=== PATIENT | female | born 1980 | race Caucasian/White ===

== ENCOUNTER 2016-12-11 | Emergency (ER) | payer MEDICAID | END 2016-12-11 19:46 | disposition home or self-care (01) ==

== ENCOUNTER 2016-12-12 13:26 | Emergency (ER) | payer MEDICAID ==
[2016-12-12] MEDS ORDERED: SULFAMETH/TRIMETH DS 800/160 MG TABLET PO STA (14:25)
[2016-12-12] MEDS ORDERED: HYDROcod/ACETAM 5/325 MG TABLET PO STA (14:25)
[2016-12-12] MEDS ORDERED: ONDANSETRON ODT 4 MG TABLET TL STA (14:32)
[2016-12-12] MEDS ORDERED: CEPHALEXIN 250 MG CAPSULE PO STA (14:32)
[2016-12-12] MEDS ORDERED: HYDROcod/ACETAM 5/325 MG TABLET ONE (14:35)
[2016-12-12] MEDS ORDERED: CEPHALEXIN 250 MG CAPSULE PO ONE (14:36)
[2016-12-12] MEDS ORDERED: ONDANSETRON ODT 4 MG TABLET ONE (14:36)
[2016-12-12] MEDS ORDERED: SULFAMETH/TRIMETH DS 800/160 MG TABLET PO ONE (14:36)
== END 2016-12-12 14:52 | disposition home or self-care (01) ==
DX: L03.211 Cellulitis of face (principal)
CPT/HCPCS: 99283; A9270; Q0162

== ENCOUNTER 2017-06-21 13:05 | Emergency (ER) | payer MEDICAID ==
[2017-06-21] MEDS ORDERED: HYDROcod/ACETAM 5/325 MG TABLET PO STA (13:16)
--- NOTE | 2017-06-21 13:18 | ED Physician Documentation ---
PD HPI UPPER EXT INJURY - Stated complaint Stated Complaint: R FINGERS INJ - History obtained from History obtained from: Patient - History of Present Illness Location: Right, Hand Type of injury: Crush (in car door, hurt mid phalanges of 3rd/4th fingers) Where injury occurred: Home Timing - onset: Yesterday Review of Systems Constitutional: reports: Reviewed and negative Cardiac: reports: Reviewed and negative Respiratory: reports: Reviewed and negative PD PAST MEDICAL HISTORY - Past Medical History Cardiovascular: None Respiratory: None Neuro: Headache/migraine Endocrine/Autoimmune: None GI: None 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 : None HEENT: None Psych: Depression, Anxiety Musculoskeletal: None Derm: None - Past Surgical History Past Surgical History: Yes - Present Medications Home Medications: Ambulatory Orders Medication Instructions Recorded Confirmed Buspirone HCl 30 mg PO TID 10/20/15 06/21/17 Fluoxetine HCl [Prozac] 20 mg PO DAILY 10/20/15 06/21/17 Loratadine [Claritin] 10 mg PO DAILY PRN #5 tablet 10/30/15 06/21/17 Pantoprazole Sodium [Protonix] 20 mg PO DAILY 04/23/16 06/21/17 Ondansetron Odt [Zofran] 4 mg TL Q6H PRN #10 tablet 12/12/16 06/21/17 - Allergies Allergies/Adverse Reactions: Allergies Allergy/AdvReac Type Severity Reaction Status Date / Time aspirin Allergy Unknown Verified 06/21/17 13:22 hydromorphone HCl * Allergy Nausea Verified 06/21/17 13:22 [From Dilaudid] iodine Allergy Respiratory Verified 06/21/17 13:22 latex Allergy Hives Verified 06/21/17 13:22 oxycodone HCl * Allergy Emesis Verified 06/21/17 13:22 [From Percocet] Penicillins Allergy Hives Verified 06/21/17 13:22 codeine AdvReac Emesis Verified 06/21/17 13:22 pseudoephedrine HCl * AdvReac Edema Verified 06/21/17 13:22 [From Sudafed] erythromycin eye ointment AdvReac Intermediate swelling Uncoded 06/21/17 13:22 - Social History Does the pt smoke?: No Smoking Status: Never smoker Does the pt drink ETOH?: Yes Does the pt have substance abuse?: No - Immunizations Immunizations are current?: Yes - POLST Patient has POLST: No PD ED PE NORMAL - Vitals Vital signs reviewed: Yes - General General: Alert and oriented X 3, No acute distress - Extremities Extremities: Other (Tender to palpation mid phalanges of the third and fourth fingers of the right hand without deformity. Limited range of motion but NVI at the tips.) - Neuro Neuro: Alert and oriented X 3, Normal speech - Psych Psych: Normal mood, Normal affect Results - Vitals Vitals: Vital Signs - 24 hr 06/21/17 13:17 Temperature 36.7 C Heart Rate 82 Respiratory 16 Rate Blood Pressure 111/77 O2 Saturation 98 Oxygen O2 Source Room air - Rads (name of study) 3v R hand Radiology: EMP read contemporaneously (normal) Departure - Departure Disposition: 01 Home, Self Care Clinical Impression: Injury, crush, finger Qualifiers: Encounter type: initial encounter Qualified Code(s): S67.10XA - Crushing injury of unspecified finger(s), initial encounter Condition: Good Record reviewed to determine appropriate education?: Yes Instructions: ED Crush Injury Finger No Fx Comments: Ibuprofen as needed for pain, follow-up with your physician in 1 week if not improved. Discharge Date/Time: 06/21/17 13:39
[2017-06-21 13:19] VITALS: BP 111/77
[2017-06-21] MEDS ORDERED: HYDROcod/ACETAM 5/325 MG TABLET ONE (13:32)
--- NOTE | 2017-06-21 13:50 | XRAY Preliminary Report ---
Exam: XR Hand 3 View RT IMPRESSION: No fracture or subluxation. [facility] SITE ID: [id number]
--- NOTE | 2017-06-21 13:52 | XRAY Report ---
EXAM: RIGHT HAND RADIOGRAPHY EXAM DATE: 06/21/2017 01:41 PM. CLINICAL HISTORY: Injuries of 3rd/4th fingers. COMPARISON: None. TECHNIQUE: 3 views. FINDINGS: Bones: Normal. No fractures or bone lesions. Joints: Normal. No subluxations. Soft Tissues: Normal. No soft tissue swelling. IMPRESSION: No fracture or subluxation. [facility] Referring Provider Line: [phone] SITE ID: [id number]
== END 2017-06-21 13:39 | disposition home or self-care (01) ==
LOC: ED 13:05
DX: S67.190A Crushing injury of right index finger, initial encounter (principal); S67.192A Crushing injury of right middle finger, initial encounter; W23.0XXA Caught, crushed, jammed, or pinched between moving objects, initial encounter; Y93.89 Activity, other specified
CPT/HCPCS: 73130; 99283; A9270

== ENCOUNTER 2017-08-17 15:18 | Emergency (ER) | payer MEDICAID ==
[2017-08-17 15:27] VITALS: BP 108/75
[2017-08-17 15:54] LABS: HCG UR QUAL POSITIVE
--- NOTE | 2017-08-17 16:41 | ED Physician Documentation ---
PD HPI NVD - Stated complaint Stated Complaint: NAUSEA - Chief complaint Chief Complaint: Abd Pain - History obtained from History obtained from: Patient - History of Present Illness Timing - duration: Days Timing - details: Gradual onset, Still present, Waxing and waning Associated symptoms: Loss of appetite, Other (having nausea and some breast tenderness for several days. Is late on menses by a week. Had home test. Mild lower abd cramping at times. No bleeding. Is going on plane trip to visit relatives in [place] and wants to be sure flying is okay in early .). No: Abdominal pain, Dizzy, Near syncope / syncope Worsened by: Eating Recently seen: Not recently seen Review of Systems Constitutional: denies: Fever, Chills Nose: denies: Rhinorrhea / runny nose, Congestion Throat: denies: Sore throat Respiratory: denies: Cough GI: reports: Nausea. denies: Abdominal Swelling, Vomiting, Diarrhea, Bloody / black stool : reports: LMP (5 weeks ago). 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 : None HEENT: None Psych: Depression, Anxiety Musculoskeletal: None Derm: None - Past Surgical History Past Surgical History: Yes - Present Medications Home Medications: Ambulatory Orders Medication Instructions Recorded Confirmed Buspirone HCl 30 mg PO TID 10/20/15 06/21/17 Fluoxetine HCl [Prozac] 20 mg PO DAILY 10/20/15 06/21/17 Loratadine [Claritin] 10 mg PO DAILY PRN #5 tablet 10/30/15 06/21/17 Pantoprazole Sodium [Protonix] 20 mg PO DAILY 04/23/16 06/21/17 Ondansetron Odt [Zofran] 4 mg TL Q6H PRN #10 tablet 12/12/16 06/21/17 Doxylamine Succinate [[place]] 25 mg PO TID #60 tablet 08/17/17 Ondansetron HCl [Zofran] 4 mg PO Q6H PRN #20 tablet 08/17/17 Pnv95/Ferrous Fumarate/FA 1 each PO DAILY #30 tablet 08/17/17 [ Tablet] Pyridoxine HCl [Vitamin B-6] 25 mg PO BID #60 tablet 08/17/17 - Allergies Allergies/Adverse Reactions: Allergies Allergy/AdvReac Type Severity Reaction Status Date / Time aspirin Allergy Unknown Verified 06/21/17 13:22 hydromorphone HCl * Allergy Nausea Verified 06/21/17 13:22 [From Dilaudid] iodine Allergy Respiratory Verified 06/21/17 13:22 latex Allergy Hives Verified 06/21/17 13:22 oxycodone HCl * Allergy Emesis Verified 06/21/17 13:22 [From Percocet] Penicillins Allergy Hives Verified 06/21/17 13:22 codeine AdvReac Emesis Verified 06/21/17 13:22 pseudoephedrine HCl * AdvReac Edema Verified 06/21/17 13:22 [From Sudafed] erythromycin eye ointment AdvReac Intermediate swelling Uncoded 06/21/17 13:22 - Social History Does the pt smoke?: No Smoking Status: Never smoker Does the pt drink ETOH?: Yes Does the pt have substance abuse?: No - Immunizations Immunizations are current?: Yes - POLST Patient has POLST: No PD ED PE NORMAL - Vitals Vital signs reviewed: Yes - General General: Alert and oriented X 3, No acute distress, Well developed/nourished - HEENT HEENT: Pharynx benign - Neck Neck: Supple, no meningeal sign, No adenopathy - Cardiac Cardiac: RRR, No murmur - Respiratory Respiratory: Clear bilaterally - Abdomen Abdomen: Soft, Non tender - Female Female : Deferred - Back Back: No CVA TTP - Derm Derm: Normal color, Warm and dry - Neuro Neuro: Alert and oriented X 3, No motor deficit, Normal speech Results - Vitals Vitals: Oxygen O2 Source Room air - Labs Labs: Laboratory Tests 08/17/17 08/17/17 08/17/17 15:37 17:00 17:00 WBC 7.8 RBC 4.59 Hgb 13.7 Hct 40.3 MCV 87.9 MCH 29.8 MCHC 33.9 RDW 13.4 Plt Count 250 MPV 7.3 L Neut # 5.1 Lymph # 2.0 [place] # 0.6 Eos # 0.0 Baso # 0.1 Absolute Nucleated RBC 0.00 Nucleated RBC % 0.0 HCG, Quant 4350.00 Ur Specific [place] <=1.005 Urine HCG, Qual POSITIVE - Rads (name of study) IUP with GS size 4.6 weeks Radiology: Prelim report reviewed (IUP with GS 4.6 weeks. No free fluid. ) PD MEDICAL DECISION MAKING - ED course Complexity details: reviewed results, considered differential (early with IUP established by U/S. ), d/w patient Departure - Departure Disposition: 01 Home, Self Care Clinical Impression: Nausea, Early stage of Intrauterine normal Qualifiers: Trimester: first trimester Qualified Code(s): Z34.91 - Encounter for supervision of normal , unspecified, first trimester Condition: Stable Record reviewed to determine appropriate education?: Yes Instructions: ED Preg Established Normal Sxs Follow-Up: Savannah Mo ARNP [Primary Care Provider] - Andreia Betts DO [Provider Admit Priv/Credential] - Prescriptions: Doxylamine Succinate [Wal-[place]eland] 25 mg PO TID #60 tablet Ondansetron HCl [Zofran] 4 mg PO Q6H PRN #20 tablet PRN Reason: Nausea / Vomiting Pnv95/Ferrous Fumarate/FA [ Tablet] 1 each PO DAILY #30 tablet Pyridoxine HCl [Vitamin B-6] 25 mg PO BID #60 tablet Comments: Small frequent fluids. Try to stay well-hydrated. Vitamin B6 twice daily for the next month. Add doxylamine 3 times a day as needed for nausea. Add ondansetron every 6 hours additionally if needed for nausea. Take vitamin daily though hold it if you are feeling more nauseous with it. Follow- up with PATHOLOGY TECH upon return from her trip. Discharge Date/Time: 08/17/17 18:24
[2017-08-17] MEDS ORDERED: METOCLOPRAMIDE 10 MG TABLET PO STA (16:52)
[2017-08-17] MEDS ORDERED: METOCLOPRAMIDE 10 MG TABLET ONE (17:01)
[2017-08-17 17:08] LABS: BASOPHILS # (AUTO) 0.1 10^3/uL (0.0-0.1); HGB - HEMOGLOBIN 13.7 g/dL (12.0-16.0); MONOCYTES # (AUTO) 0.6 10^3/uL (0.0-1.0)
[2017-08-17 17:10] LABS: BASOPHILS % (AUTO) 0.7 %; EOSINOPHILS % (AUTO) 0.5 %; HCT - HEMATOCRIT 40.3 % (37.0-47.0); LYMPHOCYTES % (AUTO) 25.9 %; MEAN CORPUSCULAR HEMOGLOBIN 29.8 pg (27.0-31.0); MEAN CORPUSCULAR HGB CONC 33.9 g/dL (32.0-36.0); MEAN CORPUSCULAR VOLUME 87.9 fL (81.0-99.0); MEAN PLATELET VOLUME 7.3 fL (7.9-10.8); MONOCYTES % (AUTO) 7.5 %; NEUTROPHILS # (AUTO) 5.1 10^3/uL (1.5-6.6); NEUTROPHILS % (AUTO) 65.4 %; RED BLOOD COUNT 4.59 10^6/uL (4.20-5.40); RED CELL DISTRIBUTION WIDTH 13.4 % (12.0-15.0); UNCORRECTED WHITE BLOOD COUNT 7.8 x10^3/uL; WHITE BLOOD COUNT 7.8 x10^3/uL (4.8-10.8)
--- NOTE | 2017-08-17 18:31 | Ultrasound Preliminary Report ---
Exam: US OB First Trimester IMPRESSION: 1. Single viable intrauterine at EGA 5 weeks 2 days with RUFUS 04/17/2018 based on mean gesta tional sac diameter, which is concordant with clinical dates. 2. No ovarian torsion. 3. 3.5 and 2.6 cm left ovarian cysts. [facility] SITE ID: [id number]
--- NOTE | 2017-08-17 18:39 | Ultrasound Report ---
REVISED: THIS REPORT WAS ORIGINALLY SIGNED ON 08/17/2017 @ 1839. ORDERS LINKED ON 08/20/2017 EXAM: FIRST TRIMESTER OBSTETRIC ULTRASOUND (Less than 11 weeks) EXAM DATE: 08/17/2017 06:04 PM. CLINICAL HISTORY: Early , cramping and nausea. LMP: 07/14/2017. COMPARISONS: None. TECHNIQUE: Transabdominal and transvaginal ultrasound examination with static image documentation. CLINICAL DATES: EGA 4 weeks, 6 days with RUFUS 04/20/2018 based on LMP. ASSESSMENT: Gestational Sac: Single intrauterine. Mean gestational sac diameter: 6.0 mm = 5 weeks 2 days. Embryo: CRL not visualized. No cardiac activity seen. Yolk sac: Not visualized. Amniotic fluid: Not accurately assessed at this gestational age. Early placenta: Not visible at this gestational age. Other: No perigestational fluid collection demonstrated. MATERNAL STRUCTURES: Uterus: Anteverted. Unremarkable. Cervix: Closed. Right Ovary/Adnexa: Right ovary measures 3.5 x 2.5 x 2.7 cm, 12.3 cc. Normal right ovarian blood flow. Left Ovary/Adnexa: Unremarkable. The ovary measures 6.0 x 3.9 x 4.1 cm, volume 50.1 cc. Normal left ovarian blood flow. 2.0 x 3.5 x 1.6 cm and 1.8 x 2.6 x 1.6 cm cyst (versus a single septated 3.3 x 2.8 x 3.2 cm cyst). Free Fluid: None. Other: None. IMPRESSION: 1. Single viable intrauterine at EGA 5 weeks 2 days with RUFUS 2017 based on mean gestational sac diameter, which is concordant with clinical dates. 2. No ovarian torsion. 3. 3.5 and 2.6 cm left ovarian cysts. [facility] Referring Provider Line: [phone] SITE ID: [id number]
== END 2017-08-17 18:24 | disposition home or self-care (01) ==
LOC: ED 15:18
DX: Z34.91 Encounter for supervision of normal pregnancy, unspecified, first trimester (principal); R11.0 Nausea; Z3A.01 Less than 8 weeks gestation of pregnancy
CPT/HCPCS: 36415; 76801; 76817; 81025; 84702; 85025; 99283; A9270

== ENCOUNTER 2017-09-24 14:08 | Outpatient (CLI) | payer MEDICAID ==
[2017-09-24 14:28] LABS: BASOPHILS # (AUTO) 0.1 10^3/uL (0.0-0.1); BASOPHILS % (AUTO) 0.7 %; EOSINOPHILS % (AUTO) 0.4 %; HCT - HEMATOCRIT 38.8 % (37.0-47.0); HGB - HEMOGLOBIN 13.3 g/dL (12.0-16.0); LYMPHOCYTES # (AUTO) 1.6 10^3/uL (1.5-3.5); LYMPHOCYTES % (AUTO) 19.8 %; MEAN CORPUSCULAR HEMOGLOBIN 29.9 pg (27.0-31.0); MEAN CORPUSCULAR HGB CONC 34.3 g/dL (32.0-36.0); MEAN PLATELET VOLUME 6.9 fL (7.9-10.8); MONOCYTES # (AUTO) 0.4 10^3/uL (0.0-1.0); MONOCYTES % (AUTO) 5.5 %; NEUTROPHILS # (AUTO) 6.1 10^3/uL (1.5-6.6); NEUTROPHILS % (AUTO) 73.6 %; RED BLOOD COUNT 4.46 10^6/uL (4.20-5.40); RED CELL DISTRIBUTION WIDTH 13.8 % (12.0-15.0); UNCORRECTED WHITE BLOOD COUNT 8.2 x10^3/uL; WHITE BLOOD COUNT 8.2 x10^3/uL (4.8-10.8)
[2017-09-24 14:38] LABS: BILIRUBIN,URINE NEGATIVE (NEGATIVE)
[2017-09-24 14:58] LABS: WBC,URINE 0-3 /HPF (0-5)
[2017-09-29 18:31] LABS: TEST RESULT REPORT
== END 2017-09-24 14:09 | disposition home or self-care (01) ==
LOC: LAB 14:08
PROVIDERS: ATTEND Obstetrics & Gynecology
DX: Z36.9 Encounter for antenatal screening, unspecified (principal); Z11.3 Encounter for screening for infections with a predominantly sexual mode of transmission; N89.8 Other specified noninflammatory disorders of vagina
CPT/HCPCS: 36415; 81001; 81599; 85025; 86762; 86780; 86850; 86900; 86901; 87340; 87389; 87480; 87491; 87510; 87591; 87660

== ENCOUNTER 2017-09-24 14:20 | Outpatient (CLI) | payer MEDICAID | END 2017-09-24 14:21 | disposition home or self-care (01) | LOC: LAB.R 14:20 | PROVIDERS: ATTEND Obstetrics & Gynecology | DX: Z11.3 Encounter for screening for infections with a predominantly sexual mode of transmission (principal); N89.8 Other specified noninflammatory disorders of vagina | CPT/HCPCS: 87480; 87491; 87510; 87591; 87660 ==

== ENCOUNTER 2017-10-02 09:24 | Outpatient (CLI) | payer MEDICAID ==
--- NOTE | 2017-10-02 12:13 | Ultrasound Report ---
FIRST TRIMESTER OB ULTRASOUND WITH TRANSVAGINAL: 10/02/2017 CLINICAL INDICATION: dating. TECHNIQUE: Transabdominal pelvic ultrasound performed for global evaluation. Transvaginal pelvic ul trasound performed for detailed evaluation. Real-time scanning performed and static images obtained. COMPARISON: 08/17/2017 FINDINGS: There is a single viable intrauterine gestation present. heart rate is 159 BPM. By crown-rump length, the fetus measures 11 weeks 5 days (12 weeks 0 days by previous sonogram). The g estational sac is regular. The right ovary measures 5.3 x 3.6 x 2.2 cm, and demonstrates a 2.8 cm corpus luteum. The left ovary measures 5.3 x 2.1 x 1.7 cm, and contains a 2.1 cm cyst. No free fluid is present. IMPRESSION: SINGLE VIABLE INTRAUTERINE GESTATION, MEASURING 11 WEEKS 5 DAYS BY CROWN-RUMP LENGTH. E XPECTED GROWTH FROM PREVIOUS SONOGRAM OF 08/17/2017. JOB #: [id number] EXT JOB #:[id number]
== END 2017-10-02 09:25 | disposition home or self-care (01) ==
LOC: DI 09:24
PROVIDERS: ATTEND Obstetrics & Gynecology
DX: Z36.87 Encounter for antenatal screening for uncertain dates (principal)
CPT/HCPCS: 76801; 76817

== ENCOUNTER 2017-10-11 18:15 | Outpatient (CLI) | payer MEDICAID | END 2017-10-11 18:16 | disposition EMS.NT | LOC: EMS 18:15 | PROVIDERS: ATTEND Surgery | DX: R05 Cough (principal) ==

== ENCOUNTER 2017-10-11 22:46 | Emergency (ER) | payer MEDICAID ==
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
[2017-10-11] MEDS ORDERED: ALBUTEROL NEB 2.5 MG/3 ML INH STA (23:08)
[2017-10-11] MEDS ORDERED: DEXAMETHASONE 10 MG/ML VIAL PO STA (23:08)
[2017-10-11] MEDS ORDERED: LIDOCAINE OINTMENT 5% 35.44 GM TUBE TOP STA (23:08)
[2017-10-11] MEDS ORDERED: ACETAMINOPHEN 325 MG TABLET PO STA (23:09)
[2017-10-11] MEDS ORDERED: ALBUTEROL NEB 2.5 MG/3 ML INH ONE (23:21)
[2017-10-11] MEDS ORDERED: ACETAMINOPHEN 325 MG TABLET PO ONE (23:22)
[2017-10-11] MEDS ORDERED: DEXAMETHASONE 10 MG/ML VIAL ONE (23:22)
[2017-10-11] MEDS ORDERED: LIDOCAINE OINTMENT 5% 35.44 GM TUBE ONE (23:22)
[2017-10-12] MEDS ORDERED: ONDANSETRON ODT 4 MG TABLET TL STA (00:32)
[2017-10-12] MEDS ORDERED: ONDANSETRON ODT 4 MG TABLET ONE (00:43)
[2017-10-12 00:48] VITALS: BP 103/65
== END 2017-10-12 00:50 | disposition home or self-care (01) ==
LOC: ED 22:46
DX: O26.891 Other specified pregnancy related conditions, first trimester (principal); T59.811A Toxic effect of smoke, accidental (unintentional), initial encounter; J68.9 Unspecified respiratory condition due to chemicals, gases, fumes and vapors; R06.02 Shortness of breath; T23.222A Burn of second degree of single left finger (nail) except thumb, initial encounter; T31.0 Burns involving less than 10% of body surface; X19.XXXA Contact with other heat and hot substances, initial encounter; Y92.030 Kitchen in apartment as the place of occurrence of the external cause; Z3A.13 13 weeks gestation of pregnancy
CPT/HCPCS: 82375; 94640; 99283; 99284; A9270; J7613; Q0162

== ENCOUNTER 2017-10-22 14:07 | Outpatient (CLI) | payer SELFPAY | END 2017-10-22 14:08 | disposition home or self-care (01) | LOC: LAB 14:07 | DX: O09.522 Supervision of elderly multigravida, second trimester (principal) | CPT/HCPCS: 36415 ==

== ENCOUNTER 2017-11-17 13:21 | Emergency (ER) | payer MEDICAID ==
[2017-11-17 13:42] VITALS: BP 115/70
--- NOTE | 2017-11-17 14:07 | ED Physician Documentation ---
History of Present Illness - Stated complaint Stated Complaint: 18WKS PREGANT-NO BABY MOVEMENT - Chief complaint Chief Complaint: General - History obtained from History obtained from: Patient - History of Present Illness Timing: Today Pain level max: 0 Pain level now: 0 Improved by: nothing Worsened by: nothing - Additonal information Additional information: Patient is a 37-year-old female 4 para 3 who presents to the emergency department with decreased movement over the past few days. Went [facility] this morning to be seen, but states the wait was too long so came here. Has not had any vaginal bleeding or discharge. No cramping. 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 : None HEENT: None Psych: Depression, Anxiety Musculoskeletal: None Derm: None - Past Surgical History Past Surgical History: Yes - Present Medications Home Medications: Ambulatory Orders Medication Instructions Recorded Confirmed Buspirone HCl 30 mg PO TID 10/20/15 11/17/17 Fluoxetine HCl [Prozac] 20 mg PO DAILY 10/20/15 11/17/17 Loratadine [Claritin] 10 mg PO DAILY PRN #5 tablet 10/30/15 11/17/17 Pantoprazole Sodium [Protonix] 20 mg PO DAILY 04/23/16 11/17/17 Ondansetron Odt [Zofran] 4 mg TL Q6H PRN #10 tablet 12/12/16 11/17/17 Doxylamine Succinate [[place]] 25 mg PO TID #60 tablet 08/17/17 11/17/17 Ondansetron HCl [Zofran] 4 mg PO Q6H PRN #20 tablet 08/17/17 11/17/17 Pnv95/Ferrous Fumarate/FA 1 each PO DAILY #30 tablet 08/17/17 11/17/17 [ Tablet] Pyridoxine HCl [Vitamin B-6] 25 mg PO BID #60 tablet 08/17/17 11/17/17 Albuterol Sulf [Ventolin Hfa 1 - 2 puffs INH Q4HR PRN #1 inhaler 10/12/17 Inhaler] Dexamethasone [Decadron] 4 mg PO DAILY #5 tablet 10/12/17 11/17/17 - Allergies Allergies/Adverse Reactions: Allergies Allergy/AdvReac Type Severity Reaction Status Date / Time aspirin Allergy Unknown Verified 10/11/17 22:53 hydromorphone HCl * Allergy Nausea Verified 10/11/17 22:53 [From Dilaudid] iodine Allergy Respiratory Verified 10/11/17 22:53 latex Allergy Hives Verified 10/11/17 22:53 oxycodone HCl * Allergy Emesis Verified 10/11/17 22:53 [From Percocet] Penicillins Allergy Hives Verified 10/11/17 22:53 codeine AdvReac Emesis Verified 10/11/17 22:53 pseudoephedrine HCl * AdvReac Edema Verified 10/11/17 22:53 [From Sudafed] erythromycin eye ointment AdvReac Intermediate swelling Uncoded 10/11/17 22:53 - Social History Does the pt smoke?: No Smoking Status: Never smoker Does the pt drink ETOH?: Yes Does the pt have substance abuse?: No - Immunizations Immunizations are current?: Yes - POLST Patient has POLST: No PD ED PE NORMAL - Vitals Vital signs reviewed: Yes - General General: Alert and oriented X 3, No acute distress - HEENT HEENT: Moist mucous membranes - Neck Neck: Supple, no meningeal sign - Cardiac Cardiac: RRR - Respiratory Respiratory: No respiratory distress, Clear bilaterally - Abdomen Abdomen: Soft, Non tender, Non distended, Other (gravid uterus) - Derm Derm: Warm and dry - Extremities Extremities: No edema - Neuro Neuro: Alert and oriented X 3 - Psych Psych: Normal mood, Normal affect Results - Vitals Vitals: Vital Signs - 24 hr 11/17/17 13:36 Temperature 36.6 C Heart Rate 94 Respiratory 18 Rate Blood Pressure 115/70 O2 Saturation 97 Oxygen O2 Source Room air PD MEDICAL DECISION MAKING - ED course Complexity details: considered differential, d/w patient ED course: Patient is a 37-year-old female 4 para 3 who presents to the emergency department with decreased movement for the past 2 days. She received a bedside ultrasound in the emergency department with good movement and a heart rate of 146 bpm. Images were shown to the patient. She will follow -up with OB for further care. No other complaints at this time. Patient counseled regarding signs and symptoms for which I believe and urgent re- evaluation would be necessary. Patient with good understanding of and agreement to plan and is comfortable going home at this time This document was made in part using voice recognition software. While efforts are made to proofread this document, sound alike and grammatical errors may occur. Departure - Departure Disposition: 01 Home, Self Care Clinical Impression: Qualifiers: Weeks of gestation: 18 weeks Qualified Code(s): Z3A.18 - 18 weeks gestation of Condition: Good Instructions: ED Preg Established Normal Sxs Follow-Up: Elmer Quan MD [Provider Admit Priv/Credential] - 11/19/17 (as scheduled) Comments: Return if you worsen. Your bedside ultrasound is normal today.
== END 2017-11-17 14:16 | disposition home or self-care (01) ==
LOC: ED 13:21
DX: O36.8120 Decreased fetal movements, second trimester, not applicable or unspecified (principal); Z3A.18 18 weeks gestation of pregnancy
CPT/HCPCS: 99282; 99283

== ENCOUNTER 2017-12-18 12:45 | Outpatient (CLI) | payer MEDICAID ==
--- NOTE | 2017-12-22 11:03 | Ultrasound Report ---
OB ULTRASOUND: 12/18/2017 CLINICAL INDICATION: Anatomy. TECHNIQUE: Real-time scanning was performed with signs and displays sales representative static images obtained. LAST MENSTRUAL PERIOD 07/14/2017 Clinical Age 22 weeks 3 days US Age 23 weeks 1 day EFW Hadlock 542 g EFW% Hadlock --- Heart Rate 147 bpm EDC --- US EDC 04/15/2018 BPD Hadlock 23 weeks 3 days; Mean mm 57.1 HC Hadlock 23 weeks 0 days; Mean mm 208.4 AC Hadlock 23 weeks 4 days; Mean mm 188.1 FL Hadlock 21 weeks 6 days; Mean mm 37.3 Presentation cephalic Placental Location posterior Cervical Length 3.4 cm Amniotic Fluid subjectively normal . FINDINGS There is a single viable intrauterine gestation, in cephalic presentation. heart rate is 147 BPM. The placenta is posterior, without evidence of previa. Amniotic fluid volume is subjectively normal, with the deepest pocket of 5.6 cm. By size, the fetus measures 23 weeks 1 day (22 weeks 3 days per physician order). The following anatomic structures were visualized and appear normal: The intracranial contents, including the ventricles and posterior fossa; the lips and orbits; the spine; the heart, including 4 chamber view and outflow tracts, and diaphragm; the abdominal contents, including the stomach, the bilateral kidneys, and urinary bladder, as well as a normal 3 vessel cord insertion; 4 limbs. Due to positioning, coronal imaging of the face could not be obtained. No free fluid or adnexal lesion is appreciated. IMPRESSION: SINGLE VIABLE INTRAUTERINE GESTATION, MEASURING 23 WEEKS 1 DAY BY SIZE, IN KEEPING WITH DATING PER THE ORDER. LIMITED VISUALIZATION OF THE FACE. OTHERWISE, NORMAL ANATOMIC SURVEY. TD: 12/18/2017 17:34 [facility]
== END 2017-12-18 12:46 | disposition home or self-care (01) ==
LOC: DI 12:45
PROVIDERS: ATTEND Obstetrics & Gynecology
DX: Z34.82 Encounter for supervision of other normal pregnancy, second trimester (principal)
CPT/HCPCS: 76811

== ENCOUNTER 2018-01-03 20:12 | Observation (INO) | payer MEDICAID ==
[2018-01-03] MEDS ORDERED: SODIUM CHLORIDE FLUSH 0.9% 10 ML SYRINGE ONE (21:09)
[2018-01-03 21:46] LABS: BASOPHILS # (AUTO) 0.1 10^3/uL (0.0-0.1); BASOPHILS % (AUTO) 0.7 %; EOSINOPHILS # (AUTO) 0.1 10^3/uL (0.0-0.7); EOSINOPHILS % (AUTO) 0.5 %; HGB - HEMOGLOBIN 11.9 g/dL (12.0-16.0); LYMPHOCYTES # (AUTO) 1.9 10^3/uL (1.5-3.5); LYMPHOCYTES % (AUTO) 15.8 %; MEAN CORPUSCULAR HEMOGLOBIN 30.4 pg (27.0-31.0); MEAN CORPUSCULAR HGB CONC 33.9 g/dL (32.0-36.0); MEAN CORPUSCULAR VOLUME 89.9 fL (81.0-99.0); MEAN PLATELET VOLUME 7.3 fL (7.9-10.8); MONOCYTES # (AUTO) 0.6 10^3/uL (0.0-1.0); MONOCYTES % (AUTO) 5.4 %; NEUTROPHILS # (AUTO) 9.3 10^3/uL (1.5-6.6); NEUTROPHILS % (AUTO) 77.6 %; PLT - PLATELET COUNT 318 10^3/uL (130-450); RED BLOOD COUNT 3.92 10^6/uL (4.20-5.40)
--- NOTE | 2018-01-03 22:26 | Ultrasound Preliminary Report ---
Exam: US OB LIMITED Impression: 1. Posterior placenta without evidence of abruption. 2. Established EGA 24 weeks 5 days for RUFUS 04/20/2018. [facility] SITE ID: [id number]
--- NOTE | 2018-01-03 22:27 | Ultrasound Report ---
EXAM: LIMITED OBSTETRICAL ULTRASOUND EXAM DATE: 01/03/2018 09:49 PM. CLINICAL HISTORY: Abdominal trauma. Evaluate for placental abruption. COMPARISON: ultrasound. TECHNIQUE: Real-time sonographic evaluation of the fetus performed by the legal file clerk. Multiple repre sentative static images were saved for review. DATING: Established EGA 24 weeks 5 days with RUFUS 04/20/2018. GENERAL EVALUATION Hughes . Cardiac activity: 144 bpm. movement: Visualized. Presentation: Cephalic. Placenta: Posterior position. No evidence of previa or abruption. Impression: 1. Posterior placenta without evidence of abruption. 2. Established EGA 24 weeks 5 days for RUFUS 04/20/2018. [facility] Referring Provider Line: [phone] SITE ID: [id number]
--- NOTE | 2018-01-03 22:52 | PROVIDER PROGRESS NOTE ---
Subjective - Prog Note Date Prog Note Date: 01/03/18 Prog Note Time: 22:50 - Subjective Subjective: Patient in bed. States she's been vomiting since her fall. Back hurts and she feels contractions. No VB and she reports the baby is moving well. went home. Patient watching TV. Objective - Vital Signs/Intake & Output Reviewed Vital Signs: Yes Vital Signs: Vital Signs x48h Temp Pulse Resp BP Pulse Ox 01/03/18 20:20 98.2 F 88 18 130/89 H 97 - Objective General Appearance: positive: No acute distress Eyes Bilateral: positive: Normal inspection - Lab Results Fish Bones: 01/03/18 21:25 Other Labs: Lab Results x24hrs 01/03/18 Range/Units 21:25 WBC 12.0 H (4.8-10.8) x10^3/uL RBC 3.92 L (4.20-5.40) 10^6/uL Hgb 11.9 L (12.0-16.0) g/dL Hct 35.3 L (37.0-47.0) % MCV 89.9 (81.0-99.0) fL MCH 30.4 (27.0-31.0) pg MCHC 33.9 (32.0-36.0) g/dL RDW 14.0 (12.0-15.0) % Plt Count 318 (130-450) 10^3/uL MPV 7.3 L (7.9-10.8) fL Neut # 9.3 H (1.5-6.6) 10^3/uL Lymph # 1.9 (1.5-3.5) 10^3/uL [place] # 0.6 (0.0-1.0) 10^3/uL Eos # 0.1 (0.0-0.7) 10^3/uL Baso # 0.1 (0.0-0.1) 10^3/uL Absolute Nucleated RBC 0.00 x10^3/uL Nucleated RBC % 0.0 /100WBC - Diagnostic Imaging Diagnostic Imaging Results: positive: Final report reviewed (No abruption) - Other Results/Comments Other Results/Comments: FHT baseline 130-140's, good LTV. Reactive and category 1. Variables. Contractions Q 2-4 minutes Assessment/Plan - Problem List (1) Traumatic injury during in second trimester Impression: 37 yo with a 25w1d IUP S/p 01/03/2018 fall on her abdomen Limited OB U/S does not show placental abruption Stable H/H Constant contractions on toco now, Q 2-4 minute Start LR and PRN Zofran Pending FMB Flow cystometry for cell presence in maternal blood stream
[2018-01-03] MEDS ORDERED: ONDANSETRON 4 MG/2 ML VIAL IVP PRN (22:57)
[2018-01-03] MEDS ORDERED: ZOLPIDEM 5 MG TABLET PO PRN (22:58)
[2018-01-03] MEDS ORDERED: diphenhydrAMINE 25 MG CAPSULE PO PRN (22:58)
[2018-01-03] MEDS ORDERED: ALBUTEROL 6.7 GM INHALER INH PRN (22:59)
[2018-01-03] MEDS ORDERED: LORATADINE 10 MG TABLET PO PRN (22:59)
[2018-01-03] MEDS ORDERED: LACTATED RINGERS 1,000 ML IV SCH (23:00)
[2018-01-03] MEDS ORDERED: LACTATED RINGERS 500 ML IV ONE (23:03)
[2018-01-03] MEDS ORDERED: LACTATED RINGERS 1,000 ML IV ONE (23:04)
[2018-01-03] MEDS ORDERED: ONDANSETRON 4 MG/2 ML VIAL ONE (23:04)
[2018-01-04] MEDS: ACETAMINOPHEN 500 MG TABLET PO SCH ×2 (00:46→10:22)
[2018-01-04] MEDS: SERTRALINE 50 MG TABLET PO SCH ×2 (00:46→10:23)
--- NOTE | 2018-01-04 06:26 | HISTORY & PHYSICAL EXAMINATION ---
DATE OF ADMISSION: 01/03/2018 IDENTIFICATION: This is a 37-year-old, G3, P0-0-2-0, with a 25 weeks 0 day intrauterine , EDC 04/18/2018 changed by 11-week ultrasound. HISTORY OF PRESENT ILLNESS: The patient is a patient of [facility] who presented on the evening of 01/03/2018 after having a ground level fall. The patient states that she was coming back from a neighbor's house with a bowl of chili. She did not see the ice and had slipped and fell. As the patient describes it, she fell on her knees and then onto her abdomen. The patient states the baby is moving and denies any vaginal bleeding. It seems like her knees are her main concern with respect to pain. She denies any mason contractions. The patient is accompanied by the father of her baby. PAST MEDICAL HISTORY: 1. Anemia 2. Migraine headaches 3. Depression. PAST SURGICAL HISTORY: None ALLERGIES 1. ACETAMINOPHEN IN WHICH SHE HAS EMESIS. 2. ASPIRIN, WHICH IS UNKNOWN REACTION. 3. HYDROCODONE, SHE HAS EMESIS. 4. IODINE, WHICH SHE HAS RESPIRATORY ISSUES. 5. LATEX, IN WHICH SHE HAS HIVES. 6. OXYCODONE, WHICH SHE HAS EMESIS. 7. PENICILLIN, WHICH SHE HAS HIVES. 8. CODEINE, WHICH SHE HAS EMESIS. 9. ERYTHROMYCIN OINTMENT, WHICH SHE HAS EYE SWELLING. SOCIAL HISTORY: This is a male fetus with anticipated name of Luz Serrano. The father of the baby is Yoan and this is his first child. The patient is from [place] and her pharmacy of choice is [facility] in [place], [place]. PAST OBSTETRICAL HISTORY: 2 spontaneous abortions. PAST GYNECOLOGIC HISTORY: She has had a history of abnormal Pap smears with cervical biopsy, but otherwise the Pap smears reverted spontaneously. FAMILY HISTORY: Maternal aunt with breast, cervical and uterine cancer. Maternal grandmother, ovarian cancer. REVIEW OF SYSTEMS: Negative unless otherwise stated. OBJECTIVE VITAL SIGNS: Temperature is 98.2, heart rate 88, blood pressure 130/89, respiratory rate 18, O2 saturation 97%. GENERAL: The patient is a well-developed, well-nourished, female, in no apparent distress. She is alert, oriented x3. The patient does have graying hair. She does wear glasses. The patient does have a Southern accent. HEENT: Within normal limits. HEART: Regular. No murmurs or rubs. LUNGS: Lungs are clear to auscultation bilaterally. ABDOMEN: Gravid, nontender. No signs of ecchymosis. heart tones are difficult to continue to capture. The nurse felt that there was a deceleration initially on examination, but currently heart tones are in the 140s. Uterine Tocometry shows uterine irritability, but no mason uterine contractions. LABORATORY DATA: She is Chlamydia and gonorrhea negative and affirm was significant for Gardnerella. Pap smear was negative as well as screening for high-risk HPV. She is A positive, HIV negative, RPR nonreactive, rubella immune. Hepatitis B surface antigen is nonreactive. HIV negative. anatomical survey is consistent with dates and within normal limits, but a face examination is limited. Placenta is posterior with a cervical length of 3.4 cm. Placenta is posterior with 3-vessel cord. ASSESSMENT 1. A 37-year-old G3, P0-0-2-0, with a 25 and 0/7 week intrauterine . 2. Abdominal trauma secondary to ground level fall. PLAN 1. We will admit for observation. 2. Establish a saline lock. 3. Ultrasound to evaluate for placental abruption. 4. We will order a maternal cell screening via the B flow cystometry. TD: 01/04/2018 06:25 [facility]
[2018-01-04] MEDS ORDERED: ALBUTEROL NEB 2.5 MG/3 ML INH PRN (07:11)
--- NOTE | 2018-01-04 08:32 | PROVIDER PROGRESS NOTE ---
Subjective - Prog Note Date Prog Note Date: 01/04/18 Prog Note Time: 08:28 - Subjective Pt reports feeling: Improved Subjective: Patient lying in bed. Didn't get a lot of sleep. Ate some of her breakfast tray. at home. Objective - Vital Signs/Intake & Output Reviewed Vital Signs: Yes Vital Signs: Vital Signs x48h Temp Pulse Resp BP Pulse Ox 01/04/18 03:30 97.9 F 93 16 111/68 98 Intake & Output: Intake & Output 01/01/18 01/02/18 01/03/18 01/04/18 23:59 23:59 23:59 23:59 Intake Total 1800 Balance 1800 - Objective General Appearance: positive: No acute distress Abdomen: positive: Non-tender (Benign) Neurologic/Psychiatric: positive: Oriented x3 - Lab Results Fish Bones: 01/03/18 21:25 Other Labs: Lab Results x24hrs 01/03/18 Range/Units 21:25 WBC 12.0 H (4.8-10.8) x10^3/uL RBC 3.92 L (4.20-5.40) 10^6/uL Hgb 11.9 L (12.0-16.0) g/dL Hct 35.3 L (37.0-47.0) % MCV 89.9 (81.0-99.0) fL MCH 30.4 (27.0-31.0) pg MCHC 33.9 (32.0-36.0) g/dL RDW 14.0 (12.0-15.0) % Plt Count 318 (130-450) 10^3/uL MPV 7.3 L (7.9-10.8) fL Neut # 9.3 H (1.5-6.6) 10^3/uL Lymph # 1.9 (1.5-3.5) 10^3/uL [place] # 0.6 (0.0-1.0) 10^3/uL Eos # 0.1 (0.0-0.7) 10^3/uL Baso # 0.1 (0.0-0.1) 10^3/uL Absolute Nucleated RBC 0.00 x10^3/uL Nucleated RBC % 0.0 /100WBC Assessment/Plan - Problem List (1) Traumatic injury during in second trimester Impression: 37 yo with a 25w1d IUP S/p fall on abdomen 01/03/2018 No overnight events Reassuring maternal and status Contractions resolved after IVF Pending FMB flow cystometry; will anticipate results tomorrow or by 01/06 Plan to discharge to home Patient has an appointment with me this week for follow up Call for decreased movement, abdominal pain, vaginal bleeding Discharge Plan Disposition: Home, Self Care Condition: Good Diet: Regular Activity Restrictions: Activity as Tolerated Shower Restrictions: No No Smoking: If you smoke, Please STOP! Call for help. Follow-up with: Savannah Mo ARNP [Primary Care Provider] -
[2018-01-04] MEDS ORDERED: PRENATAL VITAMIN TABLET PO SCH (09:00)
[2018-01-04] MEDS ORDERED: DOCUSATE SODIUM 100 MG CAPSULE PO SCH (09:00)
[2018-01-04 10:19] VITALS: BP 107/66
== END 2018-01-04 08:45 | disposition home or self-care (01) ==
LOC: WFO 20:12 → FBP 20:15 → WFO 20:53 → FBP 20:54
PROVIDERS: ADMIT Obstetrics & Gynecology; ATTEND Obstetrics & Gynecology
DX: O9A.212 Injury, poisoning and certain other consequences of external causes complicating pregnancy, second trimester (principal); S39.91XA Unspecified injury of abdomen, initial encounter; O21.8 Other vomiting complicating pregnancy; Z3A.25 25 weeks gestation of pregnancy; W00.0XXA Fall on same level due to ice and snow, initial encounter; Y93.01 Activity, walking, marching and hiking
CPT/HCPCS: 36415; 76815; 85025; 96361; 96374; 99214; A9270; G0378; J7120

== ENCOUNTER 2018-01-21 10:56 | Outpatient (CLI) | payer MEDICAID ==
[2018-01-21 12:31] LABS: HGB - HEMOGLOBIN 12.2 g/dL (12.0-16.0); MEAN CORPUSCULAR HEMOGLOBIN 31.1 pg (27.0-31.0); MEAN CORPUSCULAR HGB CONC 35.2 g/dL (32.0-36.0); MEAN CORPUSCULAR VOLUME 88.3 fL (81.0-99.0); MEAN PLATELET VOLUME 6.6 fL (7.9-10.8); RED BLOOD COUNT 3.94 10^6/uL (4.20-5.40); RED CELL DISTRIBUTION WIDTH 13.8 % (12.0-15.0); WHITE BLOOD COUNT 9.3 x10^3/uL (4.8-10.8)
--- NOTE | 2018-01-21 18:23 | Ultrasound Report ---
OB FOLLOWUP: 01/21/2018 CLINICAL INDICATION: Incomplete anatomy. TECHNIQUE: Real-time scanning was performed with labor representative static images obtained. COMPARISON: 12/18/2017, 01/03/2018. FINDINGS: There is a single viable intrauterine gestation, in cephalic presentation. heart rate is 148 BPM. The placenta is posterior, without evidence of previa. Amniotic fluid volume is normal, with an JOSE R of 20.85. By size, the fetus measures 27 weeks 3 days (28 weeks 3 days by LMP). The facial structures appear unremarkable. No free fluid or adnexal lesion is appreciated. IMPRESSION: SINGLE VIABLE INTRAUTERINE GESTATION, WITH SIZE IN KEEPING WITH LMP DATING. UNREMARKABLE APPEARANCE OF THE FACIAL STRUCTURES. TD: 01/21/2018 18:22
== END 2018-01-21 10:57 | disposition home or self-care (01) ==
LOC: DI 10:56
PROVIDERS: ATTEND Obstetrics & Gynecology
DX: Z36.2 Encounter for other antenatal screening follow-up (principal); Z34.90 Encounter for supervision of normal pregnancy, unspecified, unspecified trimester
CPT/HCPCS: 36415; 76816; 82950; 86850

== ENCOUNTER 2018-02-18 16:09 | Outpatient (CLI) | payer MEDICAID ==
[2018-02-18 16:42] LABS: ALBUMIN 3.1 g/dL (3.2-5.5); ALBUMIN/GLOBULIN RATIO 0.8 (1.0-2.2); BILIRUBIN,TOTAL 0.2 mg/dL (0.2-1.0); CALCIUM 8.4 mg/dL (8.5-10.3); CREATININE 0.6 mg/dL (0.4-1.0); TOTAL PROTEIN 6.8 g/dL (6.7-8.2)
== END 2018-02-18 16:10 | disposition home or self-care (01) ==
LOC: LAB 16:09
PROVIDERS: ATTEND Obstetrics & Gynecology
DX: L29.9 Pruritus, unspecified (principal)
CPT/HCPCS: 36415; 80053; 82239

== ENCOUNTER 2018-04-07 12:32 | Outpatient (CLI) | payer MEDICAID | END 2018-04-07 23:59 | LOC: LAB.R 12:32 | PROVIDERS: ATTEND Obstetrics & Gynecology | DX: Z36.89 Encounter for other specified antenatal screening (principal) | CPT/HCPCS: 87081 ==

== ENCOUNTER 2018-04-17 20:01 | Inpatient (IN) | payer MEDICAID ==
[2018-04-17 21:15] LABS: BILIRUBIN,URINE NEGATIVE (NEGATIVE); GLUCOSE, URINE (UA) NEGATIVE (NEGATIVE); KETONES,URINE (UA) NEGATIVE (NEGATIVE); LEUKOCYTE ESTERASE, URINE NEGATIVE (NEGATIVE); NITRITE,URINE NEGATIVE (NEGATIVE); OCCULT BLOOD,URINE SMALL (NEGATIVE); PROTEIN,URINE NEGATIVE (NEGATIVE); UROBILINOGEN,URINE 0.2 (NORMAL) E.U./dL (NORMAL)
[2018-04-17 21:16] LABS: CLARITY,URINE CLEAR (CLEAR)
[2018-04-17] MEDS: SODIUM CHLORIDE FLUSH 0.9% 10 ML SYRINGE IVP PRN ×2 (21:16→22:16)
[2018-04-17 21:23] LABS: BACTERIA,URINE None Seen /HPF (None Seen); EPITHELIAL CELLS,UR MANY Transitional /HPF (<= Few); RBC,URINE 0-5 /HPF (0-5); SQUAMOUS EPITHELIAL CELL,UR FEW Squamous (<= Few)
[2018-04-17 21:25] LABS: CREATININE,URINE 73.5 mg/dL; PROTEIN/CREATININE RATIO,URINE 0.2 (<=0.2)
[2018-04-17 21:28] LABS: RUPTURE OF MEMBRANES PLUS POSITIVE (NEGATIVE)
[2018-04-17] MEDS: fentaNYL 100 MCG/2 ML VIAL IVP PRN (22:15)
[2018-04-17] MEDS: ONDANSETRON 4 MG/2 ML VIAL IVP PRN (22:15)
[2018-04-17] MEDS: LACTATED RINGERS 1,000 ML IV SCH (22:16)
[2018-04-17 22:17] LABS: BASOPHILS # (AUTO) 0.1 10^3/uL (0.0-0.1); BASOPHILS % (AUTO) 0.5 %; EOSINOPHILS # (AUTO) 0.1 10^3/uL (0.0-0.7); EOSINOPHILS % (AUTO) 0.5 %; LYMPHOCYTES # (AUTO) 1.7 10^3/uL (1.5-3.5); LYMPHOCYTES % (AUTO) 13.7 %; MEAN CORPUSCULAR HEMOGLOBIN 29.2 pg (27.0-31.0); MEAN CORPUSCULAR HGB CONC 33.9 g/dL (32.0-36.0); MEAN CORPUSCULAR VOLUME 86.2 fL (81.0-99.0); MEAN PLATELET VOLUME 7.4 fL (7.9-10.8); MONOCYTES # (AUTO) 0.7 10^3/uL (0.0-1.0); MONOCYTES % (AUTO) 5.2 %; NEUTROPHILS # (AUTO) 10.1 10^3/uL (1.5-6.6); NEUTROPHILS % (AUTO) 80.1 %; PLT - PLATELET COUNT 180 10^3/uL (130-450); RED BLOOD COUNT 3.76 10^6/uL (4.20-5.40); RED CELL DISTRIBUTION WIDTH 15.2 % (12.0-15.0); WHITE BLOOD COUNT 12.7 x10^3/uL (4.8-10.8)
[2018-04-17 22:29] LABS: CREATININE 0.9 mg/dL (0.4-1.0); URIC ACID 7.5 mg/dL (2.6-7.2)
[2018-04-17] MEDS ORDERED: diphenhydrAMINE 25 MG CAPSULE PO SCH (23:00)
[2018-04-17] MEDS: LABETALOL 100 MG TABLET PO SCH (23:01)
[2018-04-17] MEDS: HYDROCORTISONE 1% CREAM 28 GM TUBE TOP PRN (23:02)
[2018-04-17] MEDS: ACETAMINOPHEN 325 MG TABLET PO SCH (23:09)
[2018-04-18] MEDS: fentaNYL 100 MCG/2 ML VIAL IVP PRN ×3 (02:09→13:33)
[2018-04-18] MEDS: SODIUM CHLORIDE FLUSH 0.9% 10 ML SYRINGE IVP PRN (02:09)
[2018-04-18] MEDS: ACETAMINOPHEN 325 MG TABLET PO SCH ×4 (05:39→20:29)
[2018-04-18] MEDS: SODIUM CHLORIDE FLUSH 0.9% 10 ML SYRINGE IVP SCH ×3 (05:39→17:33)
[2018-04-18] MEDS: LABETALOL 100 MG TABLET PO SCH ×5 (05:40→20:31)
[2018-04-18] MEDS: OXYTOCIN/SODIUM CHLORIDE 500 ML IV SCH (06:36)
[2018-04-18] MEDS: ONDANSETRON 4 MG/2 ML VIAL IVP PRN ×3 (06:48→19:52)
[2018-04-18] MEDS: HYDROCORTISONE 1% CREAM 28 GM TUBE TOP PRN (08:03)
--- NOTE | 2018-04-18 08:49 | PROVIDER PROGRESS NOTE ---
Labor Progress Note - Uterine Monitoring Uterine Monitoring Mode: positive: External toco, Palpation Contraction Frequency (min/apart): Q4 Contraction Intensity: positive: Mild to moderate Uterine Resting Tone: positive: Soft - Monitoring Monitor Mode: positive: External ultrasound Heart Rate Baseline: 140 Heart Rate Variability: positive: Moderate (6-25 bmp) Accelerations: positive: Present, 15x15 Decelerations: positive: None Strip Review: positive: Category I - Vaginal Exam Dilation (in cm): 4 Effacement (%): 70% Station: 0 Cervical Position: Midposition - Labor Progress Note Labor Progress Note/Additional Text: Ayanna Hughes is a 37-year-old 3 para 0020 woman at 39 weeks 6 days gestation who is in labor. Her membranes have been confirmed this ruptured by ROM plus. Additionally she has elevated blood pressure as high as roughly 160/100. Essentially she is an elderly primigravida and therefore vulnerable to preeclampsia/help. Pain is a factor. She does not have a history of hypertension or cardiovascular disease baseline blood pressure 120/78 and last office visit 132/68 with negative protein. On admission PIH labs were drawn: platelets normal, liver enzymes not elevated and urine protein creatinine ratio normal. There are no symptoms of severe PIH such as headache visual changes or liver tenderness. We will maintain a close watch on her blood pressure and add labetalol and mag sulfate drip as indicated. Discussed this plan with her primary nurse Sonia. Complete H&P dictated.
--- NOTE | 2018-04-18 08:57 | PROVIDER PROGRESS NOTE ---
Labor Progress Note - Uterine Monitoring Uterine Monitoring Mode: positive: External toco, Palpation Contraction Frequency (min/apart): q 7min Contraction Intensity: positive: Mild to moderate (Mostly mild) Uterine Resting Tone: positive: Soft - Monitoring Monitor Mode: positive: External ultrasound Heart Rate Variability: positive: Moderate (6-25 bmp) Accelerations: positive: Present, 15x15 Decelerations: positive: None Strip Review: positive: Category I - Vaginal Exam Dilation (in cm): Vaginal exam not performed, Patient reports no pelvic pressure or symptoms - Labor Progress Note Labor Progress Note/Additional Text: Patient did not sleep well last night and prefers to take a nap after breakfast. Patient reports a transient headache last night that has resolved. Headache may be triggered by a gap in her Zoloft and ranitidine. She reports mild persistent nausea with bouts of nonbilious nonbloody emesis. Her blood pressure remained high and as per previous plan labetalol was started. Her blood pressures came into control with labetalol 200 every 4 hours, the dose may be requiring some titration to prevent bottoming her out. Her edema has improved but +1 tibial and finger edema persist. Overall patient requires delivery due to gestational hypertension and ruptured membranes. Exact time of our OM is not known. There are no physical symptoms suggestive of chorioamnionitis. Given the persistence of nausea PIH labs will be repeated at noon. Continue Pitocin augmentation, advancing per protocol. Patient is uncertain about epidural because she has chronic back problems. Recommend discussion with anesthesia. Epidural may help her more effectively manage pain of induction. I discussed the induction plan with her and she inquired about section. I discussed the advantages and disadvantages/ risks of section in detail. I encouraged her to continue induction and assured her that we will not withhold section if she so desires. Prescription for Zoloft and ranitidine placed in the EMR.
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
[2018-04-18] MEDS: SERTRALINE 50 MG TABLET PO SCH (10:11)
[2018-04-18 12:07] LABS: BASOPHILS % (AUTO) 0.2 %; EOSINOPHILS % (AUTO) 0.3 %; HGB - HEMOGLOBIN 10.4 g/dL (12.0-16.0); LYMPHOCYTES # (AUTO) 1.4 10^3/uL (1.5-3.5); LYMPHOCYTES % (AUTO) 12.2 %; MEAN CORPUSCULAR HGB CONC 34.7 g/dL (32.0-36.0); MEAN CORPUSCULAR VOLUME 86.4 fL (81.0-99.0); MEAN PLATELET VOLUME 7.1 fL (7.9-10.8); MONOCYTES # (AUTO) 0.5 10^3/uL (0.0-1.0); MONOCYTES % (AUTO) 4.4 %; NEUTROPHILS # (AUTO) 9.8 10^3/uL (1.5-6.6); NEUTROPHILS % (AUTO) 82.9 %; PLT - PLATELET COUNT 140 10^3/uL (130-450); RED BLOOD COUNT 3.46 10^6/uL (4.20-5.40); RED CELL DISTRIBUTION WIDTH 15.5 % (12.0-15.0); WHITE BLOOD COUNT 11.9 x10^3/uL (4.8-10.8)
[2018-04-18 12:19] LABS: CREATININE 0.9 mg/dL (0.4-1.0); URIC ACID 7.2 mg/dL (2.6-7.2)
--- NOTE | 2018-04-18 12:39 | PROVIDER PROGRESS NOTE ---
Labor Progress Note - Uterine Monitoring Uterine Monitoring Mode: positive: External toco, Palpation Contraction Frequency (min/apart): Every 3 minutes Contraction Intensity: positive: Moderate (Some strong) Uterine Resting Tone: positive: Soft - Monitoring Monitor Mode: positive: External ultrasound Heart Rate Baseline: 125 Heart Rate Variability: positive: Moderate (6-25 bmp) Accelerations: positive: Present, 15x15 Decelerations: positive: None - Vaginal Exam Dilation (in cm): 4 Effacement (%): 70% Station: 1 Cervical Position: Anterior - Labor Progress Note Labor Progress Note/Additional Text: Pitocin augmentation is affecting cervical change. The descent of the vertex is reassuring. Patient is very uncomfortable and periodically has fentanyl injection. She is considering epidural and will discuss the same with Domingo Lane of anesthesia. Her blood pressure remains labile but responds to periodic labetalol. Hydralazine and mag sulfate are not required as of yet.
[2018-04-18] MEDS: LACTATED RINGERS 1,000 ML IV SCH ×3 (13:22→21:26)
[2018-04-18] MEDS ORDERED: fent/BUPIV 2 MCG/0.125% 250 ML EP ONE (14:01)
[2018-04-18] MEDS ORDERED: LACTATED RINGERS 500 ML IV ONE (14:54)
[2018-04-18] MEDS ORDERED: NALOXONE 0.4 MG/ML VIAL IVP PRN (14:54)
[2018-04-18] MEDS ORDERED: NALBUPHINE 10 MG/ML AMP IVP PRN (14:54)
[2018-04-18] MEDS ORDERED: ONDANSETRON 4 MG/2 ML VIAL IVP PRN (14:54)
[2018-04-18] MEDS ORDERED: ePHEDrine 50 MG/ML VIAL IVP PRN (14:54)
[2018-04-18] MEDS ORDERED: diphenhydrAMINE INJ 50 MG/ML VIAL IVP PRN (14:54)
[2018-04-18] MEDS ORDERED: fent/BUPIV 2 MCG/0.125% 250 ML EP PRN (14:54)
[2018-04-18 16:25] LABS: CREATININE,URINE 73.7 mg/dL; PROTEIN/CREATININE RATIO,URINE 0.1 (<=0.2)
--- NOTE | 2018-04-18 16:53 | PROVIDER PROGRESS NOTE ---
Labor Progress Note - Uterine Monitoring Uterine Monitoring Mode: positive: External toco, Palpation Contraction Frequency (min/apart): q2-3 Contraction Intensity: positive: Moderate - Monitoring Monitor Mode: positive: External ultrasound Heart Rate Baseline: 120 Heart Rate Variability: positive: Moderate (6-25 bmp) Accelerations: positive: Present, 10x10 (=/32 wks) Decelerations: positive: Variable (Isolated) Strip Review: positive: Category I - Vaginal Exam Dilation (in cm): 4 Effacement (%): 100 Station: -1 Cervical Position: Midposition - Labor Progress Note Labor Progress Note/Additional Text: Patient is now comfortable with epidural. We are working to optimize the Pitocin augmentation. EFM tracing remains reassuring. Patient resting. Blood pressure remains controlled with periodic labetalol
[2018-04-18] MEDS ORDERED: ONDANSETRON 4 MG/2 ML VIAL IVP SCH (19:50)
--- NOTE | 2018-04-18 20:15 | PROVIDER PROGRESS NOTE ---
Labor Progress Note - Uterine Monitoring Uterine Monitoring Mode: positive: External toco, Palpation Contraction Intensity: positive: Moderate Uterine Resting Tone: positive: Soft - Monitoring Monitor Mode: positive: External ultrasound Heart Rate Baseline: 120 Heart Rate Variability: positive: Moderate (6-25 bmp) Accelerations: positive: Present, 15x15 Decelerations: positive: Variable Strip Review: positive: Category II - Vaginal Exam Dilation (in cm): 8 Effacement (%): 100% Station: 0 Cervical Position: Anterior - Labor Progress Note Labor Progress Note/Additional Text: Patient reports a mild headache but no visual field disturbances. Physical examination finds no epigastric tenderness and reflexes are essentially normal. Overall continue present management and expect patient to become complete soon
[2018-04-18] MEDS ORDERED: miSOPROStol 200 MCG TABLET ONE (20:17)
[2018-04-18] MEDS ORDERED: MINERAL OIL LIGHT 10 ML MC ONE (20:17)
[2018-04-18] MEDS ORDERED: TERBUTALINE 1 MG/ML VIAL SUBQ ONE (21:32)
[2018-04-18 23:47] LABS: CREATININE,URINE 157.3 mg/dL; PROTEIN/CREATININE RATIO,URINE 0.7 (<=0.2)
--- NOTE | 2018-04-19 00:56 | PROVIDER PROGRESS NOTE ---
Labor Progress Note - Uterine Monitoring Uterine Monitoring Mode: positive: External toco, IUPC Contraction Frequency (min/apart): q 2.5 - 3.3 Contraction Intensity: positive: Moderate Uterine Resting Tone: positive: Soft - Monitoring Monitor Mode: positive: External ultrasound, Spiral electrode Heart Rate Baseline: 120-130 Heart Rate Variability: positive: Moderate (6-25 bmp) Accelerations: positive: Present, 15x15 Decelerations: positive: Late (Rare lates), Variable (Repetitive variables down to the 80s) Strip Review: positive: Category II - Vaginal Exam Dilation (in cm): 8 Effacement (%): 1005 Station: 0 Cervical Position: Anterior - Labor Progress Note Labor Progress Note/Additional Text: Around 9 PM I was alerted that the tracing was difficult to follow and scalp lead was needed. At 2115 hrs. I ruptured the amniotic membranes and inserted iIUPCPC and scalp lead. There were series to deep variable decelerations afterwords. In my exam I felt for cord but none could was present. We turned off the Pitocin, gave terbutaline 0.25 subcu, fluid bolus and administered oxygen. We tried numerous positions (left lateral, right lateral, knees/chest post) and the D cells abated as contractions ceased. Patient and fetus were allowed to rest.
--- NOTE | 2018-04-19 01:05 | PROVIDER PROGRESS NOTE ---
Subjective - Prog Note Date Prog Note Date: 04/18/18 Prog Note Time: 22:30 - Subjective Pt reports feeling: No change Subjective: Patient's contractions have spaced out and are mild by palpation. The heart tracing has stabilized with a baseline 130s and moderate variability with rare mild variable decelerations. We discussed future plan for delivery including section versus a second trial of labor. Both options were discussed discussed including their relative advantages and risk. Patient has chosen to proceed with another trial of labor with Pitocin with the understanding that it could precipitate the need for immediate section. Objective - Vital Signs/Intake & Output Intake & Output: Intake & Output 04/16/18 04/17/18 04/18/18 04/19/18 23:59 23:59 23:59 23:59 Intake Total 4850.0 Output Total 100 1550 Balance -100 3300.0 - Lab Results Fish Bones: 04/18/18 11:56 04/18/18 11:56 Other Labs: Lab Results x24hrs 04/18/18 04/18/18 04/18/18 Range/Units 22:53 15:00 11:56 WBC (4.8-10.8) x10^3/uL RBC (4.20-5.40) 10^6/uL Hgb (12.0-16.0) g/dL Hct (37.0-47.0) % MCV (81.0-99.0) fL MCH (27.0-31.0) pg MCHC (32.0-36.0) g/dL RDW (12.0-15.0) % Plt Count (130-450) 10^3/uL MPV (7.9-10.8) fL Neut # (Auto) (1.5-6.6) 10^3/uL Lymph # (Auto) (1.5-3.5) 10^3/uL [place] # (Auto) (0.0-1.0) 10^3/uL Eos # (Auto) (0.0-0.7) 10^3/uL Baso # (Auto) (0.0-0.1) 10^3/uL Absolute Nucleated RBC x10^3/uL Nucleated RBC % /100WBC Creatinine 0.9 (0.4-1.0) mg/dL Estimated GFR (MDRD) 71 L (>89) Uric Acid 7.2 (2.6-7.2) mg/dL AST 19 (10-42) IU/L Lactate Dehydrogenase (91-225) IU/L Urine Creatinine 157.3 73.7 mg/dL Ur Total Protein Timed 104 9 mg/dL Protein/Creatinin Ratio 0.7 H 0.1 (<=0.2) 04/18/18 04/18/18 Range/Units 11:56 11:56 WBC 11.9 H (4.8-10.8) x10^3/uL RBC 3.46 L (4.20-5.40) 10^6/uL Hgb 10.4 L (12.0-16.0) g/dL Hct 29.9 L (37.0-47.0) % MCV 86.4 (81.0-99.0) fL MCH 30.0 (27.0-31.0) pg MCHC 34.7 (32.0-36.0) g/dL RDW 15.5 H (12.0-15.0) % Plt Count 140 (130-450) 10^3/uL MPV 7.1 L (7.9-10.8) fL Neut # (Auto) 9.8 H (1.5-6.6) 10^3/uL Lymph # (Auto) 1.4 L (1.5-3.5) 10^3/uL [place] # (Auto) 0.5 (0.0-1.0) 10^3/uL Eos # (Auto) 0.0 (0.0-0.7) 10^3/uL Baso # (Auto) 0.0 (0.0-0.1) 10^3/uL Absolute Nucleated RBC 0.01 x10^3/uL Nucleated RBC % 0.1 /100WBC Creatinine (0.4-1.0) mg/dL Estimated GFR (MDRD) (>89) Uric Acid (2.6-7.2) mg/dL AST (10-42) IU/L Lactate Dehydrogenase 157 (91-225) IU/L Urine Creatinine mg/dL Ur Total Protein Timed mg/dL Protein/Creatinin Ratio (<=0.2)
[2018-04-19] MEDS: LABETALOL 100 MG TABLET PO SCH (01:07)
[2018-04-19 01:13] LABS: BASOPHILS # (AUTO) 0.1 10^3/uL (0.0-0.1); BASOPHILS % (AUTO) 0.3 %; HGB - HEMOGLOBIN 9.5 g/dL (12.0-16.0); LYMPHOCYTES % (AUTO) 5.4 %; MEAN CORPUSCULAR HEMOGLOBIN 29.4 pg (27.0-31.0); MEAN CORPUSCULAR HGB CONC 33.8 g/dL (32.0-36.0); MEAN PLATELET VOLUME 7.3 fL (7.9-10.8); MONOCYTES # (AUTO) 0.9 10^3/uL (0.0-1.0); MONOCYTES % (AUTO) 4.9 %; NEUTROPHILS # (AUTO) 15.9 10^3/uL (1.5-6.6); NEUTROPHILS % (AUTO) 89.4 %; PLT - PLATELET COUNT 146 10^3/uL (130-450); RED BLOOD COUNT 3.23 10^6/uL (4.20-5.40); RED CELL DISTRIBUTION WIDTH 15.5 % (12.0-15.0); WHITE BLOOD COUNT 17.8 x10^3/uL (4.8-10.8)
[2018-04-19 01:24] LABS: CREATININE 1.3 mg/dL (0.4-1.0); URIC ACID 7.4 mg/dL (2.6-7.2)
[2018-04-19 01:50] LABS: BILIRUBIN,URINE NEGATIVE (NEGATIVE); GLUCOSE, URINE (UA) NEGATIVE (NEGATIVE); KETONES,URINE (UA) NEGATIVE (NEGATIVE); LEUKOCYTE ESTERASE, URINE MODERATE (NEGATIVE); NITRITE,URINE NEGATIVE (NEGATIVE); OCCULT BLOOD,URINE LARGE (NEGATIVE); PROTEIN,URINE TRACE mg/dL (NEGATIVE); UROBILINOGEN,URINE 0.2 (NORMAL) E.U./dL (NORMAL)
[2018-04-19 01:51] LABS: CLARITY,URINE CLEAR (CLEAR)
[2018-04-19 01:57] LABS: BACTERIA,URINE Rare /HPF (None Seen); SQUAMOUS EPITHELIAL CELL,UR RARE Squamous (<= Few)
--- NOTE | 2018-04-19 04:03 | PROVIDER PROGRESS NOTE ---
Labor Progress Note - Uterine Monitoring Uterine Monitoring Mode: positive: IUPC Contraction Frequency (min/apart): q6-7 Contraction Intensity: positive: Moderate Uterine Resting Tone: positive: Soft - Monitoring Monitor Mode: positive: Spiral electrode Heart Rate Baseline: 140 Heart Rate Variability: positive: Moderate (6-25 bmp) Accelerations: positive: Present, 15x15 Decelerations: positive: Early, Variable - Vaginal Exam Dilation (in cm): 8 Effacement (%): 90% Station: 0 Cervical Position: Anterior - Labor Progress Note Labor Progress Note/Additional Text: Cervical dilation remains fixed at 8 cm withut descent below 0 station. IUPC documents inadequate contractions however it is doubtful that the fetus will tolerate a stronger and more frequent contraction pattern. Preeclampsia Is progressing and labs show increasing maternal urine creatinine. Overall it is doubtful that a vaginal delivery is possible; therefore, section offers the best option. Discussed section with the patient and she consents.
[2018-04-19] MEDS ORDERED: CITRIC ACID/SODIUM CITRATE 15 ML UDC PO SCH (04:10)
[2018-04-19] MEDS ORDERED: CLINDAMYCIN INJ 900 MG in SODIUM CHLORIDE 0.9% 50 ML IV SCH (04:30)
[2018-04-19] MEDS ORDERED: metroNIDAZOLE 500 MG/100 ML 500 MG/100 ML BAG IV SCH (04:30)
[2018-04-19] MEDS ORDERED: LACTATED RINGERS 400 ML IV ONE (04:52)
[2018-04-19] MEDS ORDERED: ZOLPIDEM 5 MG TABLET PO PRN (04:52)
[2018-04-19] MEDS ORDERED: CLINDAMYCIN 300 MG/2 ML VIAL ONE (04:59)
[2018-04-19] MEDS ORDERED: SODIUM CHLORIDE 0.9% 50 ML IV ONE (05:09)
[2018-04-19] MEDS ORDERED: LACTATED RINGERS 1,000 ML IV ONE ×2 (05:19→06:18)
[2018-04-19] MEDS ORDERED: DEXAMETHASONE 4 MG/ML VIAL IVP ONE (06:00)
[2018-04-19] MEDS ORDERED: LIDOCAINE-MPF 2% 5 ML VIAL IM ONE (06:00)
[2018-04-19] MEDS ORDERED: ONDANSETRON 4 MG/2 ML VIAL IVP ONE (06:00)
[2018-04-19] MEDS ORDERED: CLINDAMYCIN 300 MG/2 ML VIAL IV ONE (06:00)
[2018-04-19] MEDS ORDERED: metroNIDAZOLE 500 PREMIX IV ONE (06:00)
[2018-04-19] MEDS ORDERED: CARBOPROST TROMETHAMINE 250 MCG/ML AMP IM ONE (06:00)
[2018-04-19] MEDS ORDERED: OXYTOCIN 10 UNIT/ML VIAL IV ONE (06:00)
[2018-04-19] MEDS ORDERED: ePHEDrine 50 MG/ML AMP IVP ONE (06:00)
[2018-04-19] MEDS ORDERED: SODIUM CHLORIDE FLUSH 0.9% 10 ML SYRINGE ONE (06:17)
[2018-04-19] MEDS ORDERED: ACETAMINOPHEN 1,000 MG/100 ML 100 ML IV ONE (07:54)
--- NOTE | 2018-04-19 08:30 | OPERATIVE REPORT ---
Operative Report - General Admit Date: 04/17/18 Planned Procedure: Primary lower segment transverse section Pre-Op Diagnosis: Failure to progress; gestational hypertension Procedure Performed: Primary lower segment transverse section with T extension; Repair of unintentional cystotomy, ligation of anterior uterine varicosities; adhesiolysis Post Op Diagnosis: Difficult section requiring T extension - Procedure Note Primary Surgeon: Elmer Quan MD,FACOG Secondary Surgeon: Sonia Pickett, certified nurse salt grinder Anesthesia Provider: Denzel Duff certified nurse party plan sales host/hostess Anesthesia Technique: Epidural Pathology: Placenta sent to pathology IV Fluids (mL): 2,200 Estimated Blood Loss (mL): 1,200 (Possibly as high as 1500) Urine Output (mL): 130 (Blood-tinged) Drain/Tube Type: Other (Schmid) Complications: unintentional bladder entry; atony & postoperative anemia: gestational HTN - Other Other Information/Narrative: Depressed living male infant weighing 2708 g (5 pounds 15.5 ounces) low Apgars reference Dr. Jones's evaluation. Cord gases and cord blood sent
[2018-04-19] MEDS ORDERED: IBUPROFEN 600 MG TABLET PO SCH (09:00)
[2018-04-19] MEDS: LACTATED RINGERS 1,000 ML IV SCH ×2 (09:03→20:08)
[2018-04-19] MEDS: oxyCODONE 5 MG TABLET PO PRN ×4 (10:03→21:33)
[2018-04-19] MEDS ORDERED: MEPERIDINE 50 MG/ML VIAL IVP ONE (11:36)
[2018-04-19] MEDS ORDERED: MORPHINE 2 MG/ML CARPUJECT IVP ONE (11:36)
[2018-04-19] MEDS: SODIUM CHLORIDE FLUSH 0.9% 10 ML SYRINGE IVP PRN ×3 (12:26→17:20)
[2018-04-19 13:11] LABS: BASOPHILS % (AUTO) 0.2 %; HGB - HEMOGLOBIN 8.9 g/dL (12.0-16.0); LYMPHOCYTES # (AUTO) 0.8 10^3/uL (1.5-3.5); LYMPHOCYTES % (AUTO) 4.6 %; MEAN CORPUSCULAR HEMOGLOBIN 29.8 pg (27.0-31.0); MEAN CORPUSCULAR HGB CONC 34.2 g/dL (32.0-36.0); MEAN CORPUSCULAR VOLUME 87.2 fL (81.0-99.0); MEAN PLATELET VOLUME 7.3 fL (7.9-10.8); MONOCYTES # (AUTO) 0.6 10^3/uL (0.0-1.0); MONOCYTES % (AUTO) 3.2 %; NEUTROPHILS # (AUTO) 16.2 10^3/uL (1.5-6.6); PLT - PLATELET COUNT 120 10^3/uL (130-450); RED BLOOD COUNT 2.99 10^6/uL (4.20-5.40); RED CELL DISTRIBUTION WIDTH 14.8 % (12.0-15.0); WHITE BLOOD COUNT 17.6 x10^3/uL (4.8-10.8)
[2018-04-19] MEDS: metroNIDAZOLE 500 MG/100 ML 500 MG/100 ML BAG IV SCH ×2 (13:21→22:45)
[2018-04-19 13:27] LABS: ALBUMIN 1.9 g/dL (3.2-5.5); ALBUMIN/GLOBULIN RATIO 0.8 (1.0-2.2); ALKALINE PHOSPHATASE 174 IU/L (42-121); ALT ALANINE AMINOTRANSFERASE < 10 IU/L (10-60); AST ASPARTATE AMINOTRANSFERASE 31 IU/L (10-42); BILIRUBIN,TOTAL 0.7 mg/dL (0.2-1.0); BUN - BLOOD UREA NITROGEN 16 mg/dL (6-20); CARBON DIOXIDE - CO2 19 mmol/L (21-32); CHLORIDE 103 mmol/L (101-111); CREATININE 1.4 mg/dL (0.4-1.0); GFR - MDRD 43 (>89); GLUCOSE 151 mg/dL (70-100); SODIUM 129 mmol/L (135-145); TOTAL PROTEIN 4.4 g/dL (6.7-8.2)
[2018-04-19] MEDS: SERTRALINE 50 MG TABLET PO SCH (13:35)
[2018-04-19] MEDS: CLINDAMYCIN 900 MG/50 ML 50 ML IV SCH (16:00)
[2018-04-19] MEDS: ACETAMINOPHEN 1,000 MG/100 ML 100 ML IV SCH (16:38)
[2018-04-19] MEDS: HYDROmorphone 0.5 MG/0.5 ML SYRINGE IVP PRN (20:40)
[2018-04-19] MEDS: SODIUM CHLORIDE FLUSH 0.9% 10 ML SYRINGE IVP SCH (21:23)
[2018-04-20] MEDS: CLINDAMYCIN 900 MG/50 ML 50 ML IV SCH ×2 (00:47→16:46)
[2018-04-20 01:05] LABS: CALCIUM 7.3 mg/dL (8.5-10.3); CREATININE 1.3 mg/dL (0.4-1.0)
[2018-04-20 01:44] LABS: BASOPHILS % (AUTO) 0.2 %; EOSINOPHILS % (AUTO) 0.1 %; HGB - HEMOGLOBIN 7.5 g/dL (12.0-16.0); LYMPHOCYTES # (AUTO) 1.5 10^3/uL (1.5-3.5); LYMPHOCYTES % (AUTO) 9.3 %; MEAN CORPUSCULAR HEMOGLOBIN 29.4 pg (27.0-31.0); MEAN CORPUSCULAR VOLUME 86.5 fL (81.0-99.0); MEAN PLATELET VOLUME 7.4 fL (7.9-10.8); MONOCYTES # (AUTO) 0.8 10^3/uL (0.0-1.0); MONOCYTES % (AUTO) 4.7 %; NEUTROPHILS % (AUTO) 85.7 %; PLT - PLATELET COUNT 131 10^3/uL (130-450); RED BLOOD COUNT 2.56 10^6/uL (4.20-5.40); RED CELL DISTRIBUTION WIDTH 14.8 % (12.0-15.0); WHITE BLOOD COUNT 16.4 x10^3/uL (4.8-10.8)
[2018-04-20] MEDS: ACETAMINOPHEN 1,000 MG/100 ML 100 ML IV SCH ×2 (01:50→07:44)
[2018-04-20] MEDS: oxyCODONE 5 MG TABLET PO PRN ×5 (01:55→23:55)
--- NOTE | 2018-04-20 02:38 | OPERATIVE REPORT ---
DATE OF SERVICE: 04/19/2018 Physician: Elmer Quan MD PREOPERATIVE DIAGNOSES: 1. Failure to progress. 2. Gestational hypertension. 3. Failed induction. 4. Advanced maternal age POSTOPERATIVE DIAGNOSES: 1. Persistent occiput posterior. 2. Difficult section requiring T extension. 3. Foul-smelling vaginal discharge and fluid. 4. Advanced maternal age. 5. Failure to progress. 6. Gestational hypertension, 7. Failed induction. PROCEDURE: 1. Primary lower segment transverse section with T extension. 2. Repair of unintentional cystotomy. 3. Ligation of anterior uterine varicosities. 4. Adhesiolysis. SURGEON: Elmer Quan, FACOG. MERCHANDISING TEAM LEAD: Sonia Pickett, certified nurse site acquisition specialist. ANESTHESIA PROVIDER: Denzel Duff, certified nurse garden implement mechanic. SENIOR UI SOFTWARE ENGINEER: Francis Padilla MD, Pediatrics ANESTHESIA TECHNIQUE: Epidural. COMPLICATIONS: 1. Unintentional bladder entry. 2. Postoperative anemia. 3. Gestational hypertension with worsening maternal renal function. ESTIMATED BLOOD LOSS: 1200cc (possibly as high as 1500cc). URINE OUTPUT: 130cc, blood tinged. IV FLUIDS: 2200cc. DRAINS: Schmid catheter, functional, draining blood-tinged urine. FINDINGS: Incision time was 0511 with final time 0528. A living male weighing 2708 grams (5 pounds 15.5 ounces) was delivered with depressed Apgars: 0, 1min / 3, 5min / 6, 10 min/ 7, 15min / 9, 20 min. Cord blood and cord gases sent. Arterial cord pH 7.19, Venous cord Ph 7.15, base excess pending. . At the time of , the fetus was in an occiput posterior position and fairly impacted in the pelvis. There was no cord entanglement or cord prolapse to explain the previous variable decelerations. The fluid had a pungent smell and later, after undraping, foul vaginal discharge/fluid was discovered. Both tubes are fluffy and open. Both ovaries appeared to be normal. The uterus has no evident uterine myomas or intracavitary defects. The intentional T extension spanned approximately 5 cm vertically. There were smaller extensions at the lateral margins of the hysterotomy that extended down 2-3 cm. There were lower segment adhesions and the bladder was high in relationship to uterine anatomy. Just left of the midline, there were numerous large varicosities (3-5 mm) in diameter each spreading out from a hemangioma that extended into the hysterotomy wound. There was a 2 cm cystostomy in the dome of the bladder. This was closed in a double-layer fashion and post closure, the bladder did hold urine with the Schmid functional. TECHNIQUE: In the patient's room, a loading dose of anesthetic was instilled in her epidural by Red Duff CRNA. She was brought to the operating room and placed on the table in the supine position. Schmid was already in place and functional. She was prepped and draped in the customary sterile fashion. Timeout briefing was done per protocol. We confirmed good anesthesia through the level of T10. A Pfannenstiel incision was begun approximately 3 cm above the symphysis. Due to the preeclampsia and elevated blood pressure, there were multiple small vessels in the subcutaneous tissue that required hemostat and electrocautery. The fascia was opened uneventfully with a span of at + 10 cm. In the preperitoneal space, there were multiple varicosities. High in the wound, an area was identified for the for peritoneal entry. I dissected through a pad of preperitoneal fat and grasped the membranes with forceps. Sharp entry was made and the fluid that returned seemed to be urine. Draw Hand placed his finger inside of the wound and a Schmid bulb was palpable. We went to the very apex of the abdominal opening, identified area of peritoneum, placed it on traction and opened it to discover we were above the bladder, but the bladder was higher than thought with adhesions matting it to a portion of the uterus and bladder to the abdominal wall. The abdominal wound was then widened with traction. Dissection downward liberated the bladder and advanced it inferiorly. Hysterotomy was made with a scalpel in a curvilinear fashion. Amniotic cavity was entered bluntly with a hemostat. The hysterotomy wound was widened with gentle finger traction. Draw Hand inserted his right hand to secure the vertex, but it was fairly impacted. A nurse was then called to place superior pressure on the head for disimpaction. There was foul/pungent-smelling amniotic fluid. The head could not be negotiated through the hysterotomy; and therefore, a T vertical incision was chosen. First, a 2-cm vertical T was cut in the midline using Shepard scissors. The head still remained difficult to deliver. This incision was extended another 3 cm. Extension enabled delivery of the head through the hysterotomy. Shoulders were atraumatically delivered. Cord was doubly clamped and transected. was handed directly to Dr. Jones. The infant was floppy and obviously depressed, but there was no evident trauma or congenital anomalies. Cord blood and cord gases were sent. The uterus was exteriorized with slight vertical traction. The limits of the wounds were demarcated with ring forceps. With fundal massage, the placenta was expressed intact and sent to pathology to rule out chorioamnionitis. The uterus remained atonic despite Pitocin drip therefore an IM dose of Hemabate 250 mcg was given. With the uterus on traction & Hemobate, bleeding was controlled. The series of 3-4 superficial varicosities on the uterine myometrium were closed with 3 interrupted sutures of 0 Vicryl. First, we closed the 2 lateral inferior extensions with running sutures of 2-0 Vicryl. This area was examined and found to be hemostatically secure. Next, the T extension incision was closed in 2 layers with first 2-0 Vicryl, but the tissue was so gelatinous that we reverted to 0 chromic. Closure was done in 2 layers. It was deemed hemostatically secure. Next, the transverse hysterotomy wound was closed in 2 layers with 0 Vicryl, first in an interlocked stitch, followed by an imbricating layer. The void between the bladder and uterus was explored for bleeding or any other damage to the bladder. Cystotomy repair was done in 2 layers. First, there was a short running nonlocking stitch for about 0.5 cm. Next, the mucosa was reopposed with numerous interrupted stitches of 3-0 Vicryl. Next, the bladder had a second imbricating layer of interrupted stitches of 3- 0 Vicryl. Schmid was already pulled into the bladder cavity. The abdominal peritoneum was not closed. Four interrupted stitches of 0 Vicryl were used to reoppose the rectus muscle. The fascia was closed in 2 parts with a running stitch of 0 Vicryl. The deep space was closed with multiple interrupted stitches of 2-0 chromic. Skin was closed with a running subcuticular stitch of 4-0 Monocryl. There was sufficient laxity in subcuticular stitch to allow seepage of fluids once the wound VAC was applied. Next, the area was cleaned and spray adhesive applied to the skin surrounding the wound. The wound VAC was then placed over the wound, creating a good seal. Wound VAC was confirmed as functional prior to leaving the OR. All operative sites were reinspected. The abdomen was lavaged with warm normal saline. The uterus was placed back into the abdominal cavity. Final inspection confirmed that there was no postop bleeding. All sponge, needle and instrument counts were confirmed as correct. The patient was given prophylactic Cleocin and Flagyl. However, due to the foul -smelling fluid, we will continue these antibiotics. She will be brought to the floor and continued on labetalol and watched closely for evolving PIH. Additionally, special attention will be on her renal function, urine output and serum creatinines. Due to anemia secondary to blood loss, transfusion of 2 units of packed red blood cells is planned. TD: 04/19/2018 16:25 ARISTIDES
[2018-04-20] MEDS: LACTATED RINGERS 1,000 ML IV SCH ×2 (05:02→20:29)
[2018-04-20] MEDS: metroNIDAZOLE 500 MG/100 ML 500 MG/100 ML BAG IV SCH ×2 (06:39→18:16)
[2018-04-20] MEDS ORDERED: diphenhydrAMINE 25 MG CAPSULE PO SCH (07:00)
[2018-04-20] MEDS: SODIUM CHLORIDE FLUSH 0.9% 10 ML SYRINGE IVP SCH (07:44)
[2018-04-20] MEDS: LABETALOL 100 MG TABLET PO SCH ×3 (08:08→19:56)
[2018-04-20] MEDS: SODIUM CHLORIDE FLUSH 0.9% 10 ML SYRINGE IVP PRN ×7 (08:08→18:16)
--- NOTE | 2018-04-20 08:29 | PROVIDER PROGRESS NOTE ---
Subjective - General Admit Date: 04/17/18 Procedure Date: 04/19/18 Post Op Days: 1 Procedure Performed: Primary section with T-type incision - Review of Systems Wound/Incisions: positive: Other (Wound VAC in place) Drain Type: Schmid Drain Output Description: Blood-tinged urine General: positive: Fatigue HEENT: positive: No symptoms Pulmonary: positive: No symptoms Cardiovascular: positive: No symptoms Gastrointestinal: positive: Abdominal pain (Appropriate for laparotomy; Dilaudid tolerated), Other (No bowel movement) Genitourinary: positive: Other (Schmid in place and functional) Musculoskeletal: positive: No symptoms Skin: positive: No symptoms Psychiatric: positive: Anxiety Objective - Patient Data Vital Signs: Vital Signs x48h Temp Pulse Resp BP Pulse Ox 04/20/18 06:30 93 04/20/18 06:10 97.7 F 109 H 20 129/81 H 90 L 04/20/18 03:58 97.9 F 103 H 12 109/74 95 04/20/18 01:53 97.7 F 99 16 120/76 96 Intake & Output: Intake and Output Totals x24h 04/18/18 04/19/18 04/20/18 23:59 23:59 23:59 Intake Total 4850.0 3150 990 Output Total 1682 1115 1300 Balance 3168.0 2035 -310 - Lab Results Lab Results: 04/20/18 01:38 04/20/18 00:36 Other Lab Results: Lab Results x24hrs 04/20/18 04/20/18 04/19/18 Range/Units 01:38 00:36 12:58 WBC 16.4 H (4.8-10.8) x10^3/uL RBC 2.56 L (4.20-5.40) 10^6/uL Hgb 7.5 L (12.0-16.0) g/dL Hct 22.2 L (37.0-47.0) % MCV 86.5 (81.0-99.0) fL MCH 29.4 (27.0-31.0) pg MCHC 34.0 (32.0-36.0) g/dL RDW 14.8 (12.0-15.0) % Plt Count 131 (130-450) 10^3/uL MPV 7.4 L (7.9-10.8) fL Neut # (Auto) 14.0 H (1.5-6.6) 10^3/uL Lymph # (Auto) 1.5 (1.5-3.5) 10^3/uL [place] # (Auto) 0.8 (0.0-1.0) 10^3/uL Eos # (Auto) 0.0 (0.0-0.7) 10^3/uL Baso # (Auto) 0.0 (0.0-0.1) 10^3/uL Absolute Nucleated RBC 0.00 x10^3/uL Nucleated RBC % 0.0 /100WBC Sodium 134 L 129 L (135-145) mmol/L Potassium 4.0 4.1 (3.5-5.0) mmol/L Chloride 107 103 (101-111) mmol/L Carbon Dioxide 23 19 L (21-32) mmol/L Anion Gap 4.0 L 7.0 (6-13) BUN 19 16 (6-20) mg/dL Creatinine 1.3 H 1.4 H (0.4-1.0) mg/dL Estimated GFR (MDRD) 47 L 43 L (>89) Glucose 117 H 151 H (70-100) mg/dL Calcium 7.3 L 7.0 L (8.5-10.3) mg/dL Total Bilirubin 0.7 (0.2-1.0) mg/dL AST 31 (10-42) IU/L ALT < 10 L (10-60) IU/L Alkaline Phosphatase 174 H (42-121) IU/L Total Protein 4.4 L (6.7-8.2) g/dL Albumin 1.9 L (3.2-5.5) g/dL Globulin 2.5 (2.1-4.2) g/dL Albumin/Globulin Ratio 0.8 L (1.0-2.2) Blood Type Antibody Screen Crossmatch IS Only 04/19/18 04/17/18 04/17/18 Range/Units 12:58 21:55 21:55 WBC 17.6 H (4.8-10.8) x10^3/uL RBC 2.99 L (4.20-5.40) 10^6/uL Hgb 8.9 L (12.0-16.0) g/dL Hct 26.0 L (37.0-47.0) % MCV 87.2 (81.0-99.0) fL MCH 29.8 (27.0-31.0) pg MCHC 34.2 (32.0-36.0) g/dL RDW 14.8 (12.0-15.0) % Plt Count 120 L (130-450) 10^3/uL MPV 7.3 L (7.9-10.8) fL Neut # (Auto) 16.2 H (1.5-6.6) 10^3/uL Lymph # (Auto) 0.8 L (1.5-3.5) 10^3/uL [place] # (Auto) 0.6 (0.0-1.0) 10^3/uL Eos # (Auto) 0.0 (0.0-0.7) 10^3/uL Baso # (Auto) 0.0 (0.0-0.1) 10^3/uL Absolute Nucleated RBC 0.00 x10^3/uL Nucleated RBC % 0.0 /100WBC Sodium (135-145) mmol/L Potassium (3.5-5.0) mmol/L Chloride (101-111) mmol/L Carbon Dioxide (21-32) mmol/L Anion Gap (6-13) BUN (6-20) mg/dL Creatinine (0.4-1.0) mg/dL Estimated GFR (MDRD) (>89) Glucose (70-100) mg/dL Calcium (8.5-10.3) mg/dL Total Bilirubin (0.2-1.0) mg/dL AST (10-42) IU/L ALT (10-60) IU/L Alkaline Phosphatase (42-121) IU/L Total Protein (6.7-8.2) g/dL Albumin (3.2-5.5) g/dL Globulin (2.1-4.2) g/dL Albumin/Globulin Ratio (1.0-2.2) Blood Type Cancelled A POSITIVE Antibody Screen Cancelled NEGATIVE Crossmatch IS Only See Detail See Detail - Current Medications Current Medications: Current Medications Generic Name Dose Route Start Last Admin Trade Name Freq PRN Reason Stop Dose Admin Diphenhydramine HCl 12.5 - 25 mg 04/18/18 14:54 04/19/18 16:37 Benadryl Inj IVP 12.5 mg Q6HR PRN Administration ITCHING Diphenhydramine HCl 50 mg 04/20/18 07:00 04/20/18 07:01 Benadryl PO 04/20/18 20:00 50 mg ONCE JACOB Administration Fentanyl 50 mcg 04/17/18 20:52 04/18/18 13:33 Fentanyl IVP 50 mcg Q1H PRN Administration PAIN Hydrocortisone 1 applic 04/17/18 22:50 04/18/18 08:03 Hydrocortisone TOP 1 applic QID PRN Administration ITCHING Hydromorphone HCl 0.5 mg 04/19/18 16:34 04/19/18 20:40 Dilaudid Inj Syringe IVP 0.5 mg Q2H PRN Administration PAIN Oxytocin/Sodium Chloride 500 mls @ 1 mls/hr 04/18/18 06:00 04/18/18 06:36 Pitocin/Sodium Chloride IV 1 milliunit/min TITR JACOB 1 mls/hr Protocol Administration 1 MILLIUNIT/MIN Lactated Ringer's 1,000 mls @ 100 mls/hr 04/19/18 05:00 04/20/18 05:02 Lr IV 100 mls/hr .Q10H JACOB Administration Clindamycin Phosphate 50 mls @ 100 mls/hr 04/19/18 14:00 04/20/18 00:47 Cleocin 900 Mg/50 Ml IV 50 mls/hr Q8HR JACOB Administration Metronidazole 500 mg in 100 mls @ 100 mls/hr 04/19/18 12:00 04/20/18 06:39 Flagyl 500 Mg/100 Ml IV 100 mls/hr Q8H JACOB Administration Acetaminophen 100 mls @ 400 mls/hr 04/19/18 17:00 04/20/18 07:44 Ofirmev IV 400 mls/hr Q6H JACOB Administration Labetalol HCl 200 mg 04/17/18 23:00 04/20/18 08:08 Trandate PO 200 mg Q4H JACOB Administration Ondansetron HCl 4 mg 04/17/18 20:52 04/18/18 19:52 Zofran Inj IVP 4 mg Q4H PRN Administration Nausea / Vomiting Oxycodone HCl 5 mg 04/19/18 04:52 04/20/18 06:08 Roxicodone PO 5 mg Q4HR PRN Administration PAIN Ranitidine HCl 150 mg 04/18/18 10:00 04/19/18 21:23 Zantac PO Not Given DAILY JACOB Sertraline HCl 50 mg 04/18/18 10:00 04/19/18 13:35 Zoloft PO 50 mg DAILY JACOB Administration Sodium Chloride 10 ml 04/19/18 04:52 04/20/18 08:08 Normal Saline Flush 0.9% IVP 10 ml PRN PRN Administration NEEDED PER PROVIDER ORDERS Sodium Chloride 10 ml 04/19/18 09:00 04/20/18 07:44 Normal Saline Flush 0.9% IVP 10 ml 0100,0900,1700 JACOB Administration Physical Exam - Physical Exam General Appearance: no apparent distress (Anxiety present) Eyes, Ears, Nose, Throat Exam: PERRL/EOMI, pale conjunctivae (L) Cardiovascular/Respiratory: regular rate, rhythm, murmur Gastrointestinal/Abdominal: Other (Reduced bowel sounds) Pelvic Exam: other (Non-foul lochia rubra, reported) Neurologic: roasterman II-XII nml as tested, no motor/sensory deficits, alert Skin Exam: pallor Assessment/Plan - Assessment/Plan Assessment: Patient remains anemia and hemoglobin equilibrated downward as expected last night. Patient would benefit with transfusion and discussed risk and benefits with her. We discussed the condition and the baby as reported by neonatology last night.. She will probably require another overnight supportive care and monitoring. Plan: Transfused 2 units of packed red blood cells; pretransfusion Ativan and Benadryl; continued supportive care; labetalol as ordered however if blood pressures are below 120/60 dose
[2018-04-20] MEDS ORDERED: LORazepam 2 MG/ML VIAL IVP PRN (08:32)
[2018-04-20] MEDS ORDERED: SODIUM CHLORIDE 0.9% 1,000 ML IV ONE (08:39)
[2018-04-20] MEDS: SERTRALINE 50 MG TABLET PO SCH (08:46)
[2018-04-20] MEDS: HYDROmorphone 0.5 MG/0.5 ML SYRINGE IVP PRN ×2 (08:47→18:16)
[2018-04-20] MEDS ORDERED: LIDOCAINE 1% 50 ML MDV ONE (10:20)
[2018-04-20] MEDS: ACETAMINOPHEN 500 MG TABLET PO SCH ×2 (16:47→22:59)
[2018-04-20] MEDS: HYDROCORTISONE 1% CREAM 28 GM TUBE TOP PRN (23:56)
[2018-04-21] MEDS: metroNIDAZOLE 500 MG/100 ML 500 MG/100 ML BAG IV SCH ×4 (02:05→21:13)
[2018-04-21] MEDS: CLINDAMYCIN 900 MG/50 ML 50 ML IV SCH ×4 (02:06→21:13)
[2018-04-21] MEDS: LABETALOL 100 MG TABLET PO SCH ×5 (02:17→21:36)
[2018-04-21] MEDS: LACTATED RINGERS 1,000 ML IV SCH ×3 (03:58→21:12)
[2018-04-21] MEDS: oxyCODONE 5 MG TABLET PO PRN ×3 (03:59→20:45)
[2018-04-21 05:39] LABS: CREATININE,URINE 61.5 mg/dL; PROTEIN/CREATININE RATIO,URINE 0.2 (<=0.2)
[2018-04-21] MEDS: ACETAMINOPHEN 500 MG TABLET PO SCH ×4 (05:44→21:28)
[2018-04-21 05:55] LABS: BASOPHILS % (AUTO) 0.3 %; EOSINOPHILS # (AUTO) 0.2 10^3/uL (0.0-0.7); EOSINOPHILS % (AUTO) 1.2 %; HGB - HEMOGLOBIN 8.9 g/dL (12.0-16.0); LYMPHOCYTES # (AUTO) 1.6 10^3/uL (1.5-3.5); LYMPHOCYTES % (AUTO) 11.6 %; MEAN CORPUSCULAR HEMOGLOBIN 29.2 pg (27.0-31.0); MEAN CORPUSCULAR HGB CONC 33.6 g/dL (32.0-36.0); MEAN PLATELET VOLUME 7.1 fL (7.9-10.8); MONOCYTES # (AUTO) 0.5 10^3/uL (0.0-1.0); MONOCYTES % (AUTO) 3.8 %; NEUTROPHILS # (AUTO) 11.4 10^3/uL (1.5-6.6); NEUTROPHILS % (AUTO) 83.1 %; PLT - PLATELET COUNT 161 10^3/uL (130-450); RED BLOOD COUNT 3.06 10^6/uL (4.20-5.40); RED CELL DISTRIBUTION WIDTH 14.6 % (12.0-15.0); WHITE BLOOD COUNT 13.7 x10^3/uL (4.8-10.8)
[2018-04-21 06:03] LABS: CREATININE 0.8 mg/dL (0.4-1.0)
[2018-04-21] MEDS: HYDROmorphone 0.5 MG/0.5 ML SYRINGE IVP PRN (08:45)
[2018-04-21] MEDS: SERTRALINE 50 MG TABLET PO SCH (08:45)
[2018-04-21] MEDS: ALBUTEROL NEB 2.5 MG/3 ML INH SCH ×3 (10:56→19:31)
--- NOTE | 2018-04-21 11:06 | PROVIDER PROGRESS NOTE ---
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 PMH notable for asthma that is made worse during this time of year, uses proventil inhaler usually, has not used her inhaler since admitted 4 days ago. Reports SOB since yesterday afternoon, denies chest pain, has been on O2NC at 2L since yesterday. Does not have to go to ER for breathing treatments. O: O2 Sat on O2 and on RA while breathing deepy 93%, desats down to 85% on RA when not breathing deeply, Pulse 104. CV: RRR Lungs: no crackles, poor respiratly effort, mild wheezing left upper diaz ABD: soft, normal post-op pain., Ux firm U-4, : normal lochia MS/NM: SCDs on A/P: POD #2 s/p Asthma exacerbation: RT breathing treatments q4h x 24 hours, switch over to regular inhaler tomorrow AM. Encouraged ambulation once able to breathe on RA. Will follow, consider other possible etiologies if not improved with breathing treatments. Patient understands condition and all questions answered to her satisfaction. Objective - Vital Signs/Intake & Output Vital Signs: Vital Signs x48h Temp Pulse Resp BP Pulse Ox 04/21/18 08:20 37.1 C 92 18 146/87 H 93 04/21/18 05:39 37.0 C 87 16 146/85 H 93 04/21/18 03:53 36.5 C 86 16 136/81 H 93 Intake & Output: Intake & Output 04/18/18 04/19/18 04/20/18 04/21/18 23:59 23:59 23:59 23:59 Intake Total 4850.0 3150 3940 1398.333 Output Total 1682 1115 4351 425 Balance 3168.0 2035 -411 973.333 - Lab Results Fish Bones: 04/21/18 05:37 04/21/18 05:37 Other Labs: Lab Results x24hrs 04/21/18 04/21/18 04/21/18 Range/Units 05:37 05:37 05:13 WBC 13.7 H (4.8-10.8) x10^3/uL RBC 3.06 L (4.20-5.40) 10^6/uL Hgb 8.9 L (12.0-16.0) g/dL Hct 26.6 L (37.0-47.0) % MCV 87.0 (81.0-99.0) fL MCH 29.2 (27.0-31.0) pg MCHC 33.6 (32.0-36.0) g/dL RDW 14.6 (12.0-15.0) % Plt Count 161 (130-450) 10^3/uL MPV 7.1 L (7.9-10.8) fL Neut # (Auto) 11.4 H (1.5-6.6) 10^3/uL Lymph # (Auto) 1.6 (1.5-3.5) 10^3/uL [place] # (Auto) 0.5 (0.0-1.0) 10^3/uL Eos # (Auto) 0.2 (0.0-0.7) 10^3/uL Baso # (Auto) 0.0 (0.0-0.1) 10^3/uL Absolute Nucleated RBC 0.00 x10^3/uL Nucleated RBC % 0.0 /100WBC Creatinine 0.8 (0.4-1.0) mg/dL Estimated GFR (MDRD) 82 L (>89) Urine Creatinine 61.5 mg/dL Ur Total Protein Timed 11 mg/dL Protein/Creatinin Ratio 0.2 (<=0.2) Blood Type Antibody Screen Crossmatch IS Only 04/17/18 Range/Units 21:55 WBC (4.8-10.8) x10^3/uL RBC (4.20-5.40) 10^6/uL Hgb (12.0-16.0) g/dL Hct (37.0-47.0) % MCV (81.0-99.0) fL MCH (27.0-31.0) pg MCHC (32.0-36.0) g/dL RDW (12.0-15.0) % Plt Count (130-450) 10^3/uL MPV (7.9-10.8) fL Neut # (Auto) (1.5-6.6) 10^3/uL Lymph # (Auto) (1.5-3.5) 10^3/uL [place] # (Auto) (0.0-1.0) 10^3/uL Eos # (Auto) (0.0-0.7) 10^3/uL Baso # (Auto) (0.0-0.1) 10^3/uL Absolute Nucleated RBC x10^3/uL Nucleated RBC % /100WBC Creatinine (0.4-1.0) mg/dL Estimated GFR (MDRD) (>89) Urine Creatinine mg/dL Ur Total Protein Timed mg/dL Protein/Creatinin Ratio (<=0.2) Blood Type Cancelled Antibody Screen Cancelled Crossmatch IS Only See Detail
[2018-04-21] MEDS ORDERED: SODIUM CHLORIDE 0.9% MINIBAG 100 ML IV ONE (11:21)
[2018-04-21] MEDS: SODIUM CHLORIDE FLUSH 0.9% 10 ML SYRINGE IVP SCH ×4 (21:08→21:13)
[2018-04-21] MEDS: OXYTOCIN/SODIUM CHLORIDE 500 ML IV SCH ×2 (21:08→21:11)
[2018-04-22] MEDS: oxyCODONE 5 MG TABLET PO PRN ×4 (00:03→13:29)
[2018-04-22] MEDS: CLINDAMYCIN 900 MG/50 ML 50 ML IV SCH ×2 (00:05→06:05)
[2018-04-22] MEDS: SODIUM CHLORIDE FLUSH 0.9% 10 ML SYRINGE IVP SCH (02:28)
[2018-04-22] MEDS: LACTATED RINGERS 1,000 ML IV SCH (03:19)
[2018-04-22] MEDS: LABETALOL 100 MG TABLET PO SCH ×3 (03:47→15:15)
[2018-04-22] MEDS: ALBUTEROL NEB 2.5 MG/3 ML INH SCH ×3 (04:17→12:01)
[2018-04-22] MEDS: metroNIDAZOLE 500 MG/100 ML 500 MG/100 ML BAG IV SCH (05:24)
[2018-04-22] MEDS: ACETAMINOPHEN 500 MG TABLET PO SCH ×3 (06:05→15:16)
[2018-04-22] MEDS: SERTRALINE 50 MG TABLET PO SCH (09:03)
--- NOTE | 2018-04-22 14:08 | ANESTHESIA POST OP EVALUATION ---
Anesthesia Post Eval - Post Anesthesia Eval CV Function Including HR & BP: positive: Stable Pain Control: positive: Adequate Nausea & Vomiting: positive: Negative Mental Status: positive: Appropriate Anesthesia Complications: positive: None (Late entry, the estimated blood loss during the c section was inadvertently omitted. I estimated the EBL to be between 1619-8076 ml. The variation was approximated to be related to irrigation, amniotic fluid and urine. The Hgb had decreased from 9 to 7 and 2 U of PRBC were ordered intraop.)
[2018-04-22 16:29] VITALS: BP 121/83
--- NOTE | 2018-04-22 22:48 | PROVIDER PROGRESS NOTE ---
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 No other complaints. I reassured patient that this was normal post-operative and delivery changes from , anemia and IVF replacement. She was much relieved and will follow up in clinic in 4 days, sooner prn. Objective - Vital Signs/Intake & Output Vital Signs: Vital Signs x48h Temp Pulse Resp BP Pulse Ox 04/22/18 16:28 36.4 C L 87 19 121/83 H 99 Intake & Output: Intake & Output 04/19/18 04/20/18 04/21/18 04/22/18 23:59 23:59 23:59 23:59 Intake Total 3150 3940 4201.666 Output Total 1115 4351 1476 1250 Balance 2035 -411 2725.666 -1250 - Lab Results Fish Bones: 04/21/18 05:37 04/21/18 05:37
--- NOTE | 2018-04-24 09:11 | DISCHARGE SUMMARY ---
Physician: Elmer Quan MD DATE OF ADMISSION: 04/17/2018 DATE OF DISCHARGE: 04/22/2018 DIAGNOSES 1. A 39-week, 6-day gestation on admission, labor. 2. Gestational hypertension. 3. Advanced maternal age. 4. Depression. 5. History of asthma. 6. Persistent occiput posterior. 7. Failure to progress. 8. Cesarian Delivery of a living male infant with low Apgars. 9. Acute Chorion Amnionitis PROCEDURES 1. Primary lower segment transverse section with vertical T extension. 2. Repair of unintentional cystotomy. 3. Ligation of anterior uterine varicosities. 4. Adhesiolysis. COMPLICATIONS 1. Unintentional bladder entry. 2. Uterine atony with postoperative anemia. 3. Gestational hypertension with worsening maternal renal function. HISTORY: Patient is a 37-year-old, , 3, para 0-0-2-0 woman who [facility] Her EDC was 04/18/2018 determined by 11-week 6-day ultrasound. She reports contractions off and on during Thursday that became more intense on the Thursday, the day of admission. She reports leaking of clear, nonfoul fluid since Thursday, but is not certain whether she is ruptured. She has no fevers, chills or foul discharge to report. She did not have any headache, visual changes or epigastric tenderness. BASIC LABS: Blood type A positive, antibody screen negative, rubella immune, hepatitis B surface antigen negative, HIV negative, Pap smear normal, GC/chlamydia negative , [place] normal with male fetus, one-hour glucose challenge 80 and GBS negative. MEDICATIONS SHE HAD MULTIPLE ALLERGIES INCLUSIVE OF: 1. LATEX. 2. AMOXICILLIN. 3. CODEINE (ITCHING). 4. IODINE. 5. MOLDS. 6. HYDROCODONE (ITCHING). 7. MOST FORMS OF PENICILLIN (HIVES). At the time of admission, she was found to be dilated to 4 cm, 100% effaced and 0 station. ROM Plus confirmed ruptured membranes. There was no epigastric tenderness or brisk reflexes; however, there was moderate finger, pedal and tibial edema. Her blood pressure was elevated 163/99. She had no prior history of hypertension. tracing was category 1 in the 140s with good variability and no decels. Contractions were occurring every 3 minutes to 2.5 minutes. Initial preeclampsia labs: Hemoglobin 10.4 (anemia), white count 11.9, platelets 140. Creatinine 0.9, uric acid 7.2, AST 19. Urine protein negative. Urine protein- creatinine ratio 0.2, normal. HOSPITAL COURSE: Hospital day 1 Patient was admitted, and we began surveillance for gestational hypertension. The patient was diagnosed with gestational hypertension. Her blood pressures remained high. Labetalol 200 mg every 4 hours continuous dosing was begun and B /P stabilized at 130s/80s. Magnesium sulfate was not required. The heart tracing remained category 1 over night but the contractions were not regular. Patient used Jacuzzi bath to relieve back pain. Pitocin drip was begun at 0630 per protocol. Hospital day 2 At 0800 on 04/18/2018, Zoloft and ranitidine were begun, and patient was given periodic doses of fentanyl for pain relief. She feared epidural because of prior back pain. By noon, her fentanyl was not adequate, and a consultation was called with Anesthesia, Domingo Lane. After informed consent, patient accepted epidural at 1428. At that time, cervical exam was 4 cm, 100% effaced and +1 station. EFM Strip was baseline 115-120 and remained category 1. By 1600, patient was still noted to be 4 cm, 100%, -1 station. Pitocin augmentation was already in progress, and strip remained reassuring. Epidural was providing excellent pain relief. By 1999, patient had progressed to 8 cm dilation, but strip changes now included variable decels. Following the fetus was difficult and, so, it was elected to place a scalp lead. At that time, the rupture of membranes was noted to be somewhat incomplete and, so , amniohook completed rupture of membranes, after which an IUPC and scalp lead were placed. Contractions continued with Pitocin augmentation; however, strip changes now included variable decelerations and 1 isolated late. The Pitocin was turned off, and patient was given a dose of terbutaline, as well as IV fluid bolus. It was thought that the problem was secondary to a cord. The cervix was thoroughly examined, and no cord was felt. Patient was positioned and rotated. By 2300, the contractions had spaced, heart tones were steady at 130s, Variable decels. We discussed section versus continuing trial of labor with Pitocin. Patient desired to continue the trial. Hemoglobin was 10.4. Creatinine had risen to 0.9, and platelets were 140. Hospital day 3 / Section Patient's contractions remained every 6-7 minutes, and the variable decelerations that made it difficult to advance the Pitocin to the recommended Alpha units. At 0335, the cervix was checked and found to be 8 cm and the head had not advanced beyond 0. Creatinine began to rise to 1.3. Hemoglobin was 9.5, with platelet count 146. Patient was advised that continued trial of labor would probably be futile and that either the preeclampsia would continue to progress to severe or reserve would deteriorate. After discussion, patient was consented for primary section. The operative team was assembled in anticipation of a 0430 start. Patient was prepared for surgery with a loading dose on her epidural, Bicitra. Patient was brought to the operating room and prepared for surgery. Preoperative prophylaxis with Cleocin and Flagyl was chosen.Initial incision was at 0511. A Pfannenstiel incision was used to open the abdomen. The anatomy was distorted with the bladder high. The initial peritoneal incision resulted in an unintentional cystotomy. There were abdominal adhesions tacking the bladder to the uterus and anterior abdominal wall. The bladder flap was developed to reduce the bladder. A curvilinear lower transverse cystotomy wasthen executed. The Vertex was impacted, and the second nurse provided vaginal pressure to disimpact the head. The transverse incision was widened gently but could not allow delivery of the head. Therefore, the incision was T'd for a distance eventually of 5 cm and the head and shoulders delivered. The fetus was very depressed, with Apgars of 0 at 1 minute /3 at 5 minutes/6 at 10 minutes/7 at 15 minutes/9 at 20 minutes. Cord gases and blood were sent. Initially, arterial cord pH was quoted at 7.19. Dr. Jones was present and managed the resuscitation. There was no cord entanglement to explain the previously-noted variable decelerations. At the time of delivery, the fluid was noted to be foul. Therefore, we continued the initial Cleocin and Flagyl antibiotic coverage post section. The 2 cm cystotomy in the dome of the bladder was uneventfully closed. Schmid will remain in place for 10-14 days. Post delivery, the uterus was atonic and slow to respond to massage. One ampule of Hemabate was given. The uterus was then uneventfully closed. Total blood loss was estimated at 7767-1417. Hemoglobin check interoperative was 7.0 g and transfusion of 2 units packed red blood cells was started immediately post surgery.Reference typewritten operative report. Post delivery, the patient was stable but still required labetalol 200 mg q.6 hours. Pain relief was provided by Dilaudid that had minimal if any side effects and IV Tylenol. The patient began pumping. Jessy Hughes had problems with tone, and Dr. Jones, after consultation, transferred Jessy Hughes to [facility]. On postop day 1, the patient felt fatigued. With periodic Labetalol, her blood pressures remained in the 120s to 130s over 80, with pulse at 109. At 0630 on postop day 1, the patient received a second 2 units of packed red blood cells. On postop day 2, patient had asthmatic symptoms, was evaluated by Dr. Alvares , OB on-call, and begun on hand-held nebulizers. Her blood pressure at that time was running 146 over high 80s. Hemoglobin had stabilized at 8.9, with platelets 161 and white count 13.7. Postop day 3 The patient was evaluated in the morning for perceived increased pedal edema that were normal postoperative and delivery changes. Reference Dr. Alvares's note. [facility] reported acute marked chorion amnionitis. There were no clinical signs of uterine infection Patient was prepared for discharge. She demonstrated basic self-care features and the ability to ambulate. She has chronic problems with dizziness, and the anemia exacerbates. PT evaluated her gait and felt that a front-wheeled walker would be helpful. She was instructed on Schmid catheter management. Leg bag urinary catheter was fitted, and she demonstrated ability to manage this. Social Work was also called into consultation. Coordination was made with [facility] for lodging. It is anticipated that Jessy Christian will stay at least [address] [facility] for evaluation. She was given complete wound care and callback instructions. She will continue the wound VAC over the weekend. FOLLOWUP: Patient will be seen on Thursday morning for wound check and followup at the [facility]. She was instructed to report any fevers, rigors , shortness of breath, abdominal pain, leg swelling or leg pain, or foul discharge. DISCHARGE MEDICATIONS 1. Tylenol 500 2 tabs q.4 hours. 2. Oxycodone 5 mg q.4 hours p.r.n. breakthrough pain. 3. Colace 200 mg oral b.i.d. 4. Lactulose 10 grams p.o. daily. 5. Albuterol inhaler 1-2 puffs q.4 hours p.r.n. 6. vitamins with iron 7. Ferric sulfate 325 oral twice a day TD: 04/23/2018 19:09 MTDD
== END 2018-04-22 16:45 | disposition home or self-care (01) | DRG 765 ==
LOC: WFO 20:01 → FBP 20:06 → WFO 20:51 → FBP 20:52
PROVIDERS: ADMIT Obstetrics & Gynecology; ATTEND Obstetrics & Gynecology
PROC: 10H07YZ Insertion of Other Device into Products of Conception, Via Natural or Artificial Opening (ICD-10-PCS; 2018-04-18)
PROC: 0TQB0ZZ Repair Bladder, Open Approach (ICD-10-PCS; 2018-04-19)
PROC: 10D00Z1 Extraction of Products of Conception, Low, Open Approach (ICD-10-PCS; principal; 2018-04-19 04:34)
PROC: 30233N1 Transfusion of Nonautologous Red Blood Cells into Peripheral Vein, Percutaneous Approach (ICD-10-PCS; 2018-04-20)
DX: O14.04 Mild to moderate pre-eclampsia, complicating childbirth (principal); J45.901 Unspecified asthma with (acute) exacerbation; N99.71 Accidental puncture and laceration of a genitourinary system organ or structure during a genitourinary system procedure; Z37.0 Single live birth; Z3A.39 39 weeks gestation of pregnancy; O99.344 Other mental disorders complicating childbirth; F32.9 Major depressive disorder, single episode, unspecified; F41.9 Anxiety disorder, unspecified; O64.0XX0 Obstructed labor due to incomplete rotation of fetal head, not applicable or unspecified; O75.89 Other specified complications of labor and delivery; O90.81 Anemia of the puerperium; D64.9 Anemia, unspecified; O76 Abnormality in fetal heart rate and rhythm complicating labor and delivery; O61.0 Failed medical induction of labor; O99.89 Other specified diseases and conditions complicating pregnancy, childbirth and the puerperium; N73.6 Female pelvic peritoneal adhesions (postinfective); O99.52 Diseases of the respiratory system complicating childbirth; R42 Dizziness and giddiness; O99.42 Diseases of the circulatory system complicating childbirth; I86.8 Varicose veins of other specified sites; Z79.899 Other long term (current) drug therapy
CPT/HCPCS: 36415; 51701; 80048; 80053; 81001; 81003; 82565; 82570; 83615; 84112; 84156; 84450; 84550; 85014; 85018; 85025; 86850; 86900; 86901; 86920; 87086; 88307; 94640; 99212; 99214

== ENCOUNTER 2018-04-23 00:19 | Emergency (ER) | payer MEDICAID ==
[2018-04-23 00:29] VITALS: BP 137/70
[2018-04-23] MEDS ORDERED: diphenhydrAMINE 25 MG CAPSULE PO STA (00:52)
--- NOTE | 2018-04-23 00:56 | ED Physician Documentation ---
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 patient was discharged yesterday. Patient is presenting today because she felt like she urinated around her renner catheter. She also has a rash on her stomach secondary to the adhesives. Patient didn't know if she could take benadryl for it or not. Review of Systems Ten Systems: 10 systems reviewed and negative : reports: Incontinent Skin: reports: Rash PD PAST MEDICAL HISTORY - Past Medical History Cardiovascular: None Respiratory: None Endocrine/Autoimmune: None GI: None OLIVE GROWER: Endometriosis : None HEENT: None Psych: Depression, Anxiety Musculoskeletal: None Derm: None - Past Surgical History Past Surgical History: Yes - Present Medications Home Medications: Ambulatory Orders Medication Instructions Recorded Confirmed Buspirone HCl 30 mg PO TID 10/20/15 11/17/17 Fluoxetine HCl [Prozac] 20 mg PO DAILY 10/20/15 11/17/17 Loratadine [Claritin] 10 mg PO DAILY PRN #5 tablet 10/30/15 11/17/17 Pantoprazole Sodium [Protonix] 20 mg PO DAILY 04/23/16 11/17/17 Ondansetron Odt [Zofran] 4 mg TL Q6H PRN #10 tablet 12/12/16 11/17/17 Doxylamine Succinate [[place]] 25 mg PO TID #60 tablet 08/17/17 11/17/17 Ondansetron HCl [Zofran] 4 mg PO Q6H PRN #20 tablet 08/17/17 11/17/17 Pnv95/Ferrous Fumarate/FA 1 each PO DAILY #30 tablet 08/17/17 11/17/17 [ Tablet] Pyridoxine HCl [Vitamin B-6] 25 mg PO BID #60 tablet 08/17/17 11/17/17 Albuterol Sulf [Ventolin Hfa 1 - 2 puffs INH Q4HR PRN #1 inhaler 10/12/17 Inhaler] Dexamethasone [Decadron] 4 mg PO DAILY #5 tablet 10/12/17 11/17/17 - Allergies Allergies/Adverse Reactions: Allergies Allergy/AdvReac Type Severity Reaction Status Date / Time hydromorphone HCl * Allergy Nausea Verified 10/11/17 22:53 [From Dilaudid] iodine Allergy Respiratory Verified 10/11/17 22:53 latex Allergy Hives Verified 10/11/17 22:53 oxycodone HCl * Allergy Emesis Verified 10/11/17 22:53 [From Percocet] Penicillins Allergy Hives Verified 10/11/17 22:53 aspirin AdvReac Intermediate Epistaxis Verified 04/19/18 08:24 codeine AdvReac Emesis Verified 10/11/17 22:53 pseudoephedrine HCl * AdvReac Edema Verified 10/11/17 22:53 [From Sudafed] erythromycin eye ointment AdvReac Intermediate swelling Uncoded 10/11/17 22:53 - Social History Does the pt smoke?: No Smoking Status: Former smoker Does the pt drink ETOH?: Yes Does the pt have substance abuse?: No - Immunizations Immunizations are current?: Yes - POLST Patient has POLST: No PD ED PE NORMAL - Vitals Vital signs reviewed: Yes - General General: Alert and oriented X 3, No acute distress - HEENT HEENT: Atraumatic - Cardiac Cardiac: RRR - Respiratory Respiratory: No respiratory distress - Female Female : Deferred - Neuro Neuro: Alert and oriented X 3, No motor deficit, Normal speech Eye Opening: Spontaneous PD ED PE EXPANDED - Abdomen Abdomen: Surgical scars (wound vac in place) - Derm Derm: Rash (erythematous, puritic rash diffusely across abdomen concentrated in regions around the tegaderm), Bruising (bilateral extremities) Results - Vitals Vitals: Vital Signs - 24 hr 04/23/18 00:22 Temperature 36.5 C Heart Rate 78 Respiratory 17 Rate Blood Pressure 137/70 H O2 Saturation 98 Oxygen O2 Source Room air PD MEDICAL DECISION MAKING - ED course Complexity details: reviewed old records, reviewed results, re-evaluated patient , considered differential, d/w patient ED course: Patient was seen and examined at bedside. patient was well appearing and in no distress. Patient's renner was examined and was in place. Patient was treated with benadryl for her allergic reaction. Patient required no further work up and was stable for discharge with outpatient follow up. - Sepsis Event Current Stage of Sepsis: Ruled out Reason for ruling out sepsis: no signs of sepsis Vital Signs: Vital Signs - 24 hr 04/23/18 00:22 Temperature 36.5 C Heart Rate 78 Respiratory 17 Rate Blood Pressure 137/70 H O2 Saturation 98 Oxygen O2 Source Room air Departure - Departure Disposition: 01 Home, Self Care Clinical Impression: Allergic reaction Condition: Good Instructions: ED Allergic Reaction Local Other Follow-Up: Elmer Quan MD [Provider Admit Priv/Credential] - Tomorrow Comments: You can take benadryl or apply topical benadryl or low dose steroid cream to see if it helps with the rash. You should follow up with Dr. Quan tomorrow. You may return to the emergency department at any time for new, worsening or uncontrollable symptoms.
== END 2018-04-23 01:03 | disposition home or self-care (01) ==
LOC: ED 00:19
DX: T78.49XA Other allergy, initial encounter (principal); X58.XXXA Exposure to other specified factors, initial encounter; Z98.890 Other specified postprocedural states; Z87.891 Personal history of nicotine dependence
CPT/HCPCS: 99282; A9270

== ENCOUNTER 2018-04-30 13:49 | Outpatient (CLI) | payer MEDICAID ==
[2018-04-30 15:22] LABS: BILIRUBIN,URINE NEGATIVE (NEGATIVE); GLUCOSE, URINE (UA) NEGATIVE (NEGATIVE); KETONES,URINE (UA) NEGATIVE (NEGATIVE); LEUKOCYTE ESTERASE, URINE NEGATIVE (NEGATIVE); NITRITE,URINE NEGATIVE (NEGATIVE); OCCULT BLOOD,URINE TRACE-INTA (NEGATIVE); PH,URINE 7.5 PH (5.0-7.5); PROTEIN,URINE TRACE mg/dL (NEGATIVE); UROBILINOGEN,URINE 0.2 (NORMAL) E.U./dL (NORMAL)
[2018-04-30 15:24] LABS: CLARITY,URINE CLEAR (CLEAR)
[2018-04-30 15:39] LABS: BACTERIA,URINE Many /HPF (None Seen); SQUAMOUS EPITHELIAL CELL,UR RARE Squamous (<= Few)
[2018-04-30 15:40] LABS: AMORPHOUS SEDIMENT,UR Few /LPF; CRYSTALS,URINE 11-25 Triple Phos /LPF
== END 2018-04-30 23:59 ==
LOC: LAB.R 13:49
PROVIDERS: ATTEND Obstetrics & Gynecology
DX: R82.99 Other abnormal findings in urine (principal); O86.0 Infection of obstetric surgical wound
CPT/HCPCS: 81001; 87070; 87077; 87086; 87181; 87205

== ENCOUNTER 2018-06-03 14:25 | Outpatient (CLI) | payer MEDICAID ==
[2018-06-03 14:59] LABS: BASOPHILS # (AUTO) 0.1 10^3/uL (0.0-0.1); BASOPHILS % (AUTO) 1.3 %; EOSINOPHILS # (AUTO) 0.1 10^3/uL (0.0-0.7); EOSINOPHILS % (AUTO) 1.3 %; HGB - HEMOGLOBIN 13.6 g/dL (12.0-16.0); LYMPHOCYTES # (AUTO) 2.3 10^3/uL (1.5-3.5); LYMPHOCYTES % (AUTO) 29.9 %; MEAN CORPUSCULAR HEMOGLOBIN 29.7 pg (27.0-31.0); MEAN CORPUSCULAR HGB CONC 34.3 g/dL (32.0-36.0); MEAN CORPUSCULAR VOLUME 86.4 fL (81.0-99.0); MEAN PLATELET VOLUME 6.5 fL (7.9-10.8); MONOCYTES # (AUTO) 0.5 10^3/uL (0.0-1.0); MONOCYTES % (AUTO) 5.9 %; NEUTROPHILS # (AUTO) 4.7 10^3/uL (1.5-6.6); NEUTROPHILS % (AUTO) 61.6 %; PLT - PLATELET COUNT 277 10^3/uL (130-450); RED BLOOD COUNT 4.58 10^6/uL (4.20-5.40); RED CELL DISTRIBUTION WIDTH 14.2 % (12.0-15.0); WHITE BLOOD COUNT 7.7 x10^3/uL (4.8-10.8)
== END 2018-06-03 14:26 | disposition home or self-care (01) ==
LOC: LAB 14:25
PROVIDERS: ATTEND Obstetrics & Gynecology
DX: D64.9 Anemia, unspecified (principal)
CPT/HCPCS: 36415; 85025

== ENCOUNTER 2018-08-03 08:00 | Outpatient (CLI) | payer MEDICAID | END 2018-08-03 23:59 | LOC: LAB.R 08:00 | PROVIDERS: ATTEND Obstetrics & Gynecology | DX: N94.19 Other specified dyspareunia (principal) | CPT/HCPCS: 87480; 87510; 87660 ==

== ENCOUNTER 2018-10-08 17:53 | Emergency (ER) | payer MEDICAID ==
[2018-10-08 18:45] LABS: BASOPHILS % (AUTO) 0.4 %; EOSINOPHILS # (AUTO) 0.1 10^3/uL (0.0-0.7); HGB - HEMOGLOBIN 15.3 g/dL (12.0-16.0); LYMPHOCYTES # (AUTO) 1.2 10^3/uL (1.5-3.5); MEAN CORPUSCULAR HEMOGLOBIN 30.1 pg (27.0-31.0); MEAN CORPUSCULAR HGB CONC 34.8 g/dL (32.0-36.0); MEAN CORPUSCULAR VOLUME 86.5 fL (81.0-99.0); MEAN PLATELET VOLUME 6.6 fL (7.9-10.8); MONOCYTES # (AUTO) 0.4 10^3/uL (0.0-1.0); MONOCYTES % (AUTO) 5.1 %; NEUTROPHILS # (AUTO) 6.4 10^3/uL (1.5-6.6); NEUTROPHILS % (AUTO) 78.5 %; PLT - PLATELET COUNT 308 10^3/uL (130-450); RED BLOOD COUNT 5.08 10^6/uL (4.20-5.40); RED CELL DISTRIBUTION WIDTH 14.3 % (12.0-15.0); WHITE BLOOD COUNT 8.1 x10^3/uL (4.8-10.8)
[2018-10-08 19:00] LABS: ALBUMIN/GLOBULIN RATIO 1.4 (1.0-2.2); BILIRUBIN,TOTAL 0.9 mg/dL (0.2-1.0); CALCIUM 9.7 mg/dL (8.5-10.3); CREATININE 0.8 mg/dL (0.4-1.0); TOTAL PROTEIN 8.7 g/dL (6.7-8.2)
[2018-10-08] MEDS ORDERED: ONDANSETRON 4 MG/2 ML VIAL IVP STA (19:04)
[2018-10-08] MEDS ORDERED: SODIUM CHLORIDE 0.9% 1,000 ML IV ONE (19:04)
[2018-10-08] MEDS ORDERED: KETOROLAC 60 MG/2 ML VIAL IVP STA (19:04)
[2018-10-08] MEDS ORDERED: LOPERAMIDE 2 MG CAPSULE PO STA (19:05)
--- NOTE | 2018-10-08 19:06 | ED Physician Documentation ---
PD HPI NVD - Stated complaint Stated Complaint: FEVER/VOMITING/COUGH - Chief complaint Chief Complaint: Abd Pain - History obtained from History obtained from: Patient, Family - History of Present Illness Timing - onset: Today (Abruptly sick today with vomiting and diarrhea and stomach cramps. No fevers. Her significant other had the same thing yesterday and her baby has it today.) Review of Systems Constitutional: reports: Sweats. denies: Fever, Chills Cardiac: denies: Chest pain / pressure, Palpitations Respiratory: denies: Dyspnea, Cough GI: reports: Abdominal Pain, Nausea, Vomiting, Diarrhea. 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: Endometriosis : None HEENT: None Psych: Depression, Anxiety Musculoskeletal: None Derm: None - Past Surgical History Past Surgical History: Yes /PARAKEET RAISER: section - Present Medications Home Medications: Ambulatory Orders Medication Instructions Recorded Confirmed Loratadine [Claritin] 10 mg PO DAILY PRN #5 tablet 10/30/15 11/17/17 Pantoprazole Sodium [Protonix] 20 mg PO DAILY 04/23/16 11/17/17 Albuterol Sulf [Ventolin Hfa 1 - 2 puffs INH Q4HR PRN #1 inhaler 10/12/17 11/17/17 Inhaler] Sertraline [Zoloft] 10/08/18 - Allergies Allergies/Adverse Reactions: Allergies Allergy/AdvReac Type Severity Reaction Status Date / Time hydromorphone HCl * Allergy Nausea Verified 10/08/18 18:06 [From Dilaudid] iodine Allergy Respiratory Verified 10/08/18 18:06 latex Allergy Hives Verified 10/08/18 18:06 oxycodone HCl * Allergy Emesis Verified 10/08/18 18:06 [From Percocet] Penicillins Allergy Hives Verified 10/08/18 18:06 aspirin AdvReac Intermediate Epistaxis Verified 10/08/18 18:06 codeine AdvReac Emesis Verified 10/08/18 18:06 pseudoephedrine HCl * AdvReac Edema Verified 10/08/18 18:06 [From Sudafed] erythromycin eye ointment AdvReac Intermediate swelling Uncoded 10/08/18 18:06 - Social History Does the pt smoke?: No Smoking Status: Former smoker Does the pt drink ETOH?: Yes Does the pt have substance abuse?: No - Immunizations Immunizations are current?: Yes - POLST Patient has POLST: No PD ED PE NORMAL - Vitals Vital signs reviewed: Yes - General General: Alert and oriented X 3, No acute distress - HEENT HEENT: PERRL, EOMI - Neck Neck: Supple, no meningeal sign, No bony TTP - Cardiac Cardiac: RRR, No murmur - Respiratory Respiratory: No respiratory distress, Clear bilaterally - Abdomen Abdomen: Non tender - Derm Derm: Other (Sweaty) - Neuro Neuro: Alert and oriented X 3, Normal speech Results - Vitals Vitals: Vital Signs - 24 hr 10/08/18 10/08/18 10/08/18 18:00 19:52 20:40 Temperature 36.9 C Heart Rate 116 H 94 93 Respiratory 16 17 16 Rate Blood Pressure 133/100 H 98/78 103/59 L O2 Saturation 96 98 98 Oxygen O2 Source Room air - Labs Labs: Laboratory Tests 10/08/18 10/08/18 18:35 18:35 WBC 8.1 RBC 5.08 Hgb 15.3 Hct 43.9 MCV 86.5 MCH 30.1 MCHC 34.8 RDW 14.3 Plt Count 308 MPV 6.6 L Neut # (Auto) 6.4 Lymph # (Auto) 1.2 L [place] # (Auto) 0.4 Eos # (Auto) 0.1 Baso # (Auto) 0.0 Absolute Nucleated RBC 0.01 Nucleated RBC % 0.1 Sodium 141 Potassium 4.0 Chloride 103 Carbon Dioxide 28 Anion Gap 10.0 BUN 16 Creatinine 0.8 Estimated GFR (MDRD) 81 L Glucose 109 H Calcium 9.7 Total Bilirubin 0.9 AST 20 ALT 24 Alkaline Phosphatase 151 H Total Protein 8.7 H Albumin 5.0 Globulin 3.7 Albumin/Globulin Ratio 1.4 Lipase 43 PD MEDICAL DECISION MAKING - ED course ED course: 38-year-old woman with clinical syndrome consistent with gastroenteritis which multiple other family members also have. After IV fluids and Zofran she was feeling much better and passed an oral challenge. She did not want to stay to give a urinalysis and declined the possibility of . Departure - Departure Disposition: 01 Home, Self Care Clinical Impression: Gastroenteritis Condition: Good Record reviewed to determine appropriate education?: Yes Instructions: ED Gastroenteritis Viral Comments: Return in 12-18 hours if not better, anytime if worse or if new symptoms develop.
[2018-10-08] MEDS ORDERED: ONDANSETRON ODT 4 MG Prepack 2 TL STA (20:07)
[2018-10-08 20:41] VITALS: BP 103/59
== END 2018-10-08 21:22 | disposition home or self-care (01) ==
LOC: ED 17:53
DX: K52.9 Noninfective gastroenteritis and colitis, unspecified (principal); Z87.891 Personal history of nicotine dependence
CPT/HCPCS: 36415; 80053; 83690; 85025; 96361; 96374; 96375; 99283; A9270

== ENCOUNTER 2018-11-27 20:37 | Emergency (ER) | payer MEDICAID ==
[2018-11-27 20:57] VITALS: BP 114/77
[2018-11-27] MEDS ORDERED: TOBRAM/DEXAMETH OPHTH DROPS 2.5 ML EACHEYE STA (21:13)
[2018-11-27] MEDS ORDERED: IBUPROFEN 800 MG TABLET PO STA (21:13)
--- NOTE | 2018-11-27 21:16 | ED Physician Documentation ---
PD HPI OPHTHO - Stated complaint Stated Complaint: BILAT EYE SWELLING/REDNESS - Chief complaint Chief Complaint: Heent - History obtained from History obtained from: Patient - History of Present Illness Timing - onset: Other (The last 2 months she has had problems with recurrent styes. She has 3 currently, a small one on the left and even smaller ones on the right. Her vision is unaffected. She is been on bacitracin which has not been helpful.) Review of Systems Constitutional: denies: Fever, Chills Eyes: reports: Discharge, Irritation. 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 : None HEENT: None Psych: Depression, Anxiety Musculoskeletal: None Derm: None - Past Surgical History Past Surgical History: Yes /GOLF CADDIE: section - Present Medications Home Medications: Ambulatory Orders Medication Instructions Recorded Confirmed Loratadine [Claritin] 10 mg PO DAILY PRN #5 tablet 10/30/15 11/17/17 Pantoprazole Sodium [Protonix] 20 mg PO DAILY 04/23/16 11/17/17 Albuterol Sulf [Ventolin Hfa 1 - 2 puffs INH Q4HR PRN #1 inhaler 10/12/17 11/17/17 Inhaler] Sertraline [Zoloft] 10/08/18 Ibuprofen [Motrin] 800 mg PO Q8H PRN #30 tablet 11/27/18 Tobramycin/Dexamethasone [Tobradex 1 drops OP QID 10 Days #1 11/27/18 Eye Drops] drops.susp - Allergies Allergies/Adverse Reactions: Allergies Allergy/AdvReac Type Severity Reaction Status Date / Time hydromorphone HCl * Allergy Nausea Verified 11/27/18 20:57 [From Dilaudid] iodine Allergy Respiratory Verified 11/27/18 20:57 latex Allergy Hives Verified 11/27/18 20:57 oxycodone HCl * Allergy Emesis Verified 11/27/18 20:57 [From Percocet] Penicillins Allergy Hives Verified 11/27/18 20:57 aspirin AdvReac Intermediate Epistaxis Verified 11/27/18 20:57 codeine AdvReac Emesis Verified 11/27/18 20:57 pseudoephedrine HCl * AdvReac Edema Verified 11/27/18 20:57 [From Sudafed] erythromycin eye ointment AdvReac Intermediate swelling Uncoded 11/27/18 20:57 - Social History Does the pt smoke?: No Smoking Status: Former smoker Does the pt drink ETOH?: Yes Does the pt have substance abuse?: No - Immunizations Immunizations are current?: Yes - POLST Patient has POLST: No PD ED PE NORMAL - Vitals Vital signs reviewed: Yes - General General: Alert and oriented X 3, No acute distress - HEENT HEENT: Other (She has very small size, 1 left lower lateral lid and 2 on the right lower lid. It is almost more of a bad case of blepharitis than a stye.) - Neck Neck: Supple, no meningeal sign, No bony TTP - Derm Derm: No rash - Neuro Neuro: Alert and oriented X 3, Normal speech Results - Vitals Vitals: Vital Signs - 24 hr 11/27/18 20:54 Temperature 36.3 C L Heart Rate 95 Respiratory 18 Rate Blood Pressure 114/77 O2 Saturation 100 Oxygen O2 Source Room air Departure - Departure Disposition: 01 Home, Self Care Clinical Impression: Blepharitis of both eyes Qualifiers: Blepharitis type: squamous Eyelid: lower Qualified Code(s): H01.022 - Squamous blepharitis right lower eyelid; H01.025 - Squamous blepharitis left lower eyelid Condition: Good Record reviewed to determine appropriate education?: Yes Instructions: Blepharitis Follow-Up: Francis Mccullough MD [Provider Admit Priv/Credential] - Within 1 week Prescriptions: Ibuprofen [Motrin] 800 mg PO Q8H PRN #30 tablet PRN Reason: PAIN &/OR FEVER Tobramycin/Dexamethasone [Tobradex Eye Drops] 1 drops OP QID 10 Days #1 drops.susp
== END 2018-11-27 21:22 | disposition home or self-care (01) ==
LOC: ED 20:37
DX: H01.022 Squamous blepharitis right lower eyelid (principal); H01.025 Squamous blepharitis left lower eyelid; Z87.891 Personal history of nicotine dependence
CPT/HCPCS: 99283; A9270

== ENCOUNTER 2019-03-19 16:38 | Emergency (ER) | payer MEDICAID ==
[2019-03-19 16:55] VITALS: BP 108/69
[2019-03-19] MEDS ORDERED: MECLIZINE 12.5 MG TABLET PO STA (17:13)
--- NOTE | 2019-03-19 17:16 | ED Physician Documentation ---
PD HPI FOCAL NEURO - Stated complaint Stated Complaint: DIZZINESS,N/V 6-10 WKS PREG - Chief complaint Chief Complaint: Neuro - History obtained from History obtained from: Patient - History of Present Illness Timing - onset: Other (G6, P1 who is at not clear gestation but probably early presents with 2 weeks of intermittent spinning like dizziness that usually starts at night when she is rolling over in bed. Is not associated with respiratory symptoms or ear pain. She is nauseous and has been vomiting but denies diarrhea, abdominal pain, cramping or bleeding.) Review of Systems Constitutional: denies: Fever, Chills Ears: denies: Ear pain Nose: denies: Rhinorrhea / runny nose, Congestion Throat: denies: Sore throat Cardiac: denies: Chest pain / pressure, Palpitations PD PAST MEDICAL HISTORY - Past Medical History Past Medical History: Yes Cardiovascular: None Respiratory: None Neuro: None Endocrine/Autoimmune: None GI: None YARD SPECIALIST: Endometriosis : None HEENT: None Psych: Depression, Anxiety Musculoskeletal: None Derm: None - Past Surgical History Past Surgical History: Yes /YARD SPECIALIST: section - Present Medications Home Medications: Ambulatory Orders Medication Instructions Recorded Confirmed Loratadine [Claritin] 10 mg PO DAILY PRN #5 tablet 10/30/15 11/17/17 Pantoprazole Sodium [Protonix] 20 mg PO DAILY 04/23/16 11/17/17 Albuterol Sulf [Ventolin Hfa 1 - 2 puffs INH Q4HR PRN #1 inhaler 10/12/17 11/17/17 Inhaler] Sertraline [Zoloft] 10/08/18 Ibuprofen [Motrin] 800 mg PO Q8H PRN #30 tablet 11/27/18 Tobramycin/Dexamethasone [Tobradex 1 drops OP QID 10 Days #1 11/27/18 Eye Drops] drops.susp Meclizine HCl 25 mg PO Q6H PRN #20 tab.chew 03/19/19 - Allergies Allergies/Adverse Reactions: Allergies Allergy/AdvReac Type Severity Reaction Status Date / Time hydromorphone HCl * Allergy Nausea Verified 03/19/19 16:55 [From Dilaudid] iodine Allergy Respiratory Verified 11/27/18 20:57 latex Allergy Hives Verified 11/27/18 20:57 oxycodone HCl * Allergy Emesis Verified 11/27/18 20:57 [From Percocet] Penicillins Allergy Hives Verified 11/27/18 20:57 aspirin AdvReac Intermediate Epistaxis Verified 11/27/18 20:57 codeine AdvReac Emesis Verified 11/27/18 20:57 pseudoephedrine HCl * AdvReac Edema Verified 11/27/18 20:57 [From Sudafed] erythromycin eye ointment AdvReac Intermediate swelling Uncoded 11/27/18 20:57 - Social History Does the pt smoke?: No Smoking Status: Never smoker Does the pt drink ETOH?: Yes Does the pt have substance abuse?: Yes Substance Use and Type: Marijuana - Immunizations Immunizations are current?: Yes - POLST Patient has POLST: No PD ED PE NORMAL - Vitals Vital signs reviewed: Yes - General General: Alert and oriented X 3, No acute distress - HEENT HEENT: PERRL, EOMI - Neck Neck: Supple, no meningeal sign, No bony TTP - Abdomen Abdomen: Soft, Non tender - Female Female : Other (Bedside ultrasound demonstrates single live intrauterine with a heart rate of 146, crown-rump length consistent with about 7 weeks 0 days gestation.) - Back Back: No CVA TTP, No spinal TTP - Neuro Neuro: Alert and oriented X 3, Normal speech, Other (She is not vertiginous si tting in bed, she has no nystagmus. She has normal [id number] and sgjf-[id number] testing. She gets very symptomatic with [place] testing with the left ear down, and she was counseled on the Ana Paula maneuver.) - Psych Psych: Normal mood, Normal affect Results - Vitals Vitals: Vital Signs - 24 hr 03/19/19 16:50 Temperature 37.0 C Heart Rate 71 Respiratory 16 Rate Blood Pressure 108/69 O2 Saturation 100 Oxygen O2 Source Room air PD MEDICAL DECISION MAKING - ED course ED course: This is a young woman with peripheral vertigo in early , she was counseled on the Ana Paula maneuver also given a prescription for meclizine which should help with both the dizziness and of the nausea. Departure - Departure Disposition: 01 Home, Self Care Clinical Impression: Vertigo, Early stage of Condition: Good Record reviewed to determine appropriate education?: Yes Instructions: Vertigo Paroxysmal Positional Prescriptions: Meclizine HCl 25 mg PO Q6H PRN #20 tab.chew PRN Reason: Dizziness Comments: Call your doctor to arrange a follow-up appointment, make the next available appointment. In the interim, return anytime if worse or if new symptoms develop.
== END 2019-03-19 17:39 | disposition home or self-care (01) ==
LOC: ED 16:38
DX: H81.399 Other peripheral vertigo, unspecified ear (principal); O99.89 Other specified diseases and conditions complicating pregnancy, childbirth and the puerperium; Z3A.01 Less than 8 weeks gestation of pregnancy
CPT/HCPCS: 99283; A9270

== ENCOUNTER 2019-04-04 11:29 | Outpatient (CLI) | payer MEDICAID ==
--- NOTE | 2019-04-05 09:06 | Ultrasound Report ---
Reason: TEST POSITIVE Procedure Date: 04/04/2019 Accession Number: [id number] / [id number] Procedure: US - OB First Trimester CPT Code: FULL RESULT: EXAM: FIRST TRIMESTER OBSTETRIC ULTRASOUND (Less than 11 weeks) EXAM DATE: 04/04/2019 01:03 PM. CLINICAL HISTORY: test positive. LMP: 01/21/2019. COMPARISONS: OB FIRST TRIMESTER 08/17/2017 5:15 PM. TECHNIQUE: Transabdominal ultrasound examination with static image documentation. CLINICAL DATES: EGA 10 weeks 3 days with RUFUS 10/28/2019 based on LMP. ASSESSMENT: Gestational Sac: Single intrauterine. Embryo: CRL (crown-rump length) 27.1 mm = 9 weeks 2 days with an RUFUS of 11/05/2019. Cardiac activity: 162 beats per minute. Yolk sac: 4.6 mm. Amniotic fluid: Not accurately assessed at this gestational age. Early placenta: Not visible at this gestational age. Other: No perigestational fluid collection demonstrated. MATERNAL STRUCTURES: Uterus: Anteverted. Unremarkable. Cervix: Closed. Right Ovary/Adnexa: Ovary not seen. No adnexal abnormality. Limitation secondary to bowel gas. Unremarkable right adnexal area. Left Ovary/Adnexa: The ovary measures 3.4 x 2.1 x 2.3 cm, volume 8.6 cc. 1.8 x 1 x 1.5 cm complex left ovarian cyst with debris and mild peripheral flow. No mural nodules or thickened septations. Free Fluid: None. Other: None. IMPRESSION: 1. Single viable intrauterine at EGA 9 weeks 2 days with RUFUS 11/05/2019 based on crown-rump length, which is discordant with clinical dates. 2. Assigned dating is RUFUS 11/05/2019 based on current ultrasound. 3. No complications such as subchorionic hemorrhage. 4. Right ovary not seen. Normal left ovary. Both adnexa are normal. RADIA
== END 2019-04-04 11:30 | disposition home or self-care (01) ==
LOC: DI 11:29
PROVIDERS: ATTEND Obstetrics & Gynecology
DX: Z32.01 Encounter for pregnancy test, result positive (principal)
CPT/HCPCS: 76801

== ENCOUNTER 2019-04-14 15:39 | Outpatient (CLI) | payer MEDICAID ==
[2019-04-14 16:02] LABS: MUDS CUTOFF CONCENTRATIONS CUTOFF CONC BELOW:
[2019-04-14 16:06] LABS: BILIRUBIN,URINE NEGATIVE (NEGATIVE); GLUCOSE, URINE (UA) NEGATIVE (NEGATIVE); KETONES,URINE (UA) NEGATIVE (NEGATIVE); LEUKOCYTE ESTERASE, URINE NEGATIVE (NEGATIVE); NITRITE,URINE NEGATIVE (NEGATIVE); OCCULT BLOOD,URINE NEGATIVE (NEGATIVE); PH,URINE 7.5 PH (5.0-7.5); PROTEIN,URINE NEGATIVE (NEGATIVE); UROBILINOGEN,URINE 0.2 (NORMAL) E.U./dL (NORMAL)
[2019-04-14 16:07] LABS: BASOPHILS # (AUTO) 0.1 10^3/uL (0.0-0.1); BASOPHILS % (AUTO) 0.7 %; EOSINOPHILS # (AUTO) 0.1 10^3/uL (0.0-0.7); EOSINOPHILS % (AUTO) 0.9 %; HGB - HEMOGLOBIN 13.6 g/dL (12.0-16.0); LYMPHOCYTES # (AUTO) 2.2 10^3/uL (1.5-3.5); LYMPHOCYTES % (AUTO) 25.2 %; MEAN CORPUSCULAR HEMOGLOBIN 29.3 pg (27.0-31.0); MEAN CORPUSCULAR VOLUME 86.3 fL (81.0-99.0); MEAN PLATELET VOLUME 7.2 fL (7.9-10.8); MONOCYTES # (AUTO) 0.5 10^3/uL (0.0-1.0); MONOCYTES % (AUTO) 5.6 %; NEUTROPHILS # (AUTO) 5.8 10^3/uL (1.5-6.6); NEUTROPHILS % (AUTO) 67.6 %; PLT - PLATELET COUNT 280 10^3/uL (130-450); RED BLOOD COUNT 4.62 10^6/uL (4.20-5.40); RED CELL DISTRIBUTION WIDTH 14.6 % (12.0-15.0); WHITE BLOOD COUNT 8.6 x10^3/uL (4.8-10.8)
[2019-04-14 16:08] LABS: CLARITY,URINE CLEAR (CLEAR)
[2019-04-14 16:17] LABS: AMPHETAMINE SCREEN,URINE NEGATIVE (NEGATIVE); BENZODIAZEPINES SCREEN, URINE NEGATIVE (NEGATIVE); COCAINE SCREEN URINE NEGATIVE (NEGATIVE); METHADONE SCREEN, URINE NEGATIVE (NEGATIVE); METHAMPHETAMINES SCREEN, URINE NEGATIVE (NEGATIVE); OPIATE SCREEN, URINE NEGATIVE (NEGATIVE); OXYCODONE SCREEN, URINE NEGATIVE (NEGATIVE); PROPOXYPHENE SCREEN, URINE NEGATIVE (NEGATIVE); TRICYCLIC ANTIDEPRESSANT,URINE NEGATIVE (NEGATIVE)
[2019-04-14 16:17] LABS: CREATININE 0.5 mg/dL (0.4-1.0)
[2019-04-14 16:28] LABS: CREATININE,URINE 66.8 mg/dL; PROTEIN/CREATININE RATIO,URINE 0.1 (<=0.2)
[2019-04-15 14:07] LABS: HEPATITIS B SURFACE ANTIGEN NON-REACTIVE (NON-REACTIVE)
[2019-04-15 14:09] LABS: HEPATITIS C ANTIBODY NON-REACTIVE (NON-REACTIVE)
[2019-04-15 14:45] LABS: HIV AG/AB 4TH GEN NON-REACTIVE (NON-REACTIVE)
== END 2019-04-14 15:40 | disposition home or self-care (01) ==
LOC: LAB 15:39
PROVIDERS: ATTEND Obstetrics & Gynecology
DX: Z34.01 Encounter for supervision of normal first pregnancy, first trimester (principal); Z87.59 Personal history of other complications of pregnancy, childbirth and the puerperium
CPT/HCPCS: 36415; 80306; 80349; 81001; 81003; 81599; 82565; 82570; 83615; 84156; 84450; 84550; 85025; 86592; 86762; 86803; 86850; 86900; 86901; 87086; 87340; 87389

== ENCOUNTER 2019-05-10 10:41 | Outpatient (CLI) | payer MEDICAID ==
--- NOTE | 2019-05-10 13:17 | Ultrasound Report ---
Reason: HEMANGIOMA,HEPATIC Procedure Date: 05/10/2019 Accession Number: [id number] / [id number] Procedure: US - Abdomen Limited CPT Code: FULL RESULT: EXAM: ABDOMEN ULTRASOUND LIMITED, RUQ EXAM DATE: 05/10/2019 11:30 AM. CLINICAL HISTORY: Hemangioma, hepatic. COMPARISON: ABDOMEN LIMITED 07/03/2016 11:26 AM. TECHNIQUE: Real-time scanning was performed with static images obtained. FINDINGS: Liver: Normal in size and echotexture. A 5.5 x 3.6 x 5.8 cm homogeneous hyperechoic nodule is seen in the posterior right hepatic lobe similar to 07/03/2016 compatible with cavernous hemangioma. No new liver lesion is identified. The liver measuring 15.1 cm. Main portal vein flow: Hepatopetal. Gallbladder: Normal. No stones, wall thickening, or sonographic Hernández's sign. Biliary System: CBD measures 4 mm. No intrahepatic or extrahepatic ductal dilatation. Other: None. IMPRESSION: Stable 5.5 x 3.6 x 5.8 cm cavernous hemangioma in the posterior right hepatic lobe. No new liver lesion or abnormality is identified. RADIA
== END 2019-05-10 10:42 | disposition home or self-care (01) ==
LOC: DI 10:41
PROVIDERS: ATTEND Obstetrics & Gynecology
DX: D18.03 Hemangioma of intra-abdominal structures (principal)
CPT/HCPCS: 76705

== ENCOUNTER 2019-05-13 14:54 | Emergency (ER) | payer MEDICAID ==
[2019-05-13] MEDS ORDERED: SODIUM CHLORIDE 0.9% 1,000 ML IV ONE (15:45)
--- NOTE | 2019-05-13 16:14 | ED Physician Documentation ---
History of Present Illness - Stated complaint Stated Complaint: ABD PX/15 WKS - Chief complaint Chief Complaint: Abd Pain - History obtained from History obtained from: Patient - History of Present Illness Timing: Today - Additonal information Additional information: Patient is a 39-year-old female who is reportedly approximately 15 weeks presenting with abdominal cramping but no other associated symptoms. Patient has received care and for confirmatory ultrasound. Patient reports that she is compliant with her medications including vitamins. Patient denies nausea, vomiting, fever, chills, urinary changes, stool changes, or vaginal bleeding. Patient states that she intermittently experiences movement and has today. No other improving or worsening factors noted. Review of Systems Constitutional: denies: Fever GI: reports: Abdominal Pain. 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: Endometriosis : None HEENT: None Psych: Depression, Anxiety Musculoskeletal: None Derm: None - Past Surgical History Past Surgical History: Yes /DIRECTOR SUPPLIER QUALITY: section - Present Medications Home Medications: Ambulatory Orders Medication Instructions Recorded Confirmed Sertraline [Zoloft] 30 mg 10/08/18 Aspirin [Aspirin EC] 81 mg DAILY 05/13/19 05/13/19 - Allergies Allergies/Adverse Reactions: Allergies Allergy/AdvReac Type Severity Reaction Status Date / Time hydromorphone HCl * Allergy Nausea Verified 05/13/19 16:08 [From Dilaudid] iodine Allergy Respiratory Verified 05/13/19 16:08 latex Allergy Hives Verified 05/13/19 16:08 oxycodone HCl * Allergy Emesis Verified 05/13/19 16:08 [From Percocet] Penicillins Allergy Hives Verified 05/13/19 16:08 aspirin AdvReac Intermediate Epistaxis Verified 05/13/19 16:08 codeine AdvReac Emesis Verified 05/13/19 16:08 pseudoephedrine HCl * AdvReac Edema Verified 05/13/19 16:08 [From Sudafed] erythromycin eye ointment AdvReac Intermediate swelling Uncoded 11/27/18 20:57 - Social History Does the pt smoke?: No Smoking Status: Never smoker Does the pt drink ETOH?: Yes Does the pt have substance abuse?: Yes - Immunizations Immunizations are current?: Yes - POLST Patient has POLST: No PD ED PE NORMAL - Vitals Vital signs reviewed: Yes - General General: Alert and oriented X 3, No acute distress, Well developed/nourished - HEENT HEENT: Atraumatic, Moist mucous membranes - Cardiac Cardiac: RRR, No murmur - Respiratory Respiratory: No respiratory distress, Clear bilaterally - Abdomen Abdomen: Soft, Non tender, Other (Gravid) - Derm Derm: Normal color, Warm and dry - Extremities Extremities: No deformity, No tenderness to palpate, No edema - Neuro Neuro: Alert and oriented X 3, No motor deficit, No sensory deficit - Psych Psych: Normal mood Results - Vitals Vitals: Vital Signs - 24 hr 05/13/19 14:56 Temperature 36.5 C Heart Rate 86 Respiratory 16 Rate Blood Pressure 106/68 O2 Saturation 98 Oxygen O2 Source Room air - Labs Labs: Laboratory Tests 05/13/19 05/13/19 05/13/19 16:25 16:25 16:25 WBC 9.7 RBC 4.34 Hgb 13.2 Hct 37.0 MCV 85.3 MCH 30.4 MCHC 35.7 RDW 13.2 Plt Count 280 MPV 9.2 Neut # (Auto) 7.2 H Lymph # (Auto) 1.8 [place] # (Auto) 0.5 Eos # (Auto) 0.1 Baso # (Auto) 0.1 Absolute Nucleated RBC 0.00 Nucleated RBC % 0.0 Sodium 135 Potassium 3.7 Chloride 105 Carbon Dioxide 20 L Anion Gap 10.0 BUN 8 Creatinine 0.5 Estimated GFR (MDRD) 139 Glucose 96 Calcium 8.9 Total Bilirubin 0.6 AST 12 ALT 12 Alkaline Phosphatase 105 Total Protein 7.0 Albumin 3.5 Globulin 3.5 Albumin/Globulin Ratio 1.0 Lipase 40 HCG, Quant Urine Color Urine Clarity Urine pH Ur Specific [place] Urine Protein Urine Glucose (UA) Urine Ketones Urine Occult Blood Urine Nitrite Urine Bilirubin Urine Urobilinogen Ur Leukocyte Esterase Ur Microscopic Review Urine Culture Comments Blood Type A POSITIVE Antibody Screen NEGATIVE 05/13/19 05/13/19 16:25 16:35 WBC RBC Hgb Hct MCV MCH MCHC RDW Plt Count MPV Neut # (Auto) Lymph # (Auto) [place] # (Auto) Eos # (Auto) Baso # (Auto) Absolute Nucleated RBC Nucleated RBC % Sodium Potassium Chloride Carbon Dioxide Anion Gap BUN Creatinine Estimated GFR (MDRD) Glucose Calcium Total Bilirubin AST ALT Alkaline Phosphatase Total Protein Albumin Globulin Albumin/Globulin Ratio Lipase HCG, Quant 91442.00 Urine Color YELLOW Urine Clarity CLEAR Urine pH 7.0 Ur Specific [place] 1.015 Urine Protein NEGATIVE Urine Glucose (UA) NEGATIVE Urine Ketones NEGATIVE Urine Occult Blood NEGATIVE Urine Nitrite NEGATIVE Urine Bilirubin NEGATIVE Urine Urobilinogen 0.2 (NORMAL) Ur Leukocyte Esterase NEGATIVE Ur Microscopic Review NOT INDICATED Urine Culture Comments NOT INDICATED Blood Type Antibody Screen PD MEDICAL DECISION MAKING - ED course Complexity details: reviewed results, re-evaluated patient, considered differential, d/w patient ED course: Patient presenting with abdominal cramping at approximately 15 weeks . 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 Patient denies vaginal bleeding and have lower suspicion for , miscarriage, placental abruption, placenta previa at this time, but considered. Patient's exam is rather unremarkable otherwise. Patient received IV fluids, but not require medications. Patient is a positive blood type and otherwise expensing no vaginal bleeding, so not requiring RhoGam. Screening lab work and urinalysis returned relatively unremarkable without signs and of infection or other complication. Ultrasound also returned with intrauterine 15-week otherwise uncomplicated. Advised patient of results and recommendations, return precautions, supportive cares, need for close PRESS OPERATOR APPRENTICE follow-up. Patient voiced understanding and is comfortable with discharge plan. Departure - Departure Disposition: 01 Home, Self Care Clinical Impression: Vaginal bleeding affecting early Condition: Good Instructions: Preg 2nd Trimester, ED Care Follow-Up: your,doctor [Other] Comments: Please take home medications and vitamins as instructed. Please contact your PRESS OPERATOR APPRENTICE tomorrow to schedule close follow-up. Return to ED sooner if experience pain, cramping, vomiting, vaginal pain, or other concerns.
[2019-05-13 16:48] LABS: BASOPHILS # (AUTO) 0.1 10^3/uL (0.0-0.1); BASOPHILS % (AUTO) 0.5 %; EOSINOPHILS # (AUTO) 0.1 10^3/uL (0.0-0.7); EOSINOPHILS % (AUTO) 0.6 %; HGB - HEMOGLOBIN 13.2 g/dL (12.0-16.0); LYMPHOCYTES # (AUTO) 1.8 10^3/uL (1.5-3.5); LYMPHOCYTES % (AUTO) 18.7 %; MEAN CORPUSCULAR HEMOGLOBIN 30.4 pg (27.0-31.0); MEAN CORPUSCULAR HGB CONC 35.7 g/dL (32.0-36.0); MEAN CORPUSCULAR VOLUME 85.3 fL (81.0-99.0); MEAN PLATELET VOLUME 9.2 fL (7.9-10.8); MONOCYTES # (AUTO) 0.5 10^3/uL (0.0-1.0); MONOCYTES % (AUTO) 5.4 %; NEUTROPHILS # (AUTO) 7.2 10^3/uL (1.5-6.6); NEUTROPHILS % (AUTO) 74.3 %; PLT - PLATELET COUNT 280 10^3/uL (130-450); RED BLOOD COUNT 4.34 10^6/uL (4.20-5.40); RED CELL DISTRIBUTION WIDTH 13.2 % (12.0-15.0); WHITE BLOOD COUNT 9.7 x10^3/uL (4.8-10.8)
[2019-05-13 16:52] LABS: BILIRUBIN,URINE NEGATIVE (NEGATIVE); GLUCOSE, URINE (UA) NEGATIVE (NEGATIVE); KETONES,URINE (UA) NEGATIVE (NEGATIVE); LEUKOCYTE ESTERASE, URINE NEGATIVE (NEGATIVE); NITRITE,URINE NEGATIVE (NEGATIVE); OCCULT BLOOD,URINE NEGATIVE (NEGATIVE); PROTEIN,URINE NEGATIVE (NEGATIVE); UROBILINOGEN,URINE 0.2 (NORMAL) E.U./dL (NORMAL)
[2019-05-13 16:58] LABS: ALBUMIN 3.5 g/dL (3.2-5.5); BILIRUBIN,TOTAL 0.6 mg/dL (0.2-1.0); CALCIUM 8.9 mg/dL (8.5-10.3); CREATININE 0.5 mg/dL (0.4-1.0)
[2019-05-13 17:05] LABS: CLARITY,URINE CLEAR (CLEAR)
--- NOTE | 2019-05-13 18:09 | Ultrasound Report ---
Reason: abdominal cramping, 15 weeks Procedure Date: 05/13/2019 Accession Number: [id number] / [id number] Procedure: US - OB 14+ Weeks CPT Code: FULL RESULT: EXAM: LIMITED OBSTETRICAL ULTRASOUND EXAM DATE: 05/13/2019 05:29 PM. CLINICAL HISTORY: Abdominal cramping, 15 weeks. COMPARISON: None. TECHNIQUE: Real-time sonographic evaluation of the fetus performed by the actimize architect. Multiple union contract representative static images were saved for review. DATING: Established EGA weeks/days with RUFUS . GENERAL EVALUATION [place] . Cardiac activity: 144 bpm. movement: Visualized. Presentation: Breech Placenta: Posterior position. No abruption. No previa. Amniotic fluid: Qualitatively normal. BIOMETRY Bi-Parietal Diameter (BPD): 2.9 cm, 15 weeks 2 days Head Circumference (HC): 10.9 cm, 15 weeks 2 days Abdominal Circumference (AC): 9.05 cm, 15 weeks 2 days Femur Length (FL): 1.6 cm, 14 weeks 5 days ANATOMY: A limited antepartum obstetrical ultrasound examination was performed for the purpose of determining management in the acute care setting. A diagnostic survey was not performed. This does not eliminate the need for a full ultrasound when otherwise indicated. Stomach, four-chamber heart, three-vessel cord, cord insertion, choroid plexus are visualized and appear grossly unremarkable. MATERNAL STRUCTURES Cervix is closed. Length is 4.1 cm. Right ovary obscured by overlying bowel gas. Left ovary is unremarkable. IMPRESSION: 1. [place] live intrauterine with gestational age 15 weeks 1 day based on biometry. RADIA
[2019-05-13 18:45] VITALS: BP 111/63
== END 2019-05-13 18:25 | disposition home or self-care (01) ==
LOC: ED 14:54
DX: O20.9 Hemorrhage in early pregnancy, unspecified (principal); O99.89 Other specified diseases and conditions complicating pregnancy, childbirth and the puerperium; R10.9 Unspecified abdominal pain; Z3A.15 15 weeks gestation of pregnancy; O09.291 Supervision of pregnancy with other poor reproductive or obstetric history, first trimester; O09.521 Supervision of elderly multigravida, first trimester; Z79.82 Long term (current) use of aspirin
CPT/HCPCS: 76805; 80053; 81001; 81003; 83690; 84702; 85025; 86850; 86900; 86901; 87086; 99283

== ENCOUNTER 2019-05-18 08:00 | Outpatient (CLI) | payer MEDICAID | END 2019-05-18 08:01 | disposition home or self-care (01) | LOC: LAB.WCP 08:00 | PROVIDERS: ATTEND Obstetrics & Gynecology | DX: Z33.1 Pregnant state, incidental (principal) | CPT/HCPCS: 36415; 81599; 82677; 84163; 84702; 86336 ==

== ENCOUNTER 2019-06-20 13:45 | Outpatient (CLI) | payer MEDICAID ==
--- NOTE | 2019-06-21 09:12 | Ultrasound Report ---
Reason: SCREENING,OTHER SPECIFIED Procedure Date: 06/20/2019 Accession Number: [id number] / [id number] Procedure: US - OB Detailed Eval CPT Code: FULL RESULT: EXAM: COMPLETE OBSTETRICAL ULTRASOUND EXAM DATE: 06/20/2019 01:52 PM. CLINICAL HISTORY: anatomic survey. COMPARISON: OB DETAILED EVAL 12/18/2017 2:02 PM OB 14+ WEEKS 05/13/2019 4:53 PM. TECHNIQUE: Real-time sonographic evaluation of the fetus performed by the grain loader. Multiple door to door sales representative static images were saved for review. DATING: Established EGA 20 weeks 2 days with RUFUS 11/05/2019 based on first ultrasound/CRL. EGA 20 weeks 4 days with RUFUS 11/03/2019 based on prior ultrasound from 05/13/2019. EGA 20 weeks 1 day with RUFUS 11/06/2019 based on the current ultrasound. GENERAL EVALUATION [place] . Cardiac activity: 149 bpm. movement: Visualized. Presentation: Cephalic. Placenta: Posterior position. No evidence for previa. Umbilical cord: 3 vessel cord. Central placental cord origin. Amniotic fluid: Normal, JOSE R 12.4 cm. MVP 4.0 cm. BIOMETRY Bi-Parietal Diameter (BPD): 4.6 cm, 20 weeks 0 days Head Circumference (HC): 17.8 cm, 20 weeks 2 days Abdominal Circumference (AC): 15.7 cm, 20 weeks 6 days Femur Length (FL): 3.3 cm, 20 weeks 2 days Estimated Weight: 361 g, 61st percentile for weeks/days. ANATOMY The intracranial structures, profile, face/nose/lips,4 chamber heart, stomach, abdominal wall and cord insertion, diaphragm, kidneys, bladder, and extremities were visualized and demonstrate no abnormality. However, the ventricular outflow tracts and the spine are not optimally visualized due to position. MATERNAL STRUCTURES Uterus: Unremarkable. Cervix: Long and closed. Transabdominal length 4.3 cm. Right ovary/adnexa: Unremarkable. Left ovary/adnexa: Unremarkable 20 weeks 2 days. Free fluid: None. IMPRESSION: 1. [place] live intrauterine with gestational age 20 weeks 2 days based on first ultrasound/CRL. 2. Estimated weight is within expected limits for assigned dating. 3. No anatomic abnormalities are detected at this time. However, the ventricular outflow tracts and the spine are not optimally visualized due to position. Follow-up additional views could be obtained to reassess those structures. RADIA
== END 2019-06-20 13:46 | disposition home or self-care (01) ==
LOC: DI 13:45
PROVIDERS: ATTEND Obstetrics & Gynecology
DX: Z36.89 Encounter for other specified antenatal screening (principal)
CPT/HCPCS: 76811

== ENCOUNTER 2019-07-06 13:01 | Outpatient (CLI) | payer MEDICAID ==
--- NOTE | 2019-07-08 08:48 | Ultrasound Report ---
Reason: SUPERVISION OF NORMAL Procedure Date: 07/06/2019 Accession Number: [id number] / [id number] Procedure: US - OB F/U or Repeat CPT Code: FULL RESULT: EXAM: FOLLOW-UP OBSTETRICAL ULTRASOUND EXAM DATE: 07/06/2019 01:36 PM. CLINICAL HISTORY: Supervision of normal . COMPARISON: OB F/U OR REPEAT 01/21/2018 1:22 PM. TECHNIQUE: Real-time sonographic evaluation of the fetus performed by the medical billing associate. Multiple financial services sales representative static images were saved for review. DATING: Established EGA 22 weeks 4 days with RUFUS 11/05/2019 based on physician stated. EGA 22 weeks 3 days with RUFUS 11/06/2019 based on most recent ultrasound. GENERAL EVALUATION [place] . Cardiac activity: 151 bpm. movement: Visualized. Presentation: Variable. Placenta: Posterior position. Amniotic fluid: Normal. JOSE R 15.6 cm. MVP 5.6 cm. BIOMETRY Performed previously. ANATOMY Short-interval follow-up to visualize right ventricular outflow tract, left ventricular outflow tract and spine is performed. These structures are well imaged today and appear normal. MATERNAL STRUCTURES Performed previously. IMPRESSION: 1. [place] live intrauterine with gestational age 22 weeks 4 days based on physician stated. 2. Completion imaging of anatomic survey with normal-appearing ventricular outflow tracts and spine. RADIA
== END 2019-07-06 13:02 | disposition home or self-care (01) ==
LOC: DI 13:01
PROVIDERS: ATTEND Obstetrics & Gynecology
DX: Z34.90 Encounter for supervision of normal pregnancy, unspecified, unspecified trimester (principal)
CPT/HCPCS: 76816

== ENCOUNTER 2019-08-31 13:16 | Outpatient (CLI) | payer MEDICAID ==
[2019-08-31 19:08] LABS: HGB - HEMOGLOBIN 11.4 g/dL (12.0-16.0); MEAN CORPUSCULAR HEMOGLOBIN 30.1 pg (27.0-31.0); MEAN CORPUSCULAR HGB CONC 33.2 g/dL (32.0-36.0); MEAN CORPUSCULAR VOLUME 90.5 fL (81.0-99.0); RED BLOOD COUNT 3.79 10^6/uL (4.20-5.40); RED CELL DISTRIBUTION WIDTH 13.4 % (12.0-15.0); WHITE BLOOD COUNT 10.1 x10^3/uL (4.8-10.8)
== END 2019-08-31 13:17 | disposition home or self-care (01) ==
LOC: LAB.WCP 13:16
PROVIDERS: ATTEND Obstetrics & Gynecology
DX: Z36.89 Encounter for other specified antenatal screening (principal)
CPT/HCPCS: 36415; 82950; 85027; 86850

== ENCOUNTER 2019-09-30 15:18 | Outpatient (CLI) | payer MEDICAID ==
[2019-09-30] MEDS ORDERED: ONDANSETRON 4 MG/2 ML VIAL IVP PRN (15:26)
[2019-09-30 15:37] LABS: BASOPHILS % (AUTO) 0.4 %; EOSINOPHILS % (AUTO) 0.5 %; HGB - HEMOGLOBIN 11.6 g/dL (12.0-16.0); LYMPHOCYTES # (AUTO) 1.6 10^3/uL (1.5-3.5); MEAN CORPUSCULAR HEMOGLOBIN 28.8 pg (27.0-31.0); MEAN CORPUSCULAR HGB CONC 33.9 g/dL (32.0-36.0); MEAN CORPUSCULAR VOLUME 84.9 fL (81.0-99.0); MEAN PLATELET VOLUME 8.9 fL (7.9-10.8); MONOCYTES # (AUTO) 0.5 10^3/uL (0.0-1.0); MONOCYTES % (AUTO) 6.1 %; NEUTROPHILS # (AUTO) 5.9 10^3/uL (1.5-6.6); NEUTROPHILS % (AUTO) 72.5 %; PLT - PLATELET COUNT 262 10^3/uL (130-450); RED BLOOD COUNT 4.03 10^6/uL (4.20-5.40); RED CELL DISTRIBUTION WIDTH 13.6 % (12.0-15.0); WHITE BLOOD COUNT 8.2 x10^3/uL (4.8-10.8)
[2019-09-30 15:47] VITALS: BP 124/85
[2019-09-30 15:50] LABS: ALBUMIN/GLOBULIN RATIO 0.8 (1.0-2.2); BILIRUBIN,TOTAL 0.6 mg/dL (0.2-1.0); CALCIUM 8.8 mg/dL (8.5-10.3); CREATININE 0.5 mg/dL (0.4-1.0); TOTAL PROTEIN 6.8 g/dL (6.7-8.2)
[2019-09-30 15:51] LABS: CREATININE,URINE 123.2 mg/dL; PROTEIN/CREATININE RATIO,URINE 0.1 (<=0.2)
--- NOTE | 2019-10-01 10:24 | PROCEDURE REPORT ---
- HPI Diagnosis/Indication for NST: Other (r/o preeclampsia) Current EDU 11/05/19 Gestation 34 Weeks and 6 Days 4 Para 1 Vital Signs Temperature 97.9 F 09/30/19 15:32 Heart Rate 95 09/30/19 15:32 Respiratory Rate 18 09/30/19 15:32 Blood Pressure 118/83 H 09/30/19 15:32 O2 Saturation 99 09/30/19 15:32 Temperature 97.9 F 09/30/19 15:32 Heart Rate 83 09/30/19 15:45 Respiratory Rate 18 09/30/19 15:45 Blood Pressure 124/85 H 09/30/19 15:45 O2 Saturation 99 09/30/19 15:45 - NST Procedure NST Procedure Start Date 09/30/19 Start Time 15:27 Stop Time 16:04 Vibroacoustic Stimulation Used No Patient States Movement Yes - Results and Plan Findings/Impression: Category 1 NST [place] neg Normal serial BPs, P:C ratio, CBC, CMP. Plan: Ongoing preeclampsia precautions
== END 2019-09-30 16:25 | disposition home or self-care (01) ==
LOC: WFO 15:18 → FBP 15:20 → WFO 16:25
PROVIDERS: ATTEND Obstetrics & Gynecology
DX: O16.3 Unspecified maternal hypertension, third trimester (principal); Z3A.34 34 weeks gestation of pregnancy
CPT/HCPCS: 36415; 80053; 82570; 84156; 85025; 99214

== ENCOUNTER 2019-10-11 07:00 | Outpatient (CLI) | payer MEDICAID ==
[2019-10-11 21:42] LABS: TRICHOMONAS VAGINALIS DNA NEGATIVE (NEGATIVE)
== END 2019-10-11 23:59 | disposition home or self-care (01) ==
LOC: LAB.R 07:00
PROVIDERS: ATTEND Obstetrics & Gynecology
DX: O09.529 Supervision of elderly multigravida, unspecified trimester (principal); Z3A.00 Weeks of gestation of pregnancy not specified
CPT/HCPCS: 87491; 87591; 87661; 87797

== ENCOUNTER 2019-10-26 16:29 | Inpatient (IN) | payer MEDICAID ==
[2019-10-26] MEDS ORDERED: SODIUM CHLORIDE FLUSH 0.9% 10 ML SYRINGE ONE (16:50)
[2019-10-26] MEDS ORDERED: CITRIC ACID/SODIUM CITRATE 15 ML UDC PO ONE ×2 (17:07→19:31)
--- NOTE | 2019-10-26 17:16 | ANESTHESIA ---
Pre-Anesthesia VS, & Labs - Diagnosis previous c/s, labor - Procedure repeat c/s Vital Signs: Temp Pulse Resp BP Pulse Ox 36.4 C L 82 18 117/72 100 10/26/19 16:41 10/26/19 16:41 10/26/19 16:41 10/26/19 16:41 10/26/19 16:41 Height 5 ft 1.5 in Body Mass Index 25.7 - NPO >8 hours - Is Patient ?: Yes Home Medications and Allergies Active Medications Clindamycin Phosphate (Cleocin 900 Mg/50 Ml) 50 mls @ 50 mls/hr IV ONCE JACOB Sertraline [Zoloft] 30 mg 10/08/18 Aspirin [Aspirin EC] 81 mg DAILY 05/13/19 Allergies/Adverse Reactions: Allergies Allergy/AdvReac Type Severity Reaction Status Date / Time hydromorphone HCl * Allergy Nausea Verified 05/13/19 16:08 [From Dilaudid] iodine Allergy Respiratory Verified 05/13/19 16:08 latex Allergy Hives Verified 05/13/19 16:08 oxycodone HCl * Allergy Emesis Verified 05/13/19 16:08 [From Percocet] Penicillins Allergy Hives Verified 05/13/19 16:08 aspirin AdvReac Intermediate Epistaxis Verified 05/13/19 16:08 codeine AdvReac Emesis Verified 05/13/19 16:08 pseudoephedrine HCl * AdvReac Edema Verified 05/13/19 16:08 [From Sudafed] erythromycin eye ointment AdvReac Intermediate swelling Uncoded 11/27/18 20:57 Anes History & Medical History - Anesthetic History Anesthesia Complications: reports: No previous complications Family history of Anesthesia Complications: Denies Family history of Malignant Hyperthermia: Denies - Medical History Cardiovascular: reports: None Pulmonary: reports: None Gastrointestinal: reports: None Urinary: reports: None Neuro: reports: None Musculoskeletal: reports: None Endocrine/Autoimmune: reports: None Blood Disorders: reports: None Skin: reports: None Smoking Status: Never smoker - Surgical History Gynecologic: section Exam General: Alert, Oriented x3, Cooperative Dental: WNL Mouth Openin Fingerbreadth Neck Mobility: Normal Mallampati classification: II Thyromental Distance: 4-6 cm Respiratory: Lungs clear, Normal breath sounds Cardiovascular: Regular rate Neurological: Normal speech Mental/Cognitive Status: Alert/Oriented X3, Normal for patient Cognitive Status: Within normal limits Plan Anesthesia Type: Spinal Consent for Procedure(s) Verified and Reviewed: Yes Code Status: Attempt Resuscitation ASA classification: 2-Mild systemic disease Is this case an emergency?: Yes
[2019-10-26 17:24] LABS: BASOPHILS % (AUTO) 0.3 %; EOSINOPHILS % (AUTO) 0.2 %; HGB - HEMOGLOBIN 11.5 g/dL (12.0-16.0); LYMPHOCYTES # (AUTO) 1.5 10^3/uL (1.5-3.5); LYMPHOCYTES % (AUTO) 17.7 %; MEAN CORPUSCULAR HEMOGLOBIN 28.6 pg (27.0-31.0); MEAN CORPUSCULAR HGB CONC 33.9 g/dL (32.0-36.0); MEAN CORPUSCULAR VOLUME 84.3 fL (81.0-99.0); MONOCYTES # (AUTO) 0.5 10^3/uL (0.0-1.0); MONOCYTES % (AUTO) 5.4 %; NEUTROPHILS # (AUTO) 6.5 10^3/uL (1.5-6.6); NEUTROPHILS % (AUTO) 75.6 %; PLT - PLATELET COUNT 275 10^3/uL (130-450); RED BLOOD COUNT 4.02 10^6/uL (4.20-5.40); RED CELL DISTRIBUTION WIDTH 14.5 % (12.0-15.0); WHITE BLOOD COUNT 8.7 x10^3/uL (4.8-10.8)
--- NOTE | 2019-10-26 17:58 | PREOP HISTORY & PHYSICAL ---
DATE OF SERVICE: 10/26/2019 Physician: Elmer Bradley MD IDENTIFICATION: The patient is a 39-year-old G4, P1, female whose EDC is 11/05/2019. This makes her 38.6 weeks. CHIEF COMPLAINT: Contractions. HISTORY OF PRESENT ILLNESS: The patient states that roughly at 11:00 today, she developed contractio ns that became progressively stronger with time. She has a history of having previous secti on, which involved a T incision. She had a history also of having preeclampsia with her last pregnan cy, has been taking a baby aspirin every 3 days because of stomach irritation. She is also taking se rtraline as well as vitamins. PAST MEDICAL HISTORY: Positive for depression. PAST SURGICAL HISTORY: Positive for section. ALLERGIES: PENICILLIN, CODEINE, DILAUDID, IODINE, BEE STING, ERYTHROMYCIN, OXYCODONE, as well as LAT EX. HABITS: The patient denies use of alcohol, tobacco, street or addictive drugs. SOCIAL HISTORY: The patient is a former smoker, but has quit. PHYSICAL EXAMINATION VITAL SIGNS: Blood pressure 117/72. Pulse is 82. Respirations are 18. HEENT: Pupils are equal and round. Extraocular muscles intact. CARDIOVASCULAR: Regular rate and rhythm without murmurs. LUNGS: Lung diaz are clear without rales or wheezes. BACK: No spinal or CVA tenderness. ABDOMEN: Uterus is gravid, the appropriate size. PELVIC: Cervical examination shows her to be fingertip. She is 50% effaced. She is -2 vertex prese ntation. IMPRESSION 1. A 39-year-old G4, P1 female who is 38 weeks and 6 days. 2. Previous section with T incision, in early labor. 3. History of preeclampsia with normal blood pressures. PLAN: Will perform repeat low transverse section. The patient is requesting tubal ligation at this time. She is aware of the permanence of this procedure. The risks and benefits were explained to the patient including those, but not limited to bleeding, in fection, injury to pelvic organs, which include the uterus, tubes, ovaries, bowel, bladder and ureter s. She is aware of the potential for DVT with PE, as well as postoperative adhesions, which could ca use pain, bowel obstruction. TD: 10/26/2019 17:21
[2019-10-26] MEDS ORDERED: CLINDAMYCIN 900 MG/50 ML 50 ML IV SCH (18:00)
[2019-10-26] MEDS ORDERED: LACTATED RINGERS 1,000 ML IV ONE ×2 (18:03→20:49)
[2019-10-26] MEDS: LACTATED RINGERS 1,000 ML IV ONE ×2 (18:03→19:40)
[2019-10-26] MEDS ORDERED: diphenhydrAMINE 25 MG CAPSULE PO PRN (19:49)
[2019-10-26] MEDS ORDERED: ONDANSETRON 4 MG/2 ML VIAL IVP PRN ×2 (19:49→21:33)
[2019-10-26] MEDS ORDERED: LACTATED RINGERS 1,000 ML IV SCH (20:00)
--- NOTE | 2019-10-26 20:04 | OPERATIVE REPORT ---
Operative Report - General Admit Date: 10/26/19 Procedure Date: 10/26/19 Planned Procedure: repeat LTC/S, bilateral Salpingectomy Pre-Op Diagnosis: 1)38.6 weeks, prior C/S with T incision, requests perminalt sterilzation Procedure Performed: repeat LTC/S, bilateral Salpingectomy Post Op Diagnosis: Same - Procedure Note Primary Surgeon: Elmer Bradley MD Secondary Surgeon: Will Villa DO Anesthesia Provider: Red Duff CRNA Anesthesia Technique: Spinal Pathology: Placenta IV Fluids (mL): 1,700 Estimated Blood Loss (mL): 700 Urine Output (mL): 200 Indications: Active labor Findings: dense adhesions very thin lower uterine segment Live female Apgars8/9 - Other Other Information/Narrative: [id number]
[2019-10-26] MEDS ORDERED: diphenhydrAMINE INJ 50 MG/ML VIAL IVP PRN (21:39)
[2019-10-26] MEDS ORDERED: NALOXONE 0.4 MG/ML VIAL IVP PRN (21:55)
--- NOTE | 2019-10-26 23:02 | OPERATIVE REPORT ---
DATE OF SERVICE: 10/26/2019 Physician: Elmer Bradley MD PREOPERATIVE DIAGNOSES 1. 38.6 weeks. 2. Previous section with T incision. 3. Early labor. 4. Requests permanent sterilization. POSTOPERATIVE DIAGNOSES 1. 38.6 weeks. 2. Previous section with T incision. 3. Early labor. 4. Requests permanent sterilization. PROCEDURE PERFORMED: Repeat low transverse section, with lysis of abdominal adhesions and b ilateral salpingectomy. SURGEON: Elmer Bradley MD. WRAPPING MACHINE HELPER: Will Villa DO. ANESTHESIA: Red Duff CRNA. ANESTHETIC: Spinal. IV FLUIDS: 1700 mL ESTIMATED BLOOD LOSS: 700 mL URINE OUTPUT: 200 mL FINDINGS: Upon entering the abdominal cavity, there was evidence of very dense adhesions to the uter us, as well lower uterine segment. The lower uterine segment was very thin, with the ability to see vernix through the uterine wall. There were also adhesions of the left adnexa, as well as very numer ous adhesions to the adnexa. At time of procedure, the infant was noted to be right occiput posterio r, nuchal cord x1. DESCRIPTION OF PROCEDURE: Following adequate spinal anesthesia, patient was placed in the supine pos ition with a roll under the right hip. At this point, a Schmid catheter was placed under sterile cond itions. She was then prepped and draped in the usual fashion. Following a timeout, which concerns w ere addressed, the procedure was commenced. At this time, the old scar was excised and then the inci francisca was carried down to the fascia. The fascia was incised transversely and carried laterally. At this point, the rectus fascia was dissected free from the rectus abdominis, both superiorly and anter iorly. The rectus was noted to be very much tightly approximated and this was split along the midlin e. Peritoneum was entered high to avoid injury to the bowel or bladder. At this point, the bladder was stuck very high to the anterior peritoneum, as well as over the incision itself. The lower uteri ne segment was very thin. There was evidence of a previous T incision. At this point, there was ble eding encountered from the left uterine vessel arcade. These were treated with ndomen-tl-ljewj of 0 Vicryl. Good hemostasis was observed. At this point, a low transverse uterine incision was accompli shed using a #10 blade, bandage scissors, as well as finger spread technique. The head of the infant was noted to be occiput posterior. The hand was inserted in the pelvis. The head was rotated anter ior and delivered. There was a nuchal cord noted at this time and reduced. The remainder of the inf ant was delivered without difficulty. Cord was doubly clamped and the was handed to the nurse ry team that was standing by. Cord blood samples were obtained, following notice that the was Apgars of 8 and 9. At this point, the placenta was spontaneous delivered. The uterus was exteriori zed, wrapped in a moist lap, cleansing the internal portion with dry lap. There was evidence of a T, which extended down through the cervix. This was closed utilizing 0 Vicryl in a running locking sut ure. The incision itself was closed utilizing 0 Vicryl running locking suture with an imbricating la [place] of 0 Vicryl. Care was taken to try to avoid any sutures being placed into the bladder. At this point, the uterus was tipped forward. The right fallopian tube was identified, and then the filmy ad hesions were divided. A LigaSure was then utilized to excise the fallopian tube, starting in an ante grade fashion starting at the uterus and extending all the way to the fimbriated end. There was some oozing noted on the right hand side and it was treated with qhieoz-jh-yfnrpl of 2-0 Vicryl. Good he mostasis was observed. The left fallopian tube was noted to be very adhered with filmy adhesions. T his was divided using Metzenbaum scissors. The fimbriated end was grasped and then utilizing LigaSur e. This was clamped, divided, and cauterized. This was carried all the way up to the cornua. There was evidence of good hemostasis on the mesosalpinx. At this point, the cul-de-sac was irrigated. T he uterus was delivered back in the abdominal cavity. The gutters were inspected for bleeding. Ther e was mild oozing noted on the left parametrium area. This was treated with a vsspyj-dg-pbchr of 0 V icryl. Care was taken to avoid any injury to the ureters. At this point, the pelvis was irrigated. No further bleeding was noted, so the rectus and peritoneum were closed en bloc with 2-0 Vicryl. At this point, the rectus was inspected. No bleeding noted, so the fascia was closed utilizing looped PDS. The subcutaneous tissue was cauterized and then this was closed in 2 layers utilizing 2-0 Vicry l and then the incision itself was closed utilizing 4-0 Monocryl. Then, a wound VAC was placed. At this point, the uterus was expressed. No further clot was noted. The patient tolerated the procedur e well and was taken to recovery in stable condition. Sponge and needle counts were correct. TD: 10/26/2019 20:16
[2019-10-26] MEDS: ACETAMINOPHEN 500 MG TABLET PO SCH (23:05)
[2019-10-27] MEDS ORDERED: SODIUM CHLORIDE FLUSH 0.9% 10 ML SYRINGE IVP SCH (01:00)
[2019-10-27] MEDS: HYDROcod/ACETAM 5/325 MG TABLET PO PRN ×3 (01:37→14:40)
[2019-10-27] MEDS: KETOROLAC 30 MG/ML VIAL IVP SCH ×3 (02:00→14:34)
[2019-10-27 06:10] LABS: BASOPHILS % (AUTO) 0.3 %; EOSINOPHILS % (AUTO) 0.2 %; HGB - HEMOGLOBIN 8.4 g/dL (12.0-16.0); LYMPHOCYTES # (AUTO) 1.3 10^3/uL (1.5-3.5); LYMPHOCYTES % (AUTO) 12.9 %; MEAN CORPUSCULAR HEMOGLOBIN 28.6 pg (27.0-31.0); MEAN PLATELET VOLUME 8.7 fL (7.9-10.8); MONOCYTES # (AUTO) 0.5 10^3/uL (0.0-1.0); MONOCYTES % (AUTO) 4.7 %; NEUTROPHILS # (AUTO) 8.2 10^3/uL (1.5-6.6); NEUTROPHILS % (AUTO) 81.4 %; PLT - PLATELET COUNT 209 10^3/uL (130-450); RED BLOOD COUNT 2.94 10^6/uL (4.20-5.40); RED CELL DISTRIBUTION WIDTH 14.4 % (12.0-15.0); WHITE BLOOD COUNT 10.1 x10^3/uL (4.8-10.8)
[2019-10-27] MEDS: ACETAMINOPHEN 500 MG TABLET PO SCH ×2 (07:08→16:24)
[2019-10-27] MEDS: DOCUSATE SODIUM 100 MG CAPSULE PO SCH ×2 (08:36→21:05)
--- NOTE | 2019-10-27 10:15 | PROVIDER PROGRESS NOTE ---
Subjective - General Admit Date: 10/26/19 Procedure Date: 10/26/19 Post Op Days: 1 Procedure Performed: RLTC/S with bilateral salpingectomy - Review of Systems Wound/Incisions: positive: Dressing dry and intact (wound vac constantly running. wound closed in layers.) General: positive: No symptoms. negative: Fever Pulmonary: positive: No symptoms Cardiovascular: positive: No symptoms Gastrointestinal: negative: Flatus Genitourinary: positive: No symptoms Musculoskeletal: positive: No symptoms Skin: positive: Puritis Objective - Patient Data Reviewed Vital Signs: Yes Vital Signs: Vital Signs x48h Temp Pulse Resp BP Pulse Ox 10/27/19 08:42 36.5 C 81 18 115/68 95 10/27/19 04:55 37.1 C 81 16 124/76 96 Weight: Weight 10/25/19 10/26/19 10/27/19 23:59 23:59 23:59 Weight (kg) 77.111 kg 77.111 kg Intake & Output: Intake and Output Totals x24h 10/25/19 10/26/19 10/27/19 23:59 23:59 23:59 Output Total 650 390 Balance -650 -390 - Lab Results Lab Results: 10/27/19 06:06 Other Lab Results: Lab Results x24hrs 10/27/19 10/26/19 10/26/19 Range/Units 06:06 17:18 17:18 WBC 10.1 8.7 (4.8-10.8) x10^3/uL RBC 2.94 L 4.02 L (4.20-5.40) 10^6/uL Hgb 8.4 L 11.5 L (12.0-16.0) g/dL Hct 24.7 L 33.9 L (37.0-47.0) % MCV 84.0 84.3 (81.0-99.0) fL MCH 28.6 28.6 (27.0-31.0) pg MCHC 34.0 33.9 (32.0-36.0) g/dL RDW 14.4 14.5 (12.0-15.0) % Plt Count 209 275 (130-450) 10^3/uL MPV 8.7 9.0 (7.9-10.8) fL Neut # (Auto) 8.2 H 6.5 (1.5-6.6) 10^3/uL Lymph # (Auto) 1.3 L 1.5 (1.5-3.5) 10^3/uL [place] # (Auto) 0.5 0.5 (0.0-1.0) 10^3/uL Eos # (Auto) 0.0 0.0 (0.0-0.7) 10^3/uL Baso # (Auto) 0.0 0.0 (0.0-0.1) 10^3/uL Absolute Nucleated RBC 0.00 0.00 x10^3/uL Nucleated RBC % 0.0 0.0 /100WBC Blood Type A POSITIVE Antibody Screen NEGATIVE - Current Medications Current Medications: Current Medications Generic Name Dose Route Start Last Admin Trade Name Freq PRN Reason Stop Dose Admin Acetaminophen 1,000 mg 10/26/19 20:00 10/27/19 07:08 Tylenol PO 1,000 mg Q8H JACOB Administration Hydrocodone Bitart/Acetaminophen 1 tab 10/27/19 01:13 10/27/19 01:37 [place] 5/325 PO 1 tab Q4HR PRN Administration PAIN Diphenhydramine HCl 25 mg 10/26/19 19:49 10/27/19 07:13 Benadryl PO 25 mg Q6H PRN Administration ITCHING Diphenhydramine HCl 25 mg 10/26/19 21:39 10/26/19 21:57 Benadryl Inj IVP 25 mg Q6H PRN Administration ITCHING Docusate Sodium 100 mg 10/26/19 21:00 10/27/19 08:36 Colace 100mg Capsule PO 100 mg BID JACOB Administration Lactated Ringer's 1,000 mls @ 100 mls/hr 10/26/19 20:00 10/26/19 22:30 Lr IV 100 mls/hr .Q10H JACOB Administration Ketorolac Tromethamine 30 mg 10/26/19 20:00 10/27/19 08:36 Toradol Inj (30mg) IVP 10/27/19 14:01 30 mg Q6H JACOB Administration - Physical Exam Wound/Incisions: positive: Dressing dry and intact General Appearance: positive: No acute distress, Alert Respiratory: positive: Chest non-tender, No respiratory distress Cardiovascular: positive: Regular rate & rhythm, No murmur Abdomen: positive: Non-tender, Nml bowel sounds Back: negative: CVA tenderness (R), CVA tenderness (L) Extremities: negative: Calf tenderness, Narciso's sign/cords Neurologic/Psychiatric: positive: Oriented x3 Impression/Plan - Problem List Problem List: POD # 1 progressing Anemia. CBC Itching wiht Hydrocodiene will tyr claritin as it is not sedating If wound vac failes will Remove
[2019-10-27] MEDS: LORATADINE 10 MG TABLET PO SCH (10:20)
[2019-10-27] MEDS: SERTRALINE 50 MG TABLET PO SCH (10:20)
[2019-10-27 12:15] LABS: BASOPHILS % (AUTO) 0.3 %; EOSINOPHILS % (AUTO) 0.3 %; HGB - HEMOGLOBIN 8.7 g/dL (12.0-16.0); LYMPHOCYTES # (AUTO) 1.5 10^3/uL (1.5-3.5); LYMPHOCYTES % (AUTO) 14.6 %; MEAN CORPUSCULAR HEMOGLOBIN 28.5 pg (27.0-31.0); MEAN CORPUSCULAR HGB CONC 33.6 g/dL (32.0-36.0); MEAN CORPUSCULAR VOLUME 84.9 fL (81.0-99.0); MEAN PLATELET VOLUME 8.9 fL (7.9-10.8); MONOCYTES # (AUTO) 0.6 10^3/uL (0.0-1.0); MONOCYTES % (AUTO) 5.8 %; NEUTROPHILS % (AUTO) 78.2 %; PLT - PLATELET COUNT 222 10^3/uL (130-450); RED BLOOD COUNT 3.05 10^6/uL (4.20-5.40); RED CELL DISTRIBUTION WIDTH 14.5 % (12.0-15.0); WHITE BLOOD COUNT 10.2 x10^3/uL (4.8-10.8)
[2019-10-27] MEDS: SODIUM CHLORIDE FLUSH 0.9% 10 ML SYRINGE IVP PRN ×2 (14:35→21:06)
[2019-10-27] MEDS: SIMETHICONE CHEW 80 MG TABLET PO SCH (21:05)
[2019-10-27] MEDS: IBUPROFEN 600 MG TABLET PO SCH (21:06)
[2019-10-28] MEDS: HYDROcod/ACETAM 5/325 MG TABLET PO PRN ×4 (00:08→20:39)
[2019-10-28] MEDS: ACETAMINOPHEN 500 MG TABLET PO SCH ×3 (01:00→12:00)
[2019-10-28] MEDS: IBUPROFEN 600 MG TABLET PO SCH ×3 (04:14→20:38)
[2019-10-28] MEDS: SERTRALINE 50 MG TABLET PO SCH (09:01)
[2019-10-28] MEDS: DOCUSATE SODIUM 100 MG CAPSULE PO SCH ×2 (09:01→20:40)
[2019-10-28] MEDS: LORATADINE 10 MG TABLET PO SCH (09:01)
[2019-10-28] MEDS: SIMETHICONE CHEW 80 MG TABLET PO SCH ×3 (09:02→20:41)
--- NOTE | 2019-10-28 11:47 | PROVIDER PROGRESS NOTE ---
Subjective - General Admit Date: 10/26/19 Procedure Date: 10/26/19 Post Op Days: 2 Procedure Performed: RLTC/S with bilateral salpingectomy - Review of Systems Wound/Incisions: positive: Dressing dry and intact General: positive: No symptoms (Pain 4/10. improved pain control. itching improving). negative: Fever Pulmonary: positive: No symptoms Cardiovascular: positive: No symptoms Gastrointestinal: positive: Flatus Genitourinary: positive: No symptoms Musculoskeletal: positive: No symptoms Skin: positive: Puritis Objective - Patient Data Reviewed Vital Signs: Yes Vital Signs: Vital Signs x48h Temp Pulse Resp BP Pulse Ox 10/28/19 08:12 36.5 C 78 18 121/69 96 10/28/19 04:07 36.7 C 79 16 116/66 95 Weight: Weight 10/26/19 10/27/19 10/28/19 23:59 23:59 23:59 Weight (kg) 77.111 kg 77.111 kg Intake & Output: Intake and Output Totals x24h 10/26/19 10/27/19 10/28/19 23:59 23:59 23:59 Intake Total 1000 10 Output Total 650 1115 350 Balance -650 115 -340 - Lab Results Lab Results: 10/27/19 12:05 Other Lab Results: Lab Results x24hrs 10/27/19 Range/Units 12:05 WBC 10.2 (4.8-10.8) x10^3/uL RBC 3.05 L (4.20-5.40) 10^6/uL Hgb 8.7 L (12.0-16.0) g/dL Hct 25.9 L (37.0-47.0) % MCV 84.9 (81.0-99.0) fL MCH 28.5 (27.0-31.0) pg MCHC 33.6 (32.0-36.0) g/dL RDW 14.5 (12.0-15.0) % Plt Count 222 (130-450) 10^3/uL MPV 8.9 (7.9-10.8) fL Neut # (Auto) 8.0 H (1.5-6.6) 10^3/uL Lymph # (Auto) 1.5 (1.5-3.5) 10^3/uL [place] # (Auto) 0.6 (0.0-1.0) 10^3/uL Eos # (Auto) 0.0 (0.0-0.7) 10^3/uL Baso # (Auto) 0.0 (0.0-0.1) 10^3/uL Absolute Nucleated RBC 0.00 x10^3/uL Nucleated RBC % 0.0 /100WBC - Current Medications Current Medications: Current Medications Generic Name Dose Route Start Last Admin Trade Name Freq PRN Reason Stop Dose Admin Acetaminophen 1,000 mg 10/26/19 20:00 10/28/19 04:28 Tylenol PO 1,000 mg Q8H JACOB Administration Hydrocodone Bitart/Acetaminophen 1 tab 10/27/19 01:13 10/28/19 09:02 [place] 5/325 PO 1 tab Q4HR PRN Administration PAIN Diphenhydramine HCl 25 mg 10/26/19 19:49 10/27/19 07:13 Benadryl PO 25 mg Q6H PRN Administration ITCHING Diphenhydramine HCl 25 mg 10/26/19 21:39 10/26/19 21:57 Benadryl Inj IVP 25 mg Q6H PRN Administration ITCHING Docusate Sodium 100 mg 10/26/19 21:00 10/28/19 09:01 Colace 100mg Capsule PO 100 mg BID JACOB Administration Lactated Ringer's 1,000 mls @ 100 mls/hr 10/26/19 20:00 10/27/19 08:30 Lr IV Infused .Q10H JACOB Infusion Ibuprofen 600 mg 10/27/19 20:30 10/28/19 04:14 Motrin PO 600 mg Q6HR JACOB Administration Loratadine 10 mg 10/27/19 11:00 10/28/19 09:01 Claritin PO 10 mg DAILY JACOB Administration Sertraline HCl 100 mg 10/27/19 09:00 10/28/19 09:01 Zoloft PO 100 mg DAILY JACOB Administration Simethicone 80 mg 10/26/19 22:00 10/28/19 09:02 Mylicon PO 80 mg TID JACOB Administration Sodium Chloride 10 ml 10/26/19 19:49 10/27/19 21:06 Normal Saline Flush 0.9% IVP 10 ml PRN PRN Administration NEEDED PER PROVIDER ORDERS - Physical Exam Wound/Incisions: positive: Dressing dry and intact (wound vac working) Respiratory: positive: Chest non-tender, No respiratory distress Cardiovascular: positive: Regular rate & rhythm, No murmur Abdomen: positive: Nml bowel sounds, No distention Back: negative: CVA tenderness (R), CVA tenderness (L) Extremities: negative: Calf tenderness, Narciso's sign/cords Impression/Plan - Problem List Problem List: POD #2 progressing. Pain control Improving Itching resolved with claritin. Passing flatus Able to void.
[2019-10-28] MEDS ORDERED: MORPHINE PF 5 MG/10 ML AMP EP ONE (13:01)
[2019-10-28] MEDS ORDERED: KETOROLAC 30 MG/ML VIAL IVP ONE (13:24)
[2019-10-28] MEDS ORDERED: ePHEDrine 50 MG/ML VIAL IVP ONE (13:24)
[2019-10-28] MEDS: SODIUM CHLORIDE FLUSH 0.9% 10 ML SYRINGE IVP PRN (20:40)
[2019-10-29] MEDS: IBUPROFEN 600 MG TABLET PO SCH ×3 (02:44→16:47)
[2019-10-29] MEDS: HYDROcod/ACETAM 5/325 MG TABLET PO PRN ×3 (02:48→16:47)
[2019-10-29] MEDS: SERTRALINE 50 MG TABLET PO SCH (10:13)
[2019-10-29] MEDS: SIMETHICONE CHEW 80 MG TABLET PO SCH ×2 (10:13→16:48)
[2019-10-29] MEDS: DOCUSATE SODIUM 100 MG CAPSULE PO SCH (10:14)
[2019-10-29] MEDS: LORATADINE 10 MG TABLET PO SCH (10:14)
--- NOTE | 2019-10-29 10:57 | PROVIDER PROGRESS NOTE ---
Subjective - General Admit Date: 10/26/19 Procedure Date: 10/26/19 Post Op Days: 3 Procedure Performed: RLTC/S with bilateral salpingectomy - Review of Systems Wound/Incisions: positive: Dressing dry and intact (Pt has blisters on the left side of the wound Vav) General: positive: No symptoms (Pain 4/10. improved pain control. itching resolved). negative: Fever Pulmonary: positive: No symptoms Cardiovascular: positive: No symptoms Gastrointestinal: positive: Flatus (Pt has passed stool), Other Genitourinary: positive: No symptoms Musculoskeletal: positive: No symptoms Skin: positive: Puritis Objective - Patient Data Reviewed Vital Signs: Yes Vital Signs: Vital Signs x48h Temp Pulse Resp BP Pulse Ox 10/29/19 08:32 36.6 C 87 20 118/80 96 10/29/19 03:47 37.0 C 85 18 120/71 96 Weight: Weight 10/27/19 10/28/19 10/29/19 23:59 23:59 23:59 Weight (kg) 77.111 kg Intake & Output: Intake and Output Totals x24h 10/27/19 10/28/19 10/29/19 23:59 23:59 23:59 Intake Total 1000 10 Output Total 1115 350 Balance -115 -340 - Lab Results Lab Results: 10/27/19 12:05 - Current Medications Current Medications: Current Medications Generic Name Dose Route Start Last Admin Trade Name Freq PRN Reason Stop Dose Admin Acetaminophen 1,000 mg 10/26/19 20:00 10/28/19 12:00 Tylenol PO Not Given Q8H [facility] Hydrocodone Bitart/Acetaminophen 1 tab 10/27/19 01:13 10/29/19 10:14 [place] 5/325 PO 1 tab Q4HR PRN Administration PAIN Diphenhydramine HCl 25 mg 10/26/19 19:49 10/27/19 07:13 Benadryl PO 25 mg Q6H PRN Administration ITCHING Diphenhydramine HCl 25 mg 10/26/19 21:39 10/26/19 21:57 Benadryl Inj IVP 25 mg Q6H PRN Administration ITCHING Docusate Sodium 100 mg 10/26/19 21:00 10/29/19 10:14 Colace 100mg Capsule PO 100 mg BID JACOB Administration Lactated Ringer's 1,000 mls @ 100 mls/hr 10/26/19 20:00 10/27/19 08:30 Lr IV Infused .Q10H JACOB Infusion Ibuprofen 600 mg 10/27/19 20:30 10/29/19 10:13 Motrin PO 600 mg Q6HR JACOB Administration Loratadine 10 mg 10/27/19 11:00 10/29/19 10:14 Claritin PO 10 mg DAILY JACOB Administration Sertraline HCl 100 mg 10/27/19 09:00 10/29/19 10:13 Zoloft PO 100 mg DAILY JACOB Administration Simethicone 80 mg 10/26/19 22:00 10/29/19 10:13 Mylicon PO 80 mg TID JACOB Administration Sodium Chloride 10 ml 10/26/19 19:49 10/28/19 20:40 Normal Saline Flush 0.9% IVP 10 ml PRN PRN Administration NEEDED PER PROVIDER ORDERS - Physical Exam Wound/Incisions: positive: Dressing dry and intact (removed) Respiratory: positive: Chest non-tender, No respiratory distress, Breath sounds nml Cardiovascular: positive: Regular rate & rhythm, No murmur, No gallop Abdomen: positive: No organomegaly, Nml bowel sounds, No distention, Tenderness (over the incision) Extremities: negative: Calf tenderness, Narciso's sign/cords Neurologic/Psychiatric: positive: Oriented x3 Impression/Plan - Problem List Problem List: Pt is progressing. adiquit pain control tension blisters at the dressing margin. Pt to rx with basitracin ointment Discharge medication [place] # 20 Motrin 800 Colace #60 [place] # 60 Discharge to home RTC 1 week
--- NOTE | 2019-10-29 12:37 | Discharge Plan ---
Discharge Plan Problem Reviewed?: Yes Disposition: Home, Self Care Condition: Good Diet: Regular Shower Restrictions: No Driving Restrictions: Yes (not while on narcotics) Weight Bearing: Full Weight No Smoking: If you smoke, Please STOP! Call for help. Follow-up with: Janelle Hastings PA [Primary Care Provider] -
[2019-10-29 13:08] VITALS: BP 126/80
--- NOTE | 2019-11-02 16:13 | DISCHARGE SUMMARY ---
ORIGINAL SIGNED ON 11/03/2019 @ 1214. MOVED TO CORRECT ACCOUNT ON 11/03/2019. Physician: Elmer Bradley MD DATE OF ADMISSION: 10/26/2019 DATE OF DISCHARGE: 10/29/2019 ADMITTING DIAGNOSES 1. A 39-year-old G4, P1 female at 38-6/7. 2. Prior section with T-incision. 3. Early labor. 4. The patient requests permanent sterilization. DISCHARGE DIAGNOSES 1. A 39-year-old G4, P1 female at 38-6/7. 2. Prior section with T-incision. 3. Early labor. 4. The patient requests permanent sterilization. PROCEDURES: Repeat low transverse section with bilateral salpingectomy. PRESENTING HISTORY: Patient is a 39-year-old G4, P1, female whose due date is 11/05. At time of admission, she was 38-6/7 weeks. She is scheduled for a C- section the following Thursday. She developed strong contractions at 11 o'clock and these became progressively worse and increased in frequency. She has a history of having a previous section with a T-incision. For this reason, she is scheduled for repeat section. She had a history of preeclampsia with previous pregnancies, thus was taking a baby aspirin on a daily basis. PAST MEDICAL HISTORY: Positive for depression, as well as preeclampsia. PAST SURGICAL HISTORY: Previous with incision. ALLERGIES She had multiple allergies to 1. PENICILLIN. 2. CODEINE. 3. DILAUDID. 4. IODINE. 5. BEE STING. 6. ERYTHROMYCIN. 7. OXYCODONE. 8. LATEX. HABITS: Patient denies any drugs, alcohol or tobacco. PHYSICAL EXAMINATION: She was noted to have a cervix, which was 50% effaced, -2 and fingertip, vertex presentation. LABORATORIES: Preop her white count was 8.7, hemoglobin 11.5, hematocrit 33.9, platelets were 275. Postop day #1, her white count remained stable. Her hemoglobin fell to 8.4, platelets were 209. At 12 o'clock the same day, her hemoglobin had stabilized at 8.7, hematocrit was 25.9, platelets were 222. HOSPITAL COURSE: Patient presented to labor and delivery and what appeared to be early labor with a history of having a previous section with T- incision who was decided to proceed with a stat . This was accomplished. At time of delivery. The lower uterine segment was noted to be very thin with a window that you could see vernix prior to the uterine incision. was performed without difficulty. There was some bleeding from the left uterine arcades. These were treated with [id number]-[id number]-[id number] sutures. She had her tubes removed at the same time. Her postoperative course was significant in that her hemoglobin fell to 8.4, but stabilized and rebounded to 8.7. She tolerated these blood levels. She had difficulty with multiple allergies and thus was decided to be placed on hydrocodone. The itching, which was generated was treated initially with Benadryl and then switch to Claritin, which gave her good results. She has recovered at this particular point. She is being discharged to home today with instruction to followup in the clinic in 1 week. DISCHARGE MEDICATIONS 1. [place] #20. 2. Motrin 800 mg. 3. Colace #60. 4. Iron. DISCHARGE INSTRUCTIONS: She has been instructed that should she develop chills, fevers, temperatures greater than 100.4, foul smelling vaginal discharge, breast redness or tenderness that she should call for an earlier evaluation. TD: 11/02/2019 14:07 [place]
== END 2019-10-29 17:15 | disposition home or self-care (01) | DRG 784 ==
LOC: WFO 16:29 → FBP 16:30 → WFO 17:06
PROVIDERS: ADMIT Obstetrics & Gynecology; ATTEND Obstetrics & Gynecology
PROC: 0UT70ZZ Resection of Bilateral Fallopian Tubes, Open Approach (ICD-10-PCS; 2019-10-26)
PROC: 10D00Z1 Extraction of Products of Conception, Low, Open Approach (ICD-10-PCS; principal; 2019-10-26 17:21)
DX: O34.211 Maternal care for low transverse scar from previous cesarean delivery (principal); D62 Acute posthemorrhagic anemia; O75.82 Onset (spontaneous) of labor after 37 completed weeks of gestation but before 39 completed weeks gestation, with delivery by (planned) cesarean section; N85.8 Other specified noninflammatory disorders of uterus; O69.81X0 Labor and delivery complicated by cord around neck, without compression, not applicable or unspecified; O99.344 Other mental disorders complicating childbirth; F32.9 Major depressive disorder, single episode, unspecified; O90.81 Anemia of the puerperium; O99.73 Diseases of the skin and subcutaneous tissue complicating the puerperium; L29.9 Pruritus, unspecified; T40.2X5A Adverse effect of other opioids, initial encounter; Y92.230 Patient room in hospital as the place of occurrence of the external cause; R23.8 Other skin changes; Z79.82 Long term (current) use of aspirin; Z79.899 Other long term (current) drug therapy; Z3A.38 38 weeks gestation of pregnancy; Z37.0 Single live birth; Z30.2 Encounter for sterilization; Z87.898 Personal history of other specified conditions; Z88.5 Allergy status to narcotic agent; Z87.891 Personal history of nicotine dependence
CPT/HCPCS: 36415; 85025; 86850; 86900; 86901; 88302; 88307; 99213; A9270; J1200; J7120

== ENCOUNTER 2020-04-11 14:51 | Outpatient (CLI) | payer MEDICAID ==
[2020-04-11 17:49] LABS: BILIRUBIN,URINE NEGATIVE (NEGATIVE); GLUCOSE, URINE (UA) NEGATIVE (NEGATIVE); KETONES,URINE (UA) TRACE mg/dL (NEGATIVE); LEUKOCYTE ESTERASE, URINE MODERATE (NEGATIVE); NITRITE,URINE NEGATIVE (NEGATIVE); OCCULT BLOOD,URINE TRACE-INTA (NEGATIVE); PROTEIN,URINE 30 mg/dL (NEGATIVE); UROBILINOGEN,URINE 0.2 (NORMAL) E.U./dL (NORMAL)
[2020-04-11 17:55] LABS: CLARITY,URINE CLOUDY (CLEAR)
[2020-04-11 18:09] LABS: AMORPHOUS SEDIMENT,UR Few /LPF; BACTERIA,URINE Many /HPF (None Seen); RBC,URINE 0-5 /HPF (0-5); SQUAMOUS EPITHELIAL CELL,UR MANY Squamous (<= Few)
== END 2020-04-11 23:59 | disposition home or self-care (01) ==
LOC: LAB.WCP 14:51
PROVIDERS: ATTEND Nurse Practitioner Family
DX: R30.0 Dysuria (principal)
CPT/HCPCS: 81001; 81003; 87086

== ENCOUNTER 2020-10-19 22:42 | Emergency (ER) | payer MEDICAID ==
[2020-10-19] MEDS ORDERED: PROPARACAINE 0.5% OPHTH DROPS 15 ML LEFTEYE STA (23:46)
[2020-10-19] MEDS ORDERED: NEOMYCIN/POLYMYX/DEXAMETH OPHTH DROPS 5 ML LEFTEYE STA (23:53)
[2020-10-20 00:04] LABS: BASOPHILS % (AUTO) 0.6 %; EOSINOPHILS # (AUTO) 0.1 10^3/uL (0.0-0.7); EOSINOPHILS % (AUTO) 1.1 %; HGB - HEMOGLOBIN 14.2 g/dL (12.0-16.0); LYMPHOCYTES # (AUTO) 2.2 10^3/uL (1.5-3.5); LYMPHOCYTES % (AUTO) 33.8 %; MEAN CORPUSCULAR HGB CONC 34.6 g/dL (32.0-36.0); MEAN CORPUSCULAR VOLUME 86.5 fL (81.0-99.0); MEAN PLATELET VOLUME 9.3 fL (7.9-10.8); MONOCYTES # (AUTO) 0.5 10^3/uL (0.0-1.0); MONOCYTES % (AUTO) 7.9 %; NEUTROPHILS # (AUTO) 3.7 10^3/uL (1.5-6.6); NEUTROPHILS % (AUTO) 56.3 %; PLT - PLATELET COUNT 301 10^3/uL (130-450); RED BLOOD COUNT 4.74 10^6/uL (4.20-5.40); RED CELL DISTRIBUTION WIDTH 12.6 % (12.0-15.0); WHITE BLOOD COUNT 6.6 x10^3/uL (4.8-10.8)
[2020-10-20 00:23] LABS: ALBUMIN 4.4 g/dL (3.2-5.5); ALBUMIN/GLOBULIN RATIO 1.3 (1.0-2.2); BILIRUBIN,TOTAL 3.5 mg/dL (0.2-1.0); CALCIUM 9.5 mg/dL (8.5-10.3); CREATININE 0.9 mg/dL (0.4-1.0); TOTAL PROTEIN 7.9 g/dL (6.7-8.2)
[2020-10-20] MEDS ORDERED: IOVERSOL 320 100 ML VIAL IVP ONE ×2 (00:23→02:39)
[2020-10-20] MEDS ORDERED: diphenhydrAMINE INJ 50 MG/ML VIAL IVP STA (00:42)
[2020-10-20] MEDS ORDERED: methylPREDNISolone SUCCINATE 125 MG/2 ML VIAL IVP STA (00:42)
--- NOTE | 2020-10-20 00:45 | ED Physician Documentation ---
PD HPI OPHTHO - Stated complaint Stated Complaint: EYE IRRITATION - Chief complaint Chief Complaint: Heent - History obtained from History obtained from: Patient - History of Present Illness Timing - onset: Yesterday Timing - duration: Days (2) Timing - details: Gradual onset, Still present Location: Left Associated symptoms: Redness, Swelling, Tearing, Discharge. No: Double vision, Decreased vision, Loss of vision, Headache Contributing factors: FB (removed an eyelash from the eye yesterday) Similar symptoms before: Diagnosis (conjunctivitits) Recently seen: Not recently seen - Additional information Additional information: 40-year-old female states yesterday she got an eyelash out of the left eye and since that time she has had some trouble with redness and swelling and this has become dramatically worse overnight. She has some drainage especially from the lateral aspect of the eye and she feels like she is getting worms out of the eye. She has noted swelling and redness down into her cheek. She denies pain to the eye itself and she does have some stinging when she moves her eye around but is able to do this without much trouble. She does have some dramatic swelli ng of her face and drainage. She has not had fever.She has had conjunctivitis previously noted in our chart from 7 years ago bilaterally. She states that she has had this issue with getting eyelashes in her eyes all of her life and she has never had this issue with the way her eye is swelling today. Review of Systems Constitutional: denies: Fever Eyes: reports: Discharge, Irritation. denies: Decreased vision Ears: denies: Ear pain Nose: reports: Congestion. 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 - Present Medications Home Medications: Ambulatory Orders Medication Instructions Recorded Confirmed Sertraline [Zoloft] 30 mg PO DAILY 10/08/18 10/19/20 Cefdinir 300 mg PO BID #20 capsule 10/20/20 Sulfamethox/Trimeth 800/160 1 each PO BID #14 tablet 10/20/20 [Bactrim Ds] - Allergies Allergies/Adverse Reactions: Allergies Allergy/AdvReac Type Severity Reaction Status Date / Time hydromorphone HCl * Allergy Nausea Verified 05/13/19 16:08 [From Dilaudid] iodine Allergy Respiratory Verified 05/13/19 16:08 latex Allergy Hives Verified 05/13/19 16:08 oxycodone HCl * Allergy Emesis Verified 05/13/19 16:08 [From Percocet] Penicillins Allergy Hives Verified 05/13/19 16:08 aspirin AdvReac Intermediate Epistaxis Verified 05/13/19 16:08 codeine AdvReac Emesis Verified 05/13/19 16:08 pseudoephedrine HCl * AdvReac Edema Verified 05/13/19 16:08 [From Sudafed] erythromycin eye ointment AdvReac Intermediate swelling Uncoded 11/27/18 20:57 - Social History Does the pt smoke?: No Smoking Status: Never smoker Does the pt drink ETOH?: Yes Does the pt have substance abuse?: Yes - Immunizations Immunizations are current?: Yes - POLST Patient has POLST: No PD ED PE NORMAL - Vitals Vital signs reviewed: Yes (tachy) - General General: Alert and oriented X 3, Well developed/nourished, Other (appaers anxious ) - HEENT HEENT: Atraumatic, PERRL, EOMI, Other (There is swelling and erythema to the left face from the maxillary sinus to the eyebrow and there is swelling of the upper lid as well as chemosis present and there is some drainage especially from the lateral aspect of the eye. There is no proptosis. There are no worms vis ualized.) - Neck Neck: Supple, no meningeal sign, No bony TTP - Cardiac Cardiac: No murmur, Other (tachy to 100) - Respiratory Respiratory: No respiratory distress, Clear bilaterally - Abdomen Abdomen: Soft, Non tender - Back Back: No CVA TTP, No spinal TTP - Derm Derm: Normal color, Warm and dry, No rash - Extremities Extremities: No deformity, No edema - Neuro Neuro: Alert and oriented X 3, financial compliance examiner 2-12 intact, No motor deficit, No sensory deficit, Normal speech Eye Opening: Spontaneous Motor: Obeys Commands Verbal: Oriented GCS Score: 15 - Psych Psych: Normal mood, Normal affect Results - Vitals Vitals: Vital Signs - 24 hr 10/19/20 10/20/20 22:45 03:05 Temperature 36.5 C 36.1 C L Heart Rate 105 H 74 Respiratory 16 16 Rate Blood Pressure 97/64 113/72 O2 Saturation 100 98 Oxygen O2 Source Room air - Labs Labs: Microbiology 10/19/20 23:50 Wound Culture - Preliminary Drainage Laboratory Tests 10/20/20 10/20/20 00:00 00:00 WBC 6.6 RBC 4.74 Hgb 14.2 Hct 41.0 MCV 86.5 MCH 30.0 MCHC 34.6 RDW 12.6 Plt Count 301 MPV 9.3 Neut # (Auto) 3.7 Lymph # (Auto) 2.2 Finney # (Auto) 0.5 Eos # (Auto) 0.1 Baso # (Auto) 0.0 Absolute Nucleated RBC 0.00 Nucleated RBC % 0.0 Sodium 140 Potassium 3.4 L Chloride 105 Carbon Dioxide 26 Anion Gap 9.0 BUN 14 Creatinine 0.9 Estimated GFR (MDRD) 70 L Glucose 95 Calcium 9.5 Total Bilirubin 3.5 H AST 25 ALT 29 Alkaline Phosphatase 122 H Total Protein 7.9 Albumin 4.4 Globulin 3.5 Albumin/Globulin Ratio 1.3 Lipase 39 - Rads (name of study) CT orbits with Radiology: Prelim report reviewed (Impression: Preseptal periorbital cellulitis on the left.), EMP read indepedently, See rad report PD MEDICAL DECISION MAKING - ED course Complexity details: reviewed old records, reviewed results, re-evaluated patient, considered differential, d/w patient ED course: 40-year-old female presents to the emergency department with swelling and ecchymosis of the left periorbital tissues with swelling to the face. She appears to have some periorbital cellulitis and there is concern about orbital cellulitis bercause of the appearance of chimosis. A CT scan of the orbits with contrast is obtained and is reassuring for preseptal cellulitis versus orbital cellulitis. The patient does have chemosis and here in the emergency department her eyes are irrigated with a liter of saline after administration of Alcaine and she is subsequently administered 4 drops of Maxitrol ophthalmic drops. She is taken over the the CT scanner because of the dramatic appearance of the eye to rule out orbital cellulitis. She requires IV SOLUMEDROL and benadryl for a prior reaction to contrast. The patient request to go home and does not want to be admitted to the hospital. She has a normal white blood cell count and she has responded to treatment with improvement in her chemosis with the rinsing of the eye. The reassuring finding on the CT scan that this is a preseptal cellulitis gives the opportunity to do outpatient management. She is administered a gram of Rocephin intravenously as well as 600 mg of clindamycin. We will place her on cefdinir and Septra as an outpatient. Departure - Departure Disposition: 01 Home, Self Care Clinical Impression: Periorbital cellulitis of left eye Condition: Stable Instructions: ED Cellulitis Amy Orbital Follow-Up: Janelle Hastings PA [Primary Care Provider] - Francis Mccullough MD [Provider Admit Priv/Credential] - Prescriptions: Sulfamethox/Trimeth 800/160 [Bactrim Ds] 1 each PO BID #14 tablet Cefdinir 300 mg PO BID #20 capsule Comments: Today it appears you have periorbital cellulitis or infection in the skin skin around the outside of your eye. We are placing you on oral antibiotics with the intention that you have improvement over the next 24 to 48 hours. You were given 2 doses of intravenous antibiotic here in the emergency department as well. If you have worsening of your condition despite initiation of treatment follow-up promptly by returning to the emergency department or following up with the medical diagnostic radiographer. Discharge Date/Time: 10/20/20 03:05
[2020-10-20] MEDS ORDERED: cefTRIAXone 1 GM in SODIUM CHLORIDE 0.9% MINIBAG 100 ML IV STA (01:41)
[2020-10-20] MEDS ORDERED: CLINDAMYCIN 600 MG/50 ML 50 ML IV ONE (01:42)
[2020-10-20] MEDS ORDERED: cefTRIAXone 1 GM VIAL ONE (01:54)
[2020-10-20 03:12] VITALS: BP 113/72
--- NOTE | 2020-10-20 10:07 | CT Report ---
PROCEDURE: ORBITS W INDICATIONS: cellulitis CONTRAST: IV CONTRAST: Optiray 320 ml: 100 PO CONTRAST: *NO PO CONTRAST TECHNIQUE: After the administration of intravenous contrast, 3.0 mm axial images acquired through the orbits, wi th coronal reformatting. COMPARISON: None FINDINGS: Image quality: Excellent. Orbits: Globes are symmetrical. The optic nerves are normal in size and enhancement. No retrobulba r masses or fat abnormalities. The extra-ocular muscles are normal and symmetrical in appearance. L acrimal glands are normal and symmetric. Optic chiasm is normal. Soft tissue swelling is seen, particularly involving the superior left cheek. No focal fluid collecti on can be seen to suggest abscess. Intracranial: The pituitary gland is normal, without sellar or suprasellar masses. Visualized cereb ral hemispheres, brainstem, and spinal cord appear normal. Bones and sinuses: Visualized calvarium and facial bones appear intact. A small mucous retention cy st is seen within the inferior left maxillary sinus. Visualized sinuses and mastoids otherwise are cl ear. IMPRESSION: No intraorbital abnormality can be seen. No postseptal infection. Left periorbital cellulitis can be seen, without an abscess identified. Note: No significant discrepancy from the preliminary report. Reviewed by: Dante Valdez MD on 10/20/2020 9:06 AM [facility] Approved by: Dante Valdez MD on 10/20/2020 9:06 AM [facility] Station ID: [id number]
== END 2020-10-20 03:05 | disposition home or self-care (01) ==
LOC: ED 22:42
DX: L03.213 Periorbital cellulitis (principal); H11.422 Conjunctival edema, left eye; Z91.041 Radiographic dye allergy status
CPT/HCPCS: 36415; 70481; 80053; 83690; 85025; 87070; 87205; 96365; 96367; 96375; 99284; 99285; J1200; J3490; Q9967

== ENCOUNTER 2021-03-01 20:16 | Emergency (ER) | payer MEDICAID ==
[2021-03-01 20:36] VITALS: BP 113/85
--- OUTSIDE RECORDS SUMMARY | 2021-03-01 20:56 | EXTERNAL MEDICAL SUMMARY RPT | Continuity of Care Document ---
:1980 Demographics Phone Unavailable Preferred Language Unknown Marital Status Unknown Tenriism Affiliation Unknown Race Unknown Ethnic Group Unknown Author Organization [facility] Address [address] [place] [address] Phone Social History date description facility [id number]
== END 2021-03-01 20:59 | disposition left against medical advice (07) ==
LOC: ED 20:16
DX: Z53.21 Procedure and treatment not carried out due to patient leaving prior to being seen by health care provider (principal)

== ENCOUNTER 2021-10-05 17:55 | Emergency (ER) | payer MEDICAID ==
[2021-10-05] MEDS ORDERED: HYDROcod/ACETAM 5/325 MG TABLET PO STA (18:03)
--- NOTE | 2021-10-05 18:04 | ED Physician Documentation ---
PD HPI UPPER EXT INJURY - Stated complaint Stated Complaint: RT ELBOW INJ - History obtained from History obtained from: Patient (41-year-old woman hit her right elbow on a door frame September 09 and has persistent pain there. Pain is on the lateral side of the right elbow. A lot of pain with supination as well. Despite allowing several weeks and trying ibuprofen pain is still severe. 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 - Present Medications Home Medications: Ambulatory Orders Medication Instructions Recorded Confirmed HYDROcod/ACETAM 5/325 [Allison 5/325] 1 - 2 tab PO Q6H PRN #10 tablet 10/05/21 - Allergies Allergies/Adverse Reactions: Allergies Allergy/AdvReac Type Severity Reaction Status Date / Time hydromorphone HCl * Allergy Nausea Verified 10/05/21 18:03 [From Dilaudid] iodine Allergy Respiratory Verified 10/05/21 18:03 latex Allergy Hives Verified 10/05/21 18:03 oxycodone HCl * Allergy Emesis Verified 10/05/21 18:03 [From Percocet] Penicillins Allergy Hives Verified 10/05/21 18:03 aspirin AdvReac Intermediate Epistaxis Verified 10/05/21 18:03 codeine AdvReac Emesis Verified 10/05/21 18:03 pseudoephedrine HCl * AdvReac Edema Verified 10/05/21 18:03 [From Sudafed] erythromycin eye ointment AdvReac Intermediate swelling Uncoded 10/05/21 18:03 - Social History Does the pt smoke?: No Smoking Status: Never smoker Does the pt drink ETOH?: Yes Does the pt have substance abuse?: Yes - Immunizations Immunizations are current?: Yes - POLST Patient has POLST: No PD ED PE NORMAL - Vitals Vital signs reviewed: Yes - General General: Alert and oriented X 3, No acute distress - Extremities Extremities: Other (Mild tenderness over the lateral epicondyle of the right elbow. Cannot straighten it all the way. A lot of pain with supination but not pronation. Flexion is relatively painless.) - Neuro Neuro: Alert and oriented X 3, Normal speech Results - Vitals Vitals: Vital Signs - 24 hr 10/05/21 18:03 Temperature 36.5 C Heart Rate 100 Respiratory 16 Rate Blood Pressure 131/98 H O2 Saturation 100 Oxygen O2 Source Room air PD MEDICAL DECISION MAKING - ED course ED course: Three-view x-ray of the right elbow interpreted contemporaneously by me is normal. 41-year-old woman with persistent pain after hitting her right elbow almost a month ago. Placed in a sling for comfort but advised the need to do range of motion exercises. Departure - Departure Disposition: Home, Self Care Clinical Impression: Contusion of right elbow Condition: Good Record reviewed to determine appropriate education?: Yes Instructions: ED Contusion Elbow Prescriptions: HYDROcod/ACETAM 5/325 [Allison 5/325] 1 - 2 tab PO Q6H PRN #10 tablet PRN Reason: Pain Comments: X-ray was normal. Prescription sent electronically to [facility] in [place]. When pain is not too bad, try to just use Tylenol or ibuprofen. You can ice it as well. Follow-up with your doctor in a week if not improving, return for new or worsening symptoms. As far as the sling goes make sure to come out of it a few times a day to do gentle range of motion exercises especially of the right shoulder. I am prescribing a short course of narcotic pain medication for you. These are potentially dangerous and addictive medications that should be used carefully. These medications may constipate you. Take an meau-tsf-zbtcxbd stool softener (docusate) twice daily with plenty of water while taking these medications. If you go 24 hours without a bowel movement, take [id number] miralax, per package instructions. Do not drink or drive while taking these medications. If you received narcotic or sedating medications while in the emergency department, do not drive for 24 hours. Store this medication in a safe, secure place and out of reach of children. It is a violation of federal law to give or sell this medication to another person or to use in a manner other than prescribed. The ED will not refill narcotic prescriptions, including prescriptions lost or stolen. To dispose of unwanted medications: 1. [facility] at [address] in [place] has a medication drop box. They accept prescription medications (in pill form) Thursday through Thursday 9:00 a.m. to 5:00 p.m. 2. The [facility] accepts prescription medications (in pill form only) for disposal year round. Call for more information. 3. Contact the [facility] for the next [facility] sponsored prescription drug collection event. , [phone], or [phone]; Note that many narcotic pain relievers also contain Tylenol/acetaminophen. Please ensure that your total dose of acetaminophen from all sources does not exceed 3 g (3000 mg) per day.
[2021-10-05 18:10] VITALS: BP 131/98
--- NOTE | 2021-10-05 18:33 | XRAY Report ---
PROCEDURE: Elbow 3 View RT INDICATIONS: elbow pain TECHNIQUE: 3 views of the elbow were acquired. COMPARISON: None. FINDINGS: Bones: No acute fractures or dislocations. No suspicious bony lesions. Soft tissues: No elbow joint effusion. No suspicious soft tissue calcifications. IMPRESSION: No acute osseous abnormality. If there is clinical concern or persistent symptoms, additional imaging such as repeat radiographs or advanced imaging (e.g. CT, MRI) may be helpful for further evaluation. Reviewed by: Harjit Hernández MD on 10/05/2021 6:31 PM PST Approved by: Harjit Hernández MD on 10/05/2021 6:31 PM [facility] Station ID: [id number]
== END 2021-10-05 18:47 | disposition home or self-care (01) ==
LOC: ED 17:55
DX: S50.01XA Contusion of right elbow, initial encounter (principal); W22.8XXA Striking against or struck by other objects, initial encounter
CPT/HCPCS: 73080; 99283; A9270

== ENCOUNTER 2021-11-26 08:00 | Outpatient (CLI) | payer MEDICAID | END 2021-11-26 23:59 | disposition home or self-care (01) | LOC: LAB.WCP 08:00 | PROVIDERS: ATTEND Nurse Practitioner | DX: G43.909 Migraine, unspecified, not intractable, without status migrainosus (principal); Z20.822 Contact with and (suspected) exposure to COVID-19 ==

== ENCOUNTER 2021-12-09 07:00 | Outpatient (CLI) | payer MEDICAID ==
[2021-12-09 18:38] LABS: BASOPHILS # (AUTO) 0.1 10^3/uL (0.0-0.1); BASOPHILS % (AUTO) 1.1 %; EOSINOPHILS # (AUTO) 0.1 10^3/uL (0.0-0.7); EOSINOPHILS % (AUTO) 1.1 %; HCT - HEMATOCRIT 41.8 % (37.0-47.0); HGB - HEMOGLOBIN 14.5 g/dL (12.0-16.0); LYMPHOCYTES # (AUTO) 2.2 10^3/uL (1.5-3.5); LYMPHOCYTES % (AUTO) 47.1 %; MEAN CORPUSCULAR HEMOGLOBIN 29.8 pg (27.0-31.0); MEAN CORPUSCULAR HGB CONC 34.7 g/dL (32.0-36.0); MEAN PLATELET VOLUME 9.3 fL (7.9-10.8); MONOCYTES # (AUTO) 0.4 10^3/uL (0.0-1.0); MONOCYTES % (AUTO) 7.8 %; NEUTROPHILS % (AUTO) 42.5 %; PLT - PLATELET COUNT 275 10^3/uL (130-450); RED BLOOD COUNT 4.86 10^6/uL (4.20-5.40); RED CELL DISTRIBUTION WIDTH 12.6 % (12.0-15.0); WHITE BLOOD COUNT 4.6 x10^3/uL (4.8-10.8)
[2021-12-09 19:15] LABS: % IRON SATURATION 17 % (20-50); ALBUMIN 4.2 g/dL (3.2-5.5); ALBUMIN/GLOBULIN RATIO 1.4 (1.0-2.2); ALKALINE PHOSPHATASE 109 IU/L (42-121); ALT ALANINE AMINOTRANSFERASE 16 IU/L (10-60); AST ASPARTATE AMINOTRANSFERASE 16 IU/L (10-42); BILIRUBIN,TOTAL 0.7 mg/dL (0.2-1.0); BUN - BLOOD UREA NITROGEN 9 mg/dL (6-20); CALCIUM 9.1 mg/dL (8.5-10.3); CARBON DIOXIDE - CO2 27 mmol/L (21-32); CHLORIDE 104 mmol/L (101-111); CHOL/HDL RATIO 3.6 (<4.4); CHOLESTEROL 148 mg/dL; CREATININE 0.7 mg/dL (0.4-1.0); GFR - MDRD 93 (>89); GLUCOSE 99 mg/dL (70-100); HDL CHOLESTEROL 41 mg/dL; IRON 62 ug/dL (28-170); LDL CHOLESTEROL,CALCULATED 86 mg/dL; LDL/HDL RATIO 2.1 (<4.4); POTASSIUM 4.2 mmol/L (3.5-5.0); SODIUM 137 mmol/L (135-145); TOTAL IRON BINDING CAPACITY 361 ug/dL (250-450); TOTAL PROTEIN 7.1 g/dL (6.7-8.2); TRANSFERRIN 258 mg/dL (192-382); TRIGLYCERIDES 107 mg/dL; VLDL CHOLESTEROL 21 mg/dL
[2021-12-09 19:17] LABS: BILIRUBIN,URINE NEGATIVE (NEGATIVE); GLUCOSE, URINE (UA) NEGATIVE (NEGATIVE); KETONES,URINE (UA) NEGATIVE (NEGATIVE); LEUKOCYTE ESTERASE, URINE NEGATIVE (NEGATIVE); NITRITE,URINE NEGATIVE (NEGATIVE); OCCULT BLOOD,URINE TRACE-INTA (NEGATIVE); PROTEIN,URINE NEGATIVE (NEGATIVE); UROBILINOGEN,URINE 0.2 (NORMAL) E.U./dL (NORMAL)
[2021-12-09 19:24] LABS: THYROID STIMULATING HORMONE 2.93 uIU/mL (0.34-5.60)
[2021-12-09 19:26] LABS: BACTERIA,URINE None Seen /HPF (None Seen); CLARITY,URINE CLEAR (CLEAR); RBC,URINE 0-5 /HPF (0-5); SQUAMOUS EPITHELIAL CELL,UR RARE Squamous (<= Few); WBC,URINE 0-3 /HPF (0-5)
[2021-12-09 19:30] LABS: FERRITIN 13.2 ng/mL (11.0-306.8)
== END 2021-12-09 23:59 | disposition home or self-care (01) ==
LOC: LAB.WCP 07:00
PROVIDERS: ATTEND Nurse Practitioner
DX: R53.83 Other fatigue (principal); Z13.220 Encounter for screening for lipoid disorders; D64.9 Anemia, unspecified
CPT/HCPCS: 36415; 80050; 80061; 81001; 82728; 83540; 83721; 84466; 87086

== ENCOUNTER 2021-12-20 11:57 | Outpatient (CLI) | payer MEDICAID ==
--- NOTE | 2021-12-20 13:37 | XRAY Report ---
PROCEDURE: Hips 2V BILAT INDICATIONS: POSTTRAUMATIC DJD OF BILAT HIPS TECHNIQUE: AP and frog-leg lateral views of the hip were acquired. COMPARISON: None FINDINGS: Bones: No fractures or dislocations. No suspicious bony lesions. The visualized pelvic ring appear s intact. Soft tissues: No suspicious soft tissue calcifications or masses. IMPRESSION: Bilateral hip and pelvis without acute fracture or malalignment. No significant degenerative changes seen. Reviewed by: Babak Abad MD on 12/20/2021 1:36 PM PST Approved by: Babak Abad MD on 12/20/2021 1:36 PM PST Station ID: [id number]
--- NOTE | 2021-12-20 15:59 | XRAY Report ---
PROCEDURE: Lumbar Spine 2 View INDICATIONS: LOWER BACK PAIN TECHNIQUE: 2 views of the lumbar spine were acquired. COMPARISON: None. FINDINGS: Bones: 5 [id number] vertebrae are present. There is normal bony alignment. Tiny vertebral body osteophytes. No vertebral body compression fractures. No suspicious bony lesions. Soft tissues: Overlying bowel gas pattern is normal. No suspicious soft tissue calcifications. IMPRESSION: Minimal degenerative change. Reviewed by: Rafi Silva MD on 12/20/2021 3:58 PM [facility] Approved by: Rafi Silva MD on 12/20/2021 3:58 PM [facility] Station ID: [id number]
== END 2021-12-20 11:58 | disposition home or self-care (01) ==
LOC: DI 11:57
PROVIDERS: ATTEND Nurse Practitioner
DX: M16.4 Bilateral post-traumatic osteoarthritis of hip (principal); M47.816 Spondylosis without myelopathy or radiculopathy, lumbar region

== ENCOUNTER 2022-01-16 | Outpatient (CLI) | payer MEDICAID ==
--- NOTE | 2022-01-16 16:50 | Ultrasound Report ---
PROCEDURE: Pelvic w/Transvaginal INDICATIONS: ABN UTERINE BLEEDING TECHNIQUE: Real-time scanning was performed of the pelvic organs, with image documentation. Additional endovagi nal scanning was necessary due to incomplete visualization of the adnexal and endometrial structures by transabdominal scanning. COMPARISON: None. FINDINGS: No pathologic free abdominal or pelvic fluid. Uterus: Uterus is normal in size at 9.0 x 4.2 x 5.1 cm. Uterine volume is 100.5 mL. The endometrium measures 13.3 mm in combined thickness. Ovaries: Right ovary measures 4.9 x 1.9 x 2.6 cm with a volume of 12.9 mL. It contains a 1.8 cm maxi mum diameter cyst. The left ovary measures 2.9 x 1.6 x 2.0 cm with a volume of 5 mL. There is physiologic fluid in the cul-de-sac. IMPRESSION: Unremarkable pelvic ultrasound. Reviewed by: Gavino Qiu MD on 01/16/2022 4:49 PM PST Approved by: Gavino Qiu MD on 01/16/2022 4:49 PM PST Station ID: [id number]
== END 2022-01-16 23:59 | disposition home or self-care (01) ==
LOC: DI
PROVIDERS: ATTEND Obstetrics & Gynecology
DX: N93.9 Abnormal uterine and vaginal bleeding, unspecified (principal)

== ENCOUNTER 2022-01-16 09:52 | Outpatient (CLI) | payer MEDICAID ==
--- NOTE | 2022-01-16 16:11 | Ultrasound Report ---
PROCEDURE: Abdomen Limited INDICATIONS: HEPATIC HEMANGIOMA TECHNIQUE: Real-time focused scanning was performed of the abdomen, with image documentation. COMPARISON: Report from an MRI of the abdomen with and without contrast dated 02/13/2014 which descri bed a right lobe liver hemangioma measuring 2.6 x 3.3 x 3.7 cm. FINDINGS: There is a predominantly hyperechoic, but mixed echogenicity liver lesion in the right lob e which extends to the liver capsule which is quite a bit larger than the previously described lesion . It currently measures 8.0 x 5.3 x 4.9 cm. It could potentially represent interval growth in size of a atypical cavernous hemangioma. IMPRESSION: There is an 8 cm maximum diameter liver lesion. Previously, a liver lesion was described as having a maximum diameter of 3.7 cm. Comment: Due to significant interval growth, would recommend repeat multiphase MRI of the liver. Reviewed by: Gavino Qiu MD on 01/16/2022 4:10 PM PST Approved by: Gavino Qiu MD on 01/16/2022 4:10 PM PST Station ID: [id number]
== END 2022-01-16 09:53 | disposition home or self-care (01) ==
LOC: DI 09:52
PROVIDERS: ATTEND Nurse Practitioner
DX: D18.03 Hemangioma of intra-abdominal structures (principal); N93.9 Abnormal uterine and vaginal bleeding, unspecified

== ENCOUNTER 2022-02-12 14:05 | Outpatient (CLI) | payer MEDICAID ==
[2022-02-12] MEDS ORDERED: GADOBUTROL 7.5 MMOL/7.5 ML VIAL ONE (15:10)
[2022-02-12] MEDS ORDERED: GADOBUTROL 7.5 MMOL/7.5 ML VIAL IVP ONE (16:08)
--- NOTE | 2022-02-12 16:53 | MRI Report ---
PROCEDURE: Abdomen W/WO INDICATIONS: HEPATIC HEMANGIOMA CONTRAST: IV CONTRAST: Gadavist ml: 7.3 TECHNIQUE: Coronal ultra fast SE, axial 2D spoiled GE in- and [id number]; axial breath-hold T2 fast SE. Dynam ic axial ultra fast GE during the administration of contrast; post-contrast coronal ultra fast GE or 2D spoiled GE with fat saturation from the hepatic dome to the iliac crests. Optional diffusion weig hted imaging and ADC may be performed. COMPARISON: Abdominal ultrasound 01/16/2022, 05/10/2019 and MRI 02/13/2014 FINDINGS: Image quality: Excellent. Lung bases: No basal pleural effusions. Heart size is normal. Solid organs: There is a multilobulated homogeneously T2 hyperintense mass near the liver dome in se gment VII measuring 6.7 x 5.9 x 5.8 cm. Postcontrast, arterial phase demonstrates occasional nodular septal enhancement. Venous and delayed phases demonstrate gradual nodular wash-in without enhancing c apsule. No other liver lesions. Liver and spleen are otherwise normal in size and enhancement. Gallbladder is normal. Biliary syste m is non dilated. Pancreas is normal in morphology. No adrenal nodules. Both kidneys demonstrate n ormal size and enhancement, without hydronephrosis. Nodes and vessels: No retroperitoneal or mesenteric adenopathy by size criteria. Aorta and inferior vena cava are normal in size. Bowel and peritoneum: There is a fluid-filled diverticulum arising from the third portion of the duo denum. This is seen to the left of the uncinate process of the pancreas. Stomach and bowel loops are otherwise normal in caliber. No free fluid. Bones and soft tissues: No ventral hernias. Bone marrow is normal in overall signal. IMPRESSION: 1. Since the prior MRI from 2013, there has been interval enlargement of a cavernous hepatic hemangio ma. No suspicious features. 2. No suspicious liver lesions. Reviewed by: Rosalinda Matos MD on 02/12/2022 4:51 PM PDT Approved by: Rosalinda Matos MD on 02/12/2022 4:51 PM PDT Station ID: [id number]
== END 2022-02-12 14:06 | disposition home or self-care (01) ==
LOC: DI 14:05
PROVIDERS: ATTEND Nurse Practitioner
DX: D18.03 Hemangioma of intra-abdominal structures (principal); O92.6 Galactorrhea
CPT/HCPCS: 36415; 74183; 84146; A9585

== ENCOUNTER 2022-02-26 12:29 | Emergency (ER) | payer MEDICAID ==
--- NOTE | 2022-02-26 13:41 | ED Physician Documentation ---
PD HPI LOWER EXT INJURY - Stated complaint Stated Complaint: LT HIP PAIN - Chief complaint Chief Complaint: Ext Problem - History obtained from History obtained from: Patient - History of Present Illness PD HPI LOW EXT INJURY LOCATION: Left, Hip Type of injury: Other (started working out at gym the past few days, trying to lose weight at advise of her provider. WAs doing treadmill at slight incline, and stationary bicycle, also weight training, including some squats with 15 lbs. ONset of pain lateral hip that is worse today.). No: Fall, Twist Where injury occurred: Other (gym) Timing - onset: Today, Yesterday Timing - details: Gradual onset, Still present Worsened by: Moving, Palpating (lateral hip) Associated symptoms: No: Weakness, Numbness, Swelling Similar symptoms before: Has not had sx before Recently seen: Not recently seen Review of Systems Constitutional: denies: Fever, Chills Nose: denies: Rhinorrhea / runny nose, Congestion Throat: denies: Sore throat Respiratory: denies: Cough Skin: denies: Rash, Lesions Musculoskeletal: denies: Back pain Neurologic: denies: Focal weakness, Numbness PD PAST MEDICAL HISTORY - Past Medical History Cardiovascular: None Respiratory: None Neuro: None Endocrine/Autoimmune: None GI: None PRICING ANALYST: None : None HEENT: None Psych: Depression, Anxiety Musculoskeletal: None Derm: None - Past Surgical History Past Surgical History: Yes /PRICING ANALYST: section - Present Medications Home Medications: Ambulatory Orders Medication Instructions Recorded Confirmed HYDROcod/ACETAM 5/325 [[place] 5/325] 1 - 2 tab PO Q6H PRN #10 tablet 10/05/21 Acetaminophen [Acetaminophen Extra 500 mg PO QID PRN #50 tablet 02/26/22 Strength] Doxycycline Hyclate 100 mg PO BID 5 Days #10 cap 02/26/22 HYDROcod/ACETAM 5/325 [[place] 5/325] 1 ea PO Q6H PRN #14 tablet 02/26/22 Meloxicam [Mobic] 7.5 mg PO BID 10 Days #20 tablet 02/26/22 - Allergies Allergies/Adverse Reactions: Allergies Allergy/AdvReac Type Severity Reaction Status Date / Time hydromorphone HCl * Allergy Nausea Verified 02/26/22 12:53 [From Dilaudid] iodine Allergy Respiratory Verified 02/26/22 12:53 latex Allergy Hives Verified 02/26/22 12:53 oxycodone HCl * Allergy Emesis Verified 02/26/22 12:53 [From Percocet] Penicillins Allergy Hives Verified 02/26/22 12:53 aspirin AdvReac Intermediate Epistaxis Verified 02/26/22 12:53 erythromycin base AdvReac Intermediate SWELLING Verified 02/26/22 12:53 codeine AdvReac Emesis Verified 02/26/22 12:53 pseudoephedrine HCl * AdvReac Edema Verified 02/26/22 12:53 [From Sudafed] - Social History Does the pt smoke?: No Smoking Status: Never smoker Does the pt drink ETOH?: Yes Does the pt have substance abuse?: Yes - Immunizations Immunizations are current?: Yes - POLST Patient has POLST: No PD ED PE NORMAL - Vitals Vital signs reviewed: Yes - General General: Alert and oriented X 3, No acute distress, Well developed/nourished - Back Back: No spinal TTP - Derm Derm: Normal color, Warm and dry - Extremities Extremities: Other (left hip with tenderness focally over greater trochanter, without redness nor swelling. No pain with hip impaction or rotation passively. Active abduction and external rotation against resistance hurts laterally. c/w trochanteric tendonitis/bursitis. ) - Neuro Neuro: Alert and oriented X 3, No motor deficit, No sensory deficit Results - Vitals Vitals: Vital Signs - 24 hr 02/26/22 02/26/22 12:53 15:17 Temperature 36.8 C 36.9 C Heart Rate 90 65 Respiratory 18 16 Rate Blood Pressure 102/69 115/69 O2 Saturation 100 100 Oxygen O2 Source Room air - Rads (name of study) left hip Radiology: Prelim report reviewed (no bony abnormality. ), See rad report PD MEDICAL DECISION MAKING - ED course Complexity details: reviewed results, considered differential (seems bursitis likely from new onset exercising too abruptly. does not have polyarthritis and no recent illness. local injection with kenalog and lidocaine done at trochanteric area after cleansing skin. ), d/w patient Departure - Departure Disposition: 01 Home, Self Care Clinical Impression: Skin infection Greater trochanteric bursitis Qualifiers: Laterality: left Qualified Code(s): M70.62 - Trochanteric bursitis, left hip Condition: Stable Record reviewed to determine appropriate education?: Yes Instructions: ED Bursitis Follow-Up: Judy Galloway ARNP [Primary Care Provider] - Prescriptions: Acetaminophen [Acetaminophen Extra Strength] 500 mg PO QID PRN #50 tablet PRN Reason: Pain Doxycycline Hyclate 100 mg PO BID 5 Days #10 cap Meloxicam [Mobic] 7.5 mg PO BID 10 Days #20 tablet HYDROcod/ACETAM 5/325 [[place] 5/325] 1 ea PO Q6H PRN #14 tablet PRN Reason: Pain Comments: Your x-ray is normal so no obvious bony abnormalities. This sounds like some inflammation of the bursa which is the cushion along that part of the outer hip and also some irritation of the tendons/muscle insertions. I presume they are just irritated from initiation of the exercises you are doing. I would ease back on the exercising but you do not need to stop. In particular I would avoid any inclining of the treadmill, any squat type mechanism or exercises, or prolonged biking for now. Stretching in other exercises are good for that area. Upper body work and straight walking should be okay. Do them to the level of light for now when not causing pain. I would anticipate being able to ease into the exercise more. For now we will treat the inflammation of the tendons and bursa with anti-inflammatories and add Tylenol every 4-6 hours if needed for pain. You can use hydrocodone pain medicine if needed at night for sleep etc. I would anticipate this to be very short-term need for stronger medication. Follow-up with your primary care if not improved well over the next several days to week. I transmitted your prescriptions to [facility] pharmacy in [place]. I am prescribing a short course of narcotic pain medication for you. These are potentially dangerous and addictive medications that should be used carefully. These medications may constipate you. Take an [id number] stool softener such as docusate twice daily with plenty of water while taking these medications. If you go 24 hours without a bowel movement, take [id number] MiraLAX, per package instructions. Do not drink or drive while taking these medications. If you received narcotic or sedating medications while in the emergency department do not drive for 24 hours. Store this medication in a safe, secure place and out of reach of children. It is a violation of federal law to give or sell this medication to another person or to use in a manner other than prescribed. The ED will not refill narcotic prescriptions, including prescriptions lost or stolen. You can dispose of unwanted medications at the [facility] office or at several pharmacies such as [facility]. For the abdominal skin infection, clean with soap and water twice daily and apply antibiotic ointment. Doxycycline twice daily as prescribed. Recheck if not improved over the next several days. Discharge Date/Time: 02/26/22 15:18
--- NOTE | 2022-02-26 13:46 | XRAY Report ---
PROCEDURE: Hip w/Pelvis 2-3V LT INDICATIONS: Hip pain TECHNIQUE: AP pelvis with lateral view(s) of the left hip(s). COMPARISON: None. FINDINGS: Bones: No fractures or dislocations. Pelvic ring appears intact. No suspicious bony lesions. Soft tissues: The visualized bowel gas pattern is normal. No suspicious soft tissue calcifications. IMPRESSION: No osseous lesion. If there are persistent symptoms or continued clinical concern for pathology, then repeat plain film radiographs (7-10 days) or advanced imaging (CT, MR, bone scan) should be consider ed for further evaluation. Reviewed by: Jolene Keller MD, PhD on 02/26/2022 1:44 PM PDT Approved by: Jolene Keller MD, PhD on 02/26/2022 1:44 PM PDT Station ID: [id number]
[2022-02-26] MEDS ORDERED: ACETAMINOPHEN 325 MG TABLET PO STA (14:08)
[2022-02-26] MEDS ORDERED: IBUPROFEN 600 MG TABLET PO STA (14:08)
[2022-02-26] MEDS ORDERED: TRIAMCINOLONE 40 MG/ML VIAL IM STA (14:08)
[2022-02-26] MEDS ORDERED: DOXYCYCLINE 100 MG TABLET PO STA (15:12)
[2022-02-26 15:18] VITALS: BP 115/69
== END 2022-02-26 15:18 | disposition home or self-care (01) ==
LOC: ED 12:29
DX: M70.62 Trochanteric bursitis, left hip (principal); X58.XXXA Exposure to other specified factors, initial encounter; Y93.A1 Activity, exercise machines primarily for cardiorespiratory conditioning
CPT/HCPCS: 73502; 96372; 99282; 99284; A9270

== ENCOUNTER 2022-04-25 14:06 | Outpatient (CLI) | payer MEDICAID ==
[2022-04-25 18:20] LABS: BASOPHILS # (AUTO) 0.1 10^3/uL (0.0-0.1); BASOPHILS % (AUTO) 0.9 %; EOSINOPHILS # (AUTO) 0.1 10^3/uL (0.0-0.7); EOSINOPHILS % (AUTO) 1.2 %; HCT - HEMATOCRIT 40.8 % (37.0-47.0); HGB - HEMOGLOBIN 13.9 g/dL (12.0-16.0); LYMPHOCYTES # (AUTO) 1.4 10^3/uL (1.5-3.5); LYMPHOCYTES % (AUTO) 24.4 %; MEAN CORPUSCULAR HEMOGLOBIN 29.8 pg (27.0-31.0); MEAN CORPUSCULAR HGB CONC 34.1 g/dL (32.0-36.0); MEAN CORPUSCULAR VOLUME 87.4 fL (81.0-99.0); MEAN PLATELET VOLUME 9.9 fL (7.9-10.8); MONOCYTES # (AUTO) 0.4 10^3/uL (0.0-1.0); MONOCYTES % (AUTO) 7.3 %; NEUTROPHILS # (AUTO) 3.8 10^3/uL (1.5-6.6); NEUTROPHILS % (AUTO) 65.9 %; PLT - PLATELET COUNT 259 10^3/uL (130-450); RED BLOOD COUNT 4.67 10^6/uL (4.20-5.40); RED CELL DISTRIBUTION WIDTH 12.8 % (12.0-15.0); WHITE BLOOD COUNT 5.7 x10^3/uL (4.8-10.8)
[2022-04-25 18:54] LABS: THYROID STIMULATING HORMONE 1.64 uIU/mL (0.34-5.60)
[2022-04-25 18:58] LABS: PROLACTIN 4.75 ng/mL
== END 2022-04-25 14:07 | disposition home or self-care (01) ==
LOC: LAB.N 14:06
PROVIDERS: ATTEND Nurse Practitioner
DX: N92.0 Excessive and frequent menstruation with regular cycle (principal); D64.9 Anemia, unspecified
CPT/HCPCS: 36415; 84146; 84443; 85025

== ENCOUNTER 2022-07-22 18:59 | Outpatient (CLI) | payer MEDICAID ==
--- NOTE | 2022-07-23 15:15 | Ultrasound Report ---
PROCEDURE: Pelvic w/Transvaginal INDICATIONS: ABN UTERINE BLEED TECHNIQUE: Real-time scanning was performed of the pelvic organs, with image documentation. Additional endovagi nal scanning was necessary due to incomplete visualization of the adnexal and endometrial structures by transabdominal scanning. COMPARISON: Pelvic ultrasound 01/16/2022. FINDINGS: Uterus: Uterus is anteverted and normal in size at 9.3 x 4.0 x 4.1 cm. The myometrium is homogeneou s. A scar is present. The endometrium measures 7 mm in combined thickness. No focal endom etrial lesion or abnormal endometrial vascularity visualized. Ovaries: The right ovary measures 2.2 x 1.1 x 3.1 cm, with a calculated ovarian volume of 4 cc. The left ovary measures 5.0 x 3.9 x 5.2 cm, with a calculated ovarian volume of 53 cc. The right ovary i s unremarkable in appearance. The left ovary contains a 4.5 x 4.0 x 3.8 cm cyst. This cyst contains a 2.2 cm daughter cyst but otherwise appears simple. Less than 12 follicles can be seen in each ovar y. No adnexal masses are seen. Other: No pathologic free abdominal or pelvic fluid. IMPRESSION: 1. Endometrial thickness within normal limits, 7 mm. No definite focal endometrial lesion or abnormal endometrial vascularity visualized. 2. A 4.5 cm left ovarian cyst is present, containing a small daughter cyst but otherwise appearing si mple. This is new since the prior exam. Imaging follow-up in 2-6 months to assess for change or resol ution could be performed as indicated. Reviewed by: Harjit Mata MD on 07/23/2022 3:14 PM PDT Approved by: Harjit Mata MD on 07/23/2022 3:14 PM PDT Station ID: [id number]
== END 2022-07-22 19:00 | disposition home or self-care (01) ==
LOC: DI 18:59
PROVIDERS: ATTEND Obstetrics & Gynecology
DX: N83.202 Unspecified ovarian cyst, left side (principal); N93.9 Abnormal uterine and vaginal bleeding, unspecified

== ENCOUNTER 2022-08-04 12:14 | Outpatient (CLI) | payer MEDICAID ==
[2022-08-04 12:39] LABS: HCG UR QUAL NEGATIVE
[2022-08-04 12:45] LABS: BASOPHILS % (AUTO) 0.7 %; EOSINOPHILS # (AUTO) 0.1 10^3/uL (0.0-0.7); EOSINOPHILS % (AUTO) 1.3 %; HCT - HEMATOCRIT 39.9 % (37.0-47.0); HGB - HEMOGLOBIN 13.9 g/dL (12.0-16.0); LYMPHOCYTES # (AUTO) 1.4 10^3/uL (1.5-3.5); LYMPHOCYTES % (AUTO) 31.8 %; MEAN CORPUSCULAR HEMOGLOBIN 30.1 pg (27.0-31.0); MEAN CORPUSCULAR HGB CONC 34.8 g/dL (32.0-36.0); MEAN CORPUSCULAR VOLUME 86.4 fL (81.0-99.0); MEAN PLATELET VOLUME 9.2 fL (7.9-10.8); MONOCYTES # (AUTO) 0.4 10^3/uL (0.0-1.0); MONOCYTES % (AUTO) 9.2 %; NEUTROPHILS # (AUTO) 2.5 10^3/uL (1.5-6.6); NEUTROPHILS % (AUTO) 56.8 %; PLT - PLATELET COUNT 242 10^3/uL (130-450); RED BLOOD COUNT 4.62 10^6/uL (4.20-5.40); RED CELL DISTRIBUTION WIDTH 12.7 % (12.0-15.0); WHITE BLOOD COUNT 4.5 x10^3/uL (4.8-10.8)
== END 2022-08-04 12:15 | disposition home or self-care (01) ==
LOC: LAB 12:14
PROVIDERS: ATTEND Obstetrics & Gynecology
DX: Z01.812 Encounter for preprocedural laboratory examination (principal); N93.9 Abnormal uterine and vaginal bleeding, unspecified
CPT/HCPCS: 36415; 81025; 85025; 86850; 86900; 86901

== ENCOUNTER 2022-08-05 07:02 | Day surgery (SDC) | payer MEDICAID ==
[~2022-08-05 07:02] MED LIST: ACETAMINOPHEN 1,000 MG/100 ML 0 ML IV ONE; ACETAMINOPHEN 500 MG TABLET PO ONE; CEFAZOLIN 2G/50ML 0.9% NS 2 GM/50 ML BAG IV ONE; CELECOXIB 100 MG CAPSULE PO ONE; GABAPENTIN 400 MG CAPSULE ONE
[2022-08-05] MEDS ORDERED: LACTATED RINGERS 1,000 ML IV ONE ×2 (07:40→14:07)
[2022-08-05] MEDS ORDERED: SCOPOLAMINE PATCH TOP ONE (08:05)
[2022-08-05] MEDS ORDERED: LIDOCAINE-MPF 2% 5 ML VIAL ONE (08:05)
[2022-08-05] MEDS ORDERED: ONDANSETRON 4 MG/2 ML VIAL ONE ×2 (08:05→14:01)
[2022-08-05] MEDS ORDERED: ROCURONIUM 50 MG/5 ML VIAL ONE ×2 (08:05→10:21)
[2022-08-05] MEDS ORDERED: PROPOFOL 200 MG/20 ML VIAL IVP ONE (08:05)
[2022-08-05] MEDS ORDERED: DEXAMETHASONE 4 MG/ML VIAL ONE (08:05)
[2022-08-05] MEDS ORDERED: fentaNYL 100 MCG/2 ML VIAL ONE ×3 (08:06→14:01)
[2022-08-05] MEDS ORDERED: MIDAZOLAM 2 MG/2 ML VIAL ONE (08:06)
--- NOTE | 2022-08-05 08:29 | ANESTHESIA ---
Pre-Anesthesia VS, & Labs - Diagnosis ABNORMAL UTERINE BLEEDING - Procedure TOTAL LAPAROSCOPIC HYSTERECTOMY Vital Signs: Temp Pulse Resp BP Pulse Ox O2 Flow Rate 36.5 C 70 14 108/70 99 08/05/22 07:13 08/05/22 07:13 08/05/22 07:13 08/05/22 07:13 08/05/22 07:13 Height: 5 ft 2 in Weight (kg): 69.9 kg Body Mass Index: 28.1 BMI Classification: Overweight - NPO >8 hours - Is Patient ?: No - Lab Results Current Lab Results: Laboratory Tests 08/05/22 07:35: POC Whole Bld Glucose 94 Home Medications and Allergies Home Medications: Ambulatory Orders Albuterol Sulfate [Proair Hfa Inhaler] 1 - 2 puffs PO QID PRN 07/31/22 HYDROcod/ACETAM 5/325 [[place] 5/325] 5 mg PO HS 08/05/22 diphenhydrAMINE [Benadryl] 25 mg PO HS 08/05/22 Albuterol Sulfate [Proair Hfa Inhaler] 1 - 2 puffs PO QID PRN 07/31/22 HYDROcod/ACETAM 5/325 [[place] 5/325] 5 mg PO HS 08/05/22 diphenhydrAMINE [Benadryl] 25 mg PO HS 08/05/22 Allergies/Adverse Reactions: Allergies Allergy/AdvReac Type Severity Reaction Status Date / Time hydromorphone HCl * Allergy Nausea Verified 02/26/22 12:53 [From Dilaudid] iodine Allergy Respiratory Verified 02/26/22 12:53 latex Allergy Hives Verified 02/26/22 12:53 oxycodone HCl * Allergy Emesis Verified 02/26/22 12:53 [From Percocet] Penicillins Allergy Hives Verified 02/26/22 12:53 aspirin AdvReac Intermediate Epistaxis Verified 02/26/22 12:53 erythromycin base AdvReac Intermediate SWELLING Verified 02/26/22 12:53 codeine AdvReac Emesis Verified 02/26/22 12:53 pseudoephedrine HCl * AdvReac Edema Verified 02/26/22 12:53 [From Sudafed] Anes History & Medical History - Anesthetic History Anesthesia Complications: reports: Post-Operative Nausea/Vomiting Family history of Anesthesia Complications: Denies Family history of Malignant Hyperthermia: Denies - Medical History Cardiovascular: reports: None Pulmonary: reports: Sleep apnea, Other (CHRONIC BROCHITITS - no inhaler use for > 3 months. SLEEP APNEA - no CPAP use) Gastrointestinal: reports: Other (HEPATIC HEMANGIOMA) Urinary: reports: None Neuro: reports: None Musculoskeletal: reports: None Endocrine/Autoimmune: reports: None Blood Disorders: reports: None Skin: reports: None Smoking Status: Never smoker Psychosocial: reports: Depression, Other History of Cancer?: No - Surgical History General: reports: EGD Gynecologic: reports: section Exam General: Alert, Oriented x3, Cooperative, No acute distress Dental: WNL, Poor dentition Mouth Openin Fingerbreadth Neck Mobility: Normal Mallampati classification: II Thyromental Distance: 4-6 cm Respiratory: Lungs clear, Normal breath sounds, No respiratory distress, No accessory muscle use Cardiovascular: Regular rate, Normal S1, Normal S2, No murmurs Mental/Cognitive Status: Alert/Oriented X3, Normal for patient Cognitive Status: Within normal limits Plan Anesthesia Type: General, Transverse Abdominis Plane (TAP) Block Consent for Procedure(s) Verified and Reviewed: Yes Code Status: Attempt Resuscitation ASA classification: 2-Mild systemic disease Is this case an emergency?: No
[2022-08-05] MEDS ORDERED: METOCLOPRAMIDE 10 MG/2 ML VIAL IVP PRN (08:42)
[2022-08-05] MEDS ORDERED: ePHEDrine 50 MG/ML VIAL IVP PRN (08:42)
[2022-08-05] MEDS ORDERED: fentaNYL 100 MCG/2 ML VIAL IVP PRN (08:42)
[2022-08-05] MEDS ORDERED: ATROPINE ABBOJECT 1 MG/10 ML SYRINGE IVP PRN (08:42)
[2022-08-05] MEDS ORDERED: NALOXONE 0.4 MG/ML VIAL IVP PRN (08:42)
[2022-08-05] MEDS ORDERED: ONDANSETRON 4 MG/2 ML VIAL IVP PRN (08:42)
[2022-08-05] MEDS ORDERED: LIDOCAINE JELLY 2% 6 ML JEL.PF.APP ONE (08:44)
[2022-08-05] MEDS ORDERED: LIDOCAINE MPF 2%-EPI 1:200000 20 ML VIAL ONE (08:44)
[2022-08-05] MEDS ORDERED: BUPIVACAINE 0.5% PF 30 ML VIAL ONE (08:45)
[2022-08-05] MEDS ORDERED: METHYLENE BLUE 0.5% 50 MG/10 ML AMPULE ONE (08:45)
[2022-08-05] MEDS ORDERED: BUPIVACAINE 0.25% PF 10 ML VIAL ONE (08:48)
[2022-08-05] MEDS ORDERED: SCOPOLAMINE PATCH TOP SCH (09:00)
[2022-08-05] MEDS ORDERED: LACTATED RINGERS 1,000 ML IV SCH (09:00)
[2022-08-05] MEDS ORDERED: BUPIVACAINE 0.25% PF 10 ML VIAL SUBQ ONE (10:22)
[2022-08-05] MEDS ORDERED: SIMETHICONE CHEW 80 MG TABLET PO PRN (12:59)
[2022-08-05] MEDS ORDERED: SCOPOLAMINE PATCH TOP PRN (12:59)
[2022-08-05] MEDS ORDERED: ceFAZolin 1 GM VIAL ONE (13:02)
--- NOTE | 2022-08-05 13:16 | OPERATIVE REPORT ---
Operative Report - General Procedure Date: 08/05/22 Planned Procedure: Total laparoscopic hysterectomy, possible left ovarian cystectomy, cystoscopy Pre-Op Diagnosis: Abnormal uterine bleeding, left ovarian cyst Procedure Performed: Laparoscopic assisted vaginal hysterectomy, cystoscopy Post Op Diagnosis: Abnormal uterine bleeding, lysis of adhesions - Procedure Note Primary Surgeon: Marv Cespedes MD Secondary Surgeon: Brayan Chand MD Anesthesia Provider: Lucita Rosa CRNA Anesthesia Technique: General ET tube Pathology: Uterus IV Fluids (mL): 1,500 Estimated Blood Loss (mL): 100 Urine Output (mL): 60 Complications: None - Other Other Information/Narrative: Counseling Patient was counseled on the risks benefits and alternatives of laparoscopic hysterectomy. The risk of bleeding including the risk for transfusion and transfusion risks were reviewed. She was counseled on the risk of infection. She was counseled on the risk of injury to surrounding organs including but not limited to the bowel bladder ureters or ovaries possibly requiring further more extensive surgery possibly at a later date. She was counseled on the possible risk of conversion to an open procedure especially if scar tissue or bleeding was encountered or if an above-noted injury occurred. She was counseled that removal of the ovaries would result in menopause, so we discussed keeping them. She was counseled that removal of her uterus would prevent her from having children in the future, but she already had a tubal ligation. Questions were answered the patient gave informed consent for the procedure. Technique Patient was taken to the operating room where a timeout was performed the patient was given preoperative antibiotics. General endotracheal anesthesia was found to be adequate. Patient was positioned on the operating table in dorsal lithotomy position in [facility] stirrups. A bear hugger was placed and pressure points were padded. Patient was then prepped and draped in the normal sterile fashion using Hibiclens vaginally and ChloraPrep abdominally. An exam under anesthesia was performed and was consistent with her preoperative evaluation. A Schmid catheter was placed under sterile conditions. A weighted speculum was inserted into the vagina. Due to the relaxed vaginal tissue, it was felt a vaginal approach may be helpful, so the anterior lip of the cervix was grasped with a single-tooth tenaculum as well as the posterior lip. Using hydrodistention of local anesthesia, the cervix was instilled with water. The Bovie was then used to circumferentially dissect the vaginal tissue from the cervix at the cervical vaginal junction. Metzenbaum scissors were then used to enter the posterior cul-de-sac sharply. The uterine sacral ligaments were then clamped with 2 Eileen clamps and cut with Shepard scissors. These were then tagged with suture. The cervix was then tagged with a stitch for later removal. At that point the cervix was dilated to 8 cm, the Community Planning Technician manipulator was placed into the uterus. The balloons were inflated. The pneumo occluder was then engaged and the gas was turned on. We removed the speculum and tenaculum was from the vagina. We attempted to inflate vaginally, this did not work, so we turned to the abdominal portion of the procedure. Sterile attire was exchanged. A 5 mm umbilical incision was made with a scalpel following infusion of local anesthetic. A 5 mm trocar and sleeve were inserted through the incision into the peritoneum under laparoscopic visualization. Pneumoperitoneum was obtained with approximately 3 L of carbon dioxide. Inspection of the underlying bowel and vasculature reveals no injuries from laparoscopic entry. Next a 5 mm right lower quadrant trocar was placed under laparoscopic visualization lateral to the course of the inferior epigastric vessels. Next a left 5 mm lower quadrant trocar was placed under laparoscopic visualization lateral to the course of the inferior epigastric vessels. Trendelenberg positioning was obtained allowing the bowel to fall from the pelvis. Using a combination of sharp and blunt dissection, anterior abdominal wall adhesions were removed making visualization of the pelvis easier. It was noted she had a significant scar tissue from her previous sections. Also noted was the appendix was adhered to the ovary and round ligament. Inspection of the ovaries showed no significant cysts, a small right cyst approxi-1 cm diameter was noted and ruptured during surgery. No significant left cyst was noted. This was from the uterus with a combination of blunt and sharp dissection using the EndoShears and retraction. After the appendix was from the uterus, the ovary was from the uterus using the LigaSure device. The right round ligament was coagulated and transected. We visualized the location of the uterus running below the pelvic brim. At this p oint we placed a 5 mm suprapubic port to assist in dissection. Attention was then turned to the left side where adhesions were similar removed from the ovary to the sidewall. The uterus was from the ovary at the utero-ovarian ligament. This was marched down to the posterior colpotomy after identifying the course of the ureter. We returned the right side and met the posterior colpotomy it up to the round ligament. We then transected the right round ligament and we gradually attempted open the broad ligament anteriorly. Due to the thick adhesions, we were careful and used mostly sharp dissection to remove the scar tissue from the anterior uterus. Progress was also made down the broad ligament to the level of the uterine vessels. Uterus was elevated using the uterine manipulator, the uterine vessel was skeletonized identified doubly coagulated and transected using LigaSure device at the level of the colpotomy. The colpotomy was then carried out from the sides meeting the front completely transecting the uterus. The uterus was then removed through the vagina. The pelvis was cleared of clot and debris to reobtaining pneumoperitoneum. We then turned back to the vagina and close the cuff with a running suture of 2-0 Vicryl. Following closure of the vaginal cuff hemostasis was ensured. We then again achieved pneumoperitoneum and assessed the pelvis for bleeding which none was noted. It was irrigated and hemostatic. There is no evidence of injury to the bowel, bladder, or uterus bilaterally. The vascular pedicles remained hemostatic. Pneumoperitoneum was released and skin was closed in a subcuticular fashion using 4-0 Monocryl. Cystoscopy: The cystoscope was then introduced after removal of the Schmid. Under direct visualization using mannitol as a distending media the ureters were identified bilaterally and equal brisk ureteral jets were noted. The bladder was distended and the anatomic boundaries of the bladder were inspected and found to be free from injury. The bladder was drained and the cystoscope was removed. The Schmid catheter was replaced in a sterile fashion. The patient was then cleaned and dried and legs brought down out of lithotomy position simultaneously. Sponge lap and needle counts were reported correct by the nursing staff following the procedure. I appreciate the assistance of Dr. Chand during this procedure, and her assistance in retraction, visualization, dissection, and overall assistance during the case were instrumental to the patient's wellbeing.
[2022-08-05] MEDS ORDERED: LACTATED RINGERS 250 ML IV ONE (13:44)
[2022-08-05] MEDS: ONDANSETRON ODT 4 MG TABLET TL PRN ×2 (14:51→21:30)
[2022-08-05] MEDS: KETOROLAC 30 MG/ML VIAL IVP SCH ×2 (14:52→19:35)
[2022-08-05] MEDS: LACTATED RINGERS 1,000 ML IV SCH (14:52)
[2022-08-05] MEDS: ACETAMINOPHEN 500 MG TABLET PO SCH ×2 (15:07→21:48)
[2022-08-05] MEDS ORDERED: METOCLOPRAMIDE 10 MG/2 ML VIAL IVP ONE (15:58)
[2022-08-05] MEDS ORDERED: ACETAMINOPHEN 1,000 MG/100 ML 1,000 MG/100 ML BAG IV ONE ×2 (16:03→16:22)
[2022-08-05] MEDS ORDERED: METOCLOPRAMIDE 10 MG/2 ML VIAL ONE (16:21)
--- NOTE | 2022-08-05 19:05 | ANESTHESIA POST OP EVALUATION ---
Anesthesia Post Eval - Post Anesthesia Eval Vitals: Last Vital Signs Temp 36.4 C L 08/05/22 15:30 Pulse 77 08/05/22 15:30 Resp 16 08/05/22 15:30 BP 119/73 08/05/22 15:30 Pulse Ox 99 08/05/22 15:30 O2 Flow Rate CV Function Including HR & BP: Stable Pain Control: Satisfactory Nausea & Vomiting: Negative Mental Status: Baseline Respiratory Status: Airway Patent Hydration Status: Satisfactory Anesthesia Complications: None
[2022-08-05] MEDS ORDERED: SUGAMMADEX 200 MG/2 ML VIAL IVP ONE (19:25)
[2022-08-05] MEDS: DOCUSATE SODIUM 100 MG CAPSULE PO SCH (21:48)
[2022-08-05] MEDS: oxyCODONE 5 MG TABLET PO PRN (23:37)
[2022-08-06] MEDS: KETOROLAC 30 MG/ML VIAL IVP SCH ×2 (00:56→06:38)
[2022-08-06] MEDS: LACTATED RINGERS 1,000 ML IV SCH ×2 (01:00→11:27)
[2022-08-06] MEDS: ACETAMINOPHEN 500 MG TABLET PO SCH ×2 (04:58→13:54)
[2022-08-06 05:48] LABS: BASOPHILS % (AUTO) 0.3 %; EOSINOPHILS % (AUTO) 0.2 %; HCT - HEMATOCRIT 29.7 % (37.0-47.0); HGB - HEMOGLOBIN 10.3 g/dL (12.0-16.0); LYMPHOCYTES # (AUTO) 1.7 10^3/uL (1.5-3.5); LYMPHOCYTES % (AUTO) 17.6 %; MEAN CORPUSCULAR HEMOGLOBIN 30.1 pg (27.0-31.0); MEAN CORPUSCULAR HGB CONC 34.7 g/dL (32.0-36.0); MEAN CORPUSCULAR VOLUME 86.8 fL (81.0-99.0); MEAN PLATELET VOLUME 9.4 fL (7.9-10.8); MONOCYTES # (AUTO) 0.9 10^3/uL (0.0-1.0); MONOCYTES % (AUTO) 8.9 %; NEUTROPHILS # (AUTO) 7.1 10^3/uL (1.5-6.6); NEUTROPHILS % (AUTO) 72.7 %; PLT - PLATELET COUNT 187 10^3/uL (130-450); RED BLOOD COUNT 3.42 10^6/uL (4.20-5.40); RED CELL DISTRIBUTION WIDTH 12.9 % (12.0-15.0); WHITE BLOOD COUNT 9.7 x10^3/uL (4.8-10.8)
--- NOTE | 2022-08-06 08:23 | Discharge Plan ---
Discharge Plan Problem Reviewed?: Yes Disposition: Home, Self Care Condition: Good Diet: Regular Activity Restrictions: Additional Comments Shower Restrictions: No Driving Restrictions: Yes (For two weeks and while taking opioid medications) Instruction Topics: Hysterectomy Laparoscopic Dc No Smoking: If you smoke, Please STOP! Call for help. Follow-up with: Judy Galloway ARNP [Primary Care Provider] - Marv Cespedes MD [Provider Admit Priv/Credential] -
[2022-08-06] MEDS: ONDANSETRON ODT 4 MG TABLET TL PRN (08:37)
[2022-08-06] MEDS: DOCUSATE SODIUM 100 MG CAPSULE PO SCH (08:37)
[2022-08-06] MEDS: oxyCODONE 5 MG TABLET PO PRN ×2 (08:37→13:55)
[2022-08-06] MEDS ORDERED: ENOXAPARIN 40 MG/0.4 ML SYRINGE SUBQ SCH (09:00)
[2022-08-06 13:06] VITALS: BP 98/58
== END 2022-08-06 15:40 | disposition home or self-care (01) ==
LOC: SDS 07:02 → MS2 13:42 → SDS 08-06 15:40
PROVIDERS: ATTEND Obstetrics & Gynecology
PROC: 0UT9FZZ Resection of Uterus, Via Natural or Artificial Opening With Percutaneous Endoscopic Assistance (ICD-10-PCS; principal; 2022-08-05 08:30)
DX: N93.9 Abnormal uterine and vaginal bleeding, unspecified (principal); N80.0 Endometriosis of uterus; N72 Inflammatory disease of cervix uteri; N83.201 Unspecified ovarian cyst, right side; N73.6 Female pelvic peritoneal adhesions (postinfective); N83.202 Unspecified ovarian cyst, left side; G47.30 Sleep apnea, unspecified; J45.909 Unspecified asthma, uncomplicated; Z87.891 Personal history of nicotine dependence; Z98.51 Tubal ligation status
CPT/HCPCS: 36415; 58550; 85025; A9270; J0131; J0690; J1650; J2765; J3490; J7120; Q0162

== ENCOUNTER 2022-08-14 10:29 | Emergency (ER) | payer MEDICAID ==
[2022-08-14 10:37] VITALS: BP 126/80
--- OUTSIDE RECORDS SUMMARY | 2022-08-14 10:37 | EXTERNAL MEDICAL SUMMARY RPT | Continuity of Care Document ---
:1980 Author Organization [place] Address [address] [place] [address] Phone Allergies and Intolerances date description facility type (no date) [place] (unknown) (no date) aspirin [facility] (unknown) (no date) codeine [facility] (unknown) (no date) erythromycin base [facility] (unknown) (no date) latex [facility] (unknown) (no date) oxycodone [facility] (unknown) (no date) pseudoephedrine [facility] (unknown) (no date) zolpidem [facility] (unknown) Encounters No information. Functional Status No information. Immunizations No information. Medications No information. Problems No information. Procedures No information. Results/Labs test date author facility value unit interpret ation Result panel 1 (unknown) (no (unknown) (unknown) (no value) (units (unk nown) date) unknown) (unknown) (no (unknown) (unknown) (no value) (units (unk nown) date) unknown) (unknown) (no (unknown) (unknown) Date of Service: (units (unknown) date) 06/16/22 unknown) (unknown) (no (unknown) (unknown) (no value) (units (unk nown) date) unknown) (unknown) (no (unknown) (unknown) 1 - 2 puff (units (unk nown) date) Inhalation Q4H PRN unknown) (Reason: Shortness Of Breath) (unknown) (no (unknown) (unknown) 1 - 2 spray (units (un known) date) Intranasal DAILY unknown) (unknown) (no (unknown) (unknown) 1 cap PO BID (units (u nknown) date) unknown) (unknown) (no (unknown) (unknown) 1 cap PO DAILY (units (unknown) date) unknown) (unknown) (no (unknown) (unknown) 1 cap PO TID PRN (units (unknown) date) (Reason: Cough) unknown) (unknown) (no (unknown) (unknown) 1 tab PO DAILY (units (unknown) date) unknown) (unknown) (no (unknown) (unknown) 1 tab PO Q6H (units (u nknown) date) unknown) (unknown) (no (unknown) (unknown) 10 mg PO TID PRN (units (unknown) date) (Reason: Nausea) unknown) (unknown) (no (unknown) (unknown) 15 ml PO EVERY (units (unknown) date) OTHER DAY unknown) (unknown) (no (unknown) (unknown) 2 tab PO Q4H MDD (units (unknown) date) 8 tabs PRN unknown) (Reason: Pain, Mild) (unknown) (no (unknown) (unknown) 50 mg PO QPM (units (u nknown) date) unknown) (unknown) (no (unknown) (unknown) Allergies (units (unkn own) date) unknown) (unknown) (no (unknown) (unknown) Emergency Report (units (unknown) date) unknown) (unknown) (no (unknown) (unknown) Home Medications (units (unknown) date) unknown) (unknown) (no (unknown) (unknown) [facility] (units (unknown) date) [address] [place] [address] unknown) [place] [address] (unknown) (no (unknown) (unknown) Label Comments: (units (unknown) date) unknown) (unknown) (no (unknown) (unknown) VOMITING (units (unkno wn) date) unknown) (unknown) (no (unknown) (unknown) Vital Signs - 8 (units (unknown) date) hr unknown) (unknown) (no (unknown) (unknown) angry' (units (unkno wn) date) unknown) (unknown) (no (unknown) (unknown) for me' (units (unkno wn) date) unknown) (unknown) (no (unknown) (unknown) for pain (units (unkno wn) date) unknown) (unknown) (no (unknown) (unknown) inhale 1 to 2 (units ( unknown) date) puffs by mouth unknown) every 4 hours if needed (unknown) (no (unknown) (unknown) take 1 capsule by (units (unknown) date) mouth twice a day unknown) (unknown) (no (unknown) (unknown) take 1 tablet by (units (unknown) date) mouth daily unknown) (unknown) (no (unknown) (unknown) take 2 tablets by (units (unknown) date) mouth every 4 unknown) hours if needed /// MAX 8 TABLETS PER 24 (unknown) (no (unknown) (unknown) (no value) (units (unk nown) date) unknown) (unknown) (no (unknown) (unknown) PNV,calcium (units (un known) date) [id number] acid unknown) [ Plus (calcium carb)] 27 mg iron- 1 mg (unknown) (no (unknown) (unknown) acetaminophen (units ( unknown) date) [Mapap Extra unknown) Strength] 500 mg tablet (unknown) (no (unknown) (unknown) albuterol sulfate (units (unknown) date) [ProAir HFA] 90 unknown) mcg/actuation HFA aerosol inhaler (unknown) (no (unknown) (unknown) benzonatate 100 (units (unknown) date) mg capsule unknown) (unknown) (no (unknown) (unknown) docusate sodium (units (unknown) date) [Stool Softener] unknown) 250 mg capsule (unknown) (no (unknown) (unknown) ferrous sulfate (units (unknown) date) 325 mg (65 mg unknown) iron) tablet,delayed release (DR/EC) (unknown) (no (unknown) (unknown) fluticasone (units (un known) date) propionate 50 unknown) mcg/actuation spray,suspension (unknown) (no (unknown) (unknown) labetalol 200 mg (units (unknown) date) tablet unknown) (unknown) (no (unknown) (unknown) lactulose 10 (units (u nknown) date) gram/15 mL unknown) solution (unknown) (no (unknown) (unknown) metoclopramide (units (unknown) date) HCl 10 MG tablet unknown) (unknown) (no (unknown) (unknown) ranitidine HCl (units (unknown) date) 150 mg capsule unknown) (unknown) (no (unknown) (unknown) sertraline 50 mg (units (unknown) date) tablet unknown) (unknown) (no (unknown) (unknown) 06/16/22 (units (unkno wn) date) unknown) (unknown) (no (unknown) (unknown) Medication (units (unk nown) date) Instructions unknown) Recorded Confirmed (unknown) (no (unknown) (unknown) [id number] (units (unkno wn) date) unknown) (unknown) (no (unknown) (unknown) 05/04/18 (units (unkno wn) date) unknown) (unknown) (no (unknown) (unknown) 20:54 (units (unkno wn) date) unknown) (unknown) (no (unknown) (unknown) Age/Sex: 42 / F (units (unknown) date) unknown) (unknown) (no (unknown) (unknown) Allergy/AdvReac (units (unknown) date) Type Severity unknown) Reaction Status Date / Time (unknown) (no (unknown) (unknown) Blood Pressure (units (unknown) date) 109/80 06/16/22 unknown) 20:54 (unknown) (no (unknown) (unknown) Blood Pressure (units (unknown) date) 109 unknown) (unknown) (no (unknown) (unknown) Chief complaint: (units (unknown) date) Dental/Oral unknown) (unknown) (no (unknown) (unknown) Course (units (unkno wn) date) unknown) (unknown) (no (unknown) (unknown) : 1980 (units (unknown) date) Acct:[id number] unknown) (unknown) (no (unknown) (unknown) Departure (units (unkn own) date) unknown) (unknown) (no (unknown) (unknown) Discharge Plan (units (unknown) date) unknown) (unknown) (no (unknown) (unknown) ER Physician: (units ( unknown) date) Marv Uribe D.O. unknown) (unknown) (no (unknown) (unknown) Exam (units (unkno wn) date) unknown) (unknown) (no (unknown) (unknown) General (units (unkno wn) date) unknown) (unknown) (no (unknown) (unknown) HOURS. patient (units (unknown) date) states ran out unknown) (unknown) (no (unknown) (unknown) HPI - Dental/Oral (units (unknown) date) unknown) (unknown) (no (unknown) (unknown) Initial Vital (units ( unknown) date) Signs unknown) (unknown) (no (unknown) (unknown) Initial Vital (units ( unknown) date) Signs: unknown) (unknown) (no (unknown) (unknown) Mode of arrival: (units (unknown) date) Ambulatory unknown) (unknown) (no (unknown) (unknown) Jd Dubon MD (units (unknown) date) [Primary Care unknown) Provider] - (unknown) (no (unknown) (unknown) No Action (units (unkn own) date) unknown) (unknown) (no (unknown) (unknown) Oxygen Delivery (units (unknown) date) Method 06/16/22 unknown) 20:54 (unknown) (no (unknown) (unknown) Oxygen Delivery (units (unknown) date) Method Room Air unknown) (unknown) (no (unknown) (unknown) Patient History (units (unknown) date) unknown) (unknown) (no (unknown) (unknown) Patient: (units (unkno wn) date) Brie Hughes N unknown) MR#: [id number] (unknown) (no (unknown) (unknown) Penicillins (units (un known) date) [PENICILLINS] unknown) Allergy Severe NAUSEA / Verified 05/04/18 13:49 (unknown) (no (unknown) (unknown) Prescriptions: (units (unknown) date) unknown) (unknown) (no (unknown) (unknown) Pulse Oximetry 97 (units (unknown) date) 06/16/22 20:54 unknown) (unknown) (no (unknown) (unknown) Pulse Oximetry 97 (units (unknown) date) unknown) (unknown) (no (unknown) (unknown) Pulse Rate 78 (units ( unknown) date) 06/16/22 20:54 unknown) (unknown) (no (unknown) (unknown) Pulse Rate 78 (units ( unknown) date) unknown) (unknown) (no (unknown) (unknown) Referrals: (units (unk nown) date) unknown) (unknown) (no (unknown) (unknown) Related Data (units (u nknown) date) unknown) (unknown) (no (unknown) (unknown) Respiratory Rate (units (unknown) date) 17 06/16/22 20:54 unknown) (unknown) (no (unknown) (unknown) Respiratory Rate (units (unknown) date) 17 unknown) (unknown) (no (unknown) (unknown) Signed By: (units (unk nown) date) unknown) (unknown) (no (unknown) (unknown) Smoking Status: (units (unknown) date) Never smoker unknown) (unknown) (no (unknown) (unknown) Smoking Status: (units (unknown) date) Never smoker unknown) (unknown) (no (unknown) (unknown) Social History (units (unknown) date) unknown) (unknown) (no (unknown) (unknown) Source: patient (units (unknown) date) unknown) (unknown) (no (unknown) (unknown) Stated complaint: (units (unknown) date) Severe mouth pain unknown) following tooth extraction (unknown) (no (unknown) (unknown) Substance Use (units ( unknown) date) Type: does not use unknown) (unknown) (no (unknown) (unknown) Temperature 97.9 (units (unknown) date) F 06/16/22 20:54 unknown) (unknown) (no (unknown) (unknown) Temperature 97.9 (units (unknown) date) F unknown) (unknown) (no (unknown) (unknown) Time Seen by (units (u nknown) date) Provider: 06/16/22 unknown) 23:50 (unknown) (no (unknown) (unknown) Vital Signs (units (un known) date) unknown) (unknown) (no (unknown) (unknown) Vital signs: (units (u nknown) date) unknown) (unknown) (no (unknown) (unknown) [ERYTHROMYCIN (units ( unknown) date) BASE] unknown) (unknown) (no (unknown) (unknown) [From Sudafed] (units (unknown) date) unknown) (unknown) (no (unknown) (unknown) acetaminophen 500 (units (unknown) date) mg tablet 2 tab PO unknown) Q4H PRN Pain, Mild 05/04/18 05/04/18 (unknown) (no (unknown) (unknown) aerosol inhaler (units (unknown) date) Shortness Of unknown) Breath (unknown) (no (unknown) (unknown) albuterol sulfate (units (unknown) date) 90 mcg/actuation 1 unknown) - 2 puff inhalation Q4H PRN 05/04/18 (unknown) (no (unknown) (unknown) alcohol intake (units (unknown) date) frequency: 0-2 unknown) drinks per day (unknown) (no (unknown) (unknown) aspirin [ASPIRIN] (units (unknown) date) Allergy Unknown unknown) Verified 05/04/18 13:49 (unknown) (no (unknown) (unknown) benzonatate 100 (units (unknown) date) mg capsule 1 cap unknown) PO TID PRN Cough 05/04/18 05/04/18 (unknown) (no (unknown) (unknown) codeine [CODEINE] (units (unknown) date) Allergy Severe unknown) NAUSEA / Verified 05/04/18 13:49 (unknown) (no (unknown) (unknown) docusate sodium (units (unknown) date) 250 mg capsule 1 unknown) cap PO DAILY 05/04/18 05/04/18 (unknown) (no (unknown) (unknown) erythromycin base (units (unknown) date) Allergy Severe unknown) SWELLING Verified 05/04/18 13:49 (unknown) (no (unknown) (unknown) ferrous sulfate (units (unknown) date) 325 mg (65 mg 1 unknown) tab PO DAILY 05/04/18 05/04/18 (unknown) (no (unknown) (unknown) fluticasone (units (un known) date) propionate 50 1 - unknown) 2 spray intranasal DAILY 05/04/18 05/04/18 (unknown) (no (unknown) (unknown) iron) (units (unkno wn) date) tablet,delayed unknown) release (unknown) (no (unknown) (unknown) labetalol 200 mg (units (unknown) date) tablet 1 tab PO unknown) Q6H 05/04/18 05/04/18 (unknown) (no (unknown) (unknown) lactulose 10 (units (u nknown) date) gram/15 mL oral 15 unknown) ml PO EVERY OTHER DAY 05/04/18 05/04/18 (unknown) (no (unknown) (unknown) latex [LATEX] (units ( unknown) date) Allergy Unknown unknown) Verified 05/04/18 13:49 (unknown) (no (unknown) (unknown) mcg/actuation (units ( unknown) date) nasal unknown) (unknown) (no (unknown) (unknown) metoclopramide (units (unknown) date) HCl 10 mg tablet unknown) 10 mg PO TID PRN Nausea 05/04/18 05/04/18 (unknown) (no (unknown) (unknown) no.72-iron 27 (units ( unknown) date) mg-folic acid 1 mg unknown) (unknown) (no (unknown) (unknown) oxycodone [From (units (unknown) date) OXYCONTIN] AdvReac unknown) Mild 'Ineffective Verified 05/04/18 13:49 (unknown) (no (unknown) (unknown) vitamin (units (unknown) date) with calcium 1 tab unknown) PO DAILY 05/04/18 05/04/18 (unknown) (no (unknown) (unknown) pseudoephedrine (units (unknown) date) Allergy Verified unknown) 05/04/18 13:49 (unknown) (no (unknown) (unknown) ranitidine HCl (units (unknown) date) 150 mg capsule 1 unknown) cap PO BID 05/04/18 05/04/18 (unknown) (no (unknown) (unknown) sertraline 50 mg (units (unknown) date) tablet 50 mg PO unknown) QPM 05/04/18 05/04/18 (unknown) (no (unknown) (unknown) solution (units (unkno wn) date) unknown) (unknown) (no (unknown) (unknown) spray,suspension (units (unknown) date) unknown) (unknown) (no (unknown) (unknown) tablet (units (unkno wn) date) unknown) (unknown) (no (unknown) (unknown) tablet (units (unkno wn) date) unknown) (unknown) (no (unknown) (unknown) zolpidem [From (units (unknown) date) AMBIEN] AdvReac unknown) Mild 'Makes me Verified 05/04/18 13:49 Result panel 2 (unknown) (no (unknown) (unknown) (no value) (units (unk nown) date) unknown) (unknown) (no (unknown) (unknown) (no value) (units (unk nown) date) unknown) (unknown) (no (unknown) (unknown) *Please continue (units (unknown) date) to take your unknown) regular medications as directed. (unknown) (no (unknown) (unknown) Date of Service: (units (unknown) date) 06/16/22 unknown) (unknown) (no (unknown) (unknown) (no value) (units (unk nown) date) unknown) (unknown) (no (unknown) (unknown) <Electronically (units (unknown) date) signed by Marv Uribe D.O.> (unknown) (no (unknown) (unknown) 06/18/22 0216 (units ( unknown) date) unknown) (unknown) (no (unknown) (unknown) 1 - 2 puff (units (unk nown) date) Inhalation Q4H PRN unknown) (Reason: Shortness Of Breath) (unknown) (no (unknown) (unknown) 1 - 2 spray (units (un known) date) Intranasal DAILY unknown) (unknown) (no (unknown) (unknown) 1 cap PO BID (units (u nknown) date) unknown) (unknown) (no (unknown) (unknown) 1 cap PO DAILY (units (unknown) date) unknown) (unknown) (no (unknown) (unknown) 1 cap PO TID PRN (units (unknown) date) (Reason: Cough) unknown) (unknown) (no (unknown) (unknown) 1 tab PO DAILY (units (unknown) date) unknown) (unknown) (no (unknown) (unknown) 1 tab PO Q4-6H (units (unknown) date) PRN (Reason: pain) unknown) Qty: 10 0RF (unknown) (no (unknown) (unknown) 1 tab PO Q6H (units (u nknown) date) unknown) (unknown) (no (unknown) (unknown) 10 mg PO TID PRN (units (unknown) date) (Reason: Nausea) unknown) (unknown) (no (unknown) (unknown) 15 ml PO EVERY (units (unknown) date) OTHER DAY unknown) (unknown) (no (unknown) (unknown) 2 tab PO Q4H MDD (units (unknown) date) 8 tabs PRN unknown) (Reason: Pain, Mild) (unknown) (no (unknown) (unknown) 50 mg PO QPM (units (u nknown) date) unknown) (unknown) (no (unknown) (unknown) Allergies (units (unkn own) date) unknown) (unknown) (no (unknown) (unknown) Documented By: KP (units (unknown) date) unknown) (unknown) (no (unknown) (unknown) Emergency Report (units (unknown) date) unknown) (unknown) (no (unknown) (unknown) Home Medications (units (unknown) date) unknown) (unknown) (no (unknown) (unknown) [facility] (units (unknown) date) [address] unknown) [place] [address] (unknown) (no (unknown) (unknown) Label Comments: (units (unknown) date) unknown) (unknown) (no (unknown) (unknown) Last Admin: (units (un known) date) 06/17/22 00:05 unknown) Dose: 1 bottle (unknown) (no (unknown) (unknown) Previous Rx's (units ( unknown) date) unknown) (unknown) (no (unknown) (unknown) Stop: 06/16/22 (units (unknown) date) 23:57 unknown) (unknown) (no (unknown) (unknown) VOMITING (units (unkno wn) date) unknown) (unknown) (no (unknown) (unknown) Vital Signs - 8 (units (unknown) date) hr unknown) (unknown) (no (unknown) (unknown) [ ] New (units (unkno wn) date) medication written unknown) as a paper prescription (unknown) (no (unknown) (unknown) [ ] No new (units (unk nown) date) medications given unknown) (unknown) (no (unknown) (unknown) [x ] New (units (unkno wn) date) medication unknown) prescriptions sent to your pharmacy: [[facility] in (unknown) (no (unknown) (unknown) angry' (units (unkno wn) date) unknown) (unknown) (no (unknown) (unknown) for me' (units (unkno wn) date) unknown) (unknown) (no (unknown) (unknown) for pain (units (unkno wn) date) unknown) (unknown) (no (unknown) (unknown) inhale 1 to 2 (units ( unknown) date) puffs by mouth unknown) every 4 hours if needed (unknown) (no (unknown) (unknown) take 1 capsule by (units (unknown) date) mouth twice a day unknown) (unknown) (no (unknown) (unknown) take 1 tablet by (units (unknown) date) mouth daily unknown) (unknown) (no (unknown) (unknown) take 2 tablets by (units (unknown) date) mouth every 4 unknown) hours if needed /// MAX 8 TABLETS PER 24 (unknown) (no (unknown) (unknown) (no value) (units (unk nown) date) unknown) (unknown) (no (unknown) (unknown) PNV,calcium (units (un known) date) 71-[id number] acid unknown) [ Plus (calcium carb)] 27 mg iron- 1 mg (unknown) (no (unknown) (unknown) acetaminophen (units ( unknown) date) [Mapap Extra unknown) Strength] 500 mg tablet (unknown) (no (unknown) (unknown) albuterol sulfate (units (unknown) date) [ProAir HFA] 90 unknown) mcg/actuation HFA aerosol inhaler (unknown) (no (unknown) (unknown) benzonatate 100 (units (unknown) date) mg capsule unknown) (unknown) (no (unknown) (unknown) docusate sodium (units (unknown) date) [Stool Softener] unknown) 250 mg capsule (unknown) (no (unknown) (unknown) ferrous sulfate (units (unknown) date) 325 mg (65 mg unknown) iron) tablet,delayed release (DR/EC) (unknown) (no (unknown) (unknown) fluticasone (units (un known) date) propionate 50 unknown) mcg/actuation spray,suspension (unknown) (no (unknown) (unknown) hydrocodone-aceta (units (unknown) date) minophen 5-325 mg unknown) tablet (unknown) (no (unknown) (unknown) labetalol 200 mg (units (unknown) date) tablet unknown) (unknown) (no (unknown) (unknown) lactulose 10 (units (u nknown) date) gram/15 mL unknown) solution (unknown) (no (unknown) (unknown) metoclopramide (units (unknown) date) HCl 10 MG tablet unknown) (unknown) (no (unknown) (unknown) ranitidine HCl (units (unknown) date) 150 mg capsule unknown) (unknown) (no (unknown) (unknown) sertraline 50 mg (units (unknown) date) tablet unknown) (unknown) (no (unknown) (unknown) 06/16/22 (units (unkno wn) date) unknown) (unknown) (no (unknown) (unknown) Medication (units (unk nown) date) Instructions unknown) Recorded (unknown) (no (unknown) (unknown) Medication (units (unk nown) date) Instructions unknown) Recorded Confirmed (unknown) (no (unknown) (unknown) Pain, dental (units (u nknown) date) unknown) (unknown) (no (unknown) (unknown) *Please follow up (units (unknown) date) with your dental unknown) provider in 2-3 days, call for an (unknown) (no (unknown) (unknown) *Return to (units (unk nown) date) Emergency unknown) Department if you should have any new, worsening or (unknown) (no (unknown) (unknown) *What to do: (units (u nknown) date) unknown) (unknown) (no (unknown) (unknown) *You have been (units (unknown) date) diagnosed with unknown) [dental pain status post extraction] (unknown) (no (unknown) (unknown) [id number] (units (unkno wn) date) unknown) (unknown) (no (unknown) (unknown) 05/04/18 (units (unkno wn) date) unknown) (unknown) (no (unknown) (unknown) 12 point review (units (unknown) date) of systems is unknown) negative except for those stated above (unknown) (no (unknown) (unknown) 20:54 (units (unkno wn) date) unknown) (unknown) (no (unknown) (unknown) 42-year-old (units (un known) date) female nonsmoker unknown) with history of prior dental procedures presents (unknown) (no (unknown) (unknown) ABD: Abdomen is (units (unknown) date) soft and unknown) nontender. There is no guarding or rebound. Bowel (unknown) (no (unknown) (unknown) Activity (units (unkno wn) date) Restrictions/Addit unknown) ional Instructions: (unknown) (no (unknown) (unknown) Additionally, you (units (unknown) date) cannot sign legal unknown) documents or perform any duties such as (unknown) (no (unknown) (unknown) Age/Sex: 42 / F (units (unknown) date) unknown) (unknown) (no (unknown) (unknown) Allergy/AdvReac (units (unknown) date) Type Severity unknown) Reaction Status Date / Time (unknown) (no (unknown) (unknown) Blood Pressure (units (unknown) date) 109/80 06/16/22 unknown) 20:54 (unknown) (no (unknown) (unknown) Blood Pressure (units (unknown) date) 109/80 unknown) (unknown) (no (unknown) (unknown) CARDIOVASCULAR: (units (unknown) date) Denies chest pain, unknown) palpitations, orthopnea, edema, (unknown) (no (unknown) (unknown) CHEST: Lungs are (units (unknown) date) clear to unknown) auscultation bilaterally and free of wheezes, rales, (unknown) (no (unknown) (unknown) Chief complaint: (units (unknown) date) Dental/Oral unknown) (unknown) (no (unknown) (unknown) Clinical (units (unkno wn) date) Impression: unknown) (unknown) (no (unknown) (unknown) Course (units (unkno wn) date) unknown) (unknown) (no (unknown) (unknown) : 1980 (units (unknown) date) Acct:[id number] unknown) (unknown) (no (unknown) (unknown) Departure (units (unkn own) date) unknown) (unknown) (no (unknown) (unknown) Discharge Plan (units (unknown) date) unknown) (unknown) (no (unknown) (unknown) Discontinued (units (u nknown) date) Medications unknown) (unknown) (no (unknown) (unknown) ENT: No facial (units (unknown) date) swelling, poor unknown) dentition throughout, recent extraction site (unknown) (no (unknown) (unknown) ER Physician: (units ( unknown) date) Marv Uribe D.O. unknown) (unknown) (no (unknown) (unknown) EXT: Full painless (units (unknown) date) ROM of all unknown) extremities with no loss of sensation or strength. (unknown) (no (unknown) (unknown) EYES: Pupils are (units (unknown) date) equal, round, and unknown) reactive to light and accommodation. (unknown) (no (unknown) (unknown) Exam (units (unkno wn) date) unknown) (unknown) (no (unknown) (unknown) Exam Narrative: (units (unknown) date) unknown) (unknown) (no (unknown) (unknown) Extraoccular (units (u nknown) date) muscles are intact unknown) bilaterally. There is no subconjunctival (unknown) (no (unknown) (unknown) GASTROINTESTINAL: (units (unknown) date) Denies nausea, unknown) vomiting, abdominal pain, diarrhea, (unknown) (no (unknown) (unknown) GEN: AOx3 and in (units (unknown) date) mild distress unknown) (unknown) (no (unknown) (unknown) GENERAL: Denies (units (unknown) date) chills, fatigue, unknown) malaise, fever, sweats. (unknown) (no (unknown) (unknown) : Denies (units (unk nown) date) dysuria, unknown) frequency, incontinence, hematuria, urinary retention. (unknown) (no (unknown) (unknown) General (units (unkno wn) date) unknown) (unknown) (no (unknown) (unknown) HEENT: See HPI (units (unknown) date) unknown) (unknown) (no (unknown) (unknown) HOURS. patient (units (unknown) date) states ran out unknown) (unknown) (no (unknown) (unknown) HPI - Dental/Oral (units (unknown) date) unknown) (unknown) (no (unknown) (unknown) HPI Narrative: (units (unknown) date) unknown) (unknown) (no (unknown) (unknown) History of (units (unk nown) date) Present Illness unknown) (unknown) (no (unknown) (unknown) Hydrocodone (units (unk nown) date) Bitart/Acetaminoph unknown) en (Hydrocodone/Acet 5/325 Prepack) 1 bottle MISC (unknown) (no (unknown) (unknown) Initial Vital (units ( unknown) date) Signs unknown) (unknown) (no (unknown) (unknown) Initial Vital (units ( unknown) date) Signs: unknown) (unknown) (no (unknown) (unknown) Instructions: DI (units (unknown) date) for Dental Pain unknown) (unknown) (no (unknown) (unknown) MUSCULOSKELETAL: (units (unknown) date) denies weakness, unknown) joint pain, or bony pain (unknown) (no (unknown) (unknown) Mode of arrival: (units (unknown) date) Ambulatory unknown) (unknown) (no (unknown) (unknown) Jd Dubon MD (units (unknown) date) [Primary Care unknown) Provider] - (unknown) (no (unknown) (unknown) NEUROLOGIC: (units (un known) date) Denies weakness, unknown) headache, numbness, change in speech, confusion, (unknown) (no (unknown) (unknown) Narrative (units (unkn own) date) unknown) (unknown) (no (unknown) (unknown) Narrative: (units (unk nown) date) unknown) (unknown) (no (unknown) (unknown) New (units (unkno wn) date) unknown) (unknown) (no (unknown) (unknown) No Action (units (unkn own) date) unknown) (unknown) (no (unknown) (unknown) Merna ] (units (u nknown) date) unknown) (unknown) (no (unknown) (unknown) Ondansetron HCl (units (unknown) date) (Ondansetron 4 Mg unknown) Odt Prepack) 1 bottle MISC SEEINSTR ONE (unknown) (no (unknown) (unknown) Ordered: (units (unkno wn) date) unknown) (unknown) (no (unknown) (unknown) Orders (units (unkno wn) date) unknown) (unknown) (no (unknown) (unknown) Oxygen Delivery (units (unknown) date) Method 06/16/22 unknown) 20:54 (unknown) (no (unknown) (unknown) Oxygen Delivery (units (unknown) date) Method Room Air unknown) (unknown) (no (unknown) (unknown) PSYCHIATRIC: No (units (unknown) date) concerning unknown) psychosocial issues. (unknown) (no (unknown) (unknown) Patient (units (unkno wn) date) Disposition: Home unknown) (unknown) (no (unknown) (unknown) Patient History (units (unknown) date) unknown) (unknown) (no (unknown) (unknown) Patient: (units (unkno wn) date) HughesBrie N unknown) MR#: [id number] (unknown) (no (unknown) (unknown) Penicillins (units (un known) date) [PENICILLINS] unknown) Allergy Severe NAUSEA / Verified 05/04/18 13:49 (unknown) (no (unknown) (unknown) Please understand (units (unknown) date) that we cannot unknown) provide further refills of narcotics or (unknown) (no (unknown) (unknown) Prescriptions: (units (unknown) date) unknown) (unknown) (no (unknown) (unknown) Pulse Oximetry 97 (units (unknown) date) 06/16/22 20:54 unknown) (unknown) (no (unknown) (unknown) Pulse Oximetry 97 (units (unknown) date) unknown) (unknown) (no (unknown) (unknown) Pulse Rate 78 (units ( unknown) date) 06/16/22 20:54 unknown) (unknown) (no (unknown) (unknown) Pulse Rate 78 (units ( unknown) date) unknown) (unknown) (no (unknown) (unknown) RESPIRATORY: (units (u nknown) date) Denies dyspnea, unknown) cough, wheezing, hemoptysis, sputum. (unknown) (no (unknown) (unknown) Referrals: (units (unk nown) date) unknown) (unknown) (no (unknown) (unknown) Related Data (units (u nknown) date) unknown) (unknown) (no (unknown) (unknown) Respiratory Rate (units (unknown) date) 17 06/16/22 20:54 unknown) (unknown) (no (unknown) (unknown) Respiratory Rate (units (unknown) date) 17 unknown) (unknown) (no (unknown) (unknown) Review of Systems (units (unknown) date) unknown) (unknown) (no (unknown) (unknown) SEEINSTR ONE (units (u nknown) date) unknown) (unknown) (no (unknown) (unknown) SKIN: Denies (units (u nknown) date) rash, skin unknown) lesions, or other (unknown) (no (unknown) (unknown) SKIN: Warm, pink, (units (unknown) date) and dry. No unknown) erythema or rash (unknown) (no (unknown) (unknown) She is not dizzy (units (unknown) date) nor weak or unknown) lightheaded. (unknown) (no (unknown) (unknown) She states that (units (unknown) date) she had a left unknown) upper premolar removed earlier in the day and was (unknown) (no (unknown) (unknown) Signed By: (units (unk nown) date) unknown) (unknown) (no (unknown) (unknown) Smoking Status: (units (unknown) date) Never smoker unknown) (unknown) (no (unknown) (unknown) Smoking Status: (units (unknown) date) Never smoker unknown) (unknown) (no (unknown) (unknown) Social History (units (unknown) date) (Reviewed 06/18/22 unknown) @ 02:15 by Marv Uribe DO) (unknown) (no (unknown) (unknown) Source: patient (units (unknown) date) unknown) (unknown) (no (unknown) (unknown) Stated complaint: (units (unknown) date) Severe mouth pain unknown) following tooth extraction (unknown) (no (unknown) (unknown) Substance Use (units ( unknown) date) Type: does not use unknown) (unknown) (no (unknown) (unknown) Temperature 97.9 (units (unknown) date) F 06/16/22 20:54 unknown) (unknown) (no (unknown) (unknown) Temperature 97.9 (units (unknown) date) F unknown) (unknown) (no (unknown) (unknown) Time Seen by (units (u nknown) date) Provider: 06/16/22 unknown) 23:50 (unknown) (no (unknown) (unknown) Visit Report (units (u nknown) date) Forms: Patient unknown) Portal/API (unknown) (no (unknown) (unknown) Vital Signs (units (un known) date) unknown) (unknown) (no (unknown) (unknown) Vital signs: (units (u nknown) date) unknown) (unknown) (no (unknown) (unknown) While on these (units (unknown) date) medications you unknown) cannot drive or operate heavy machinery. (unknown) (no (unknown) (unknown) You have been (units ( unknown) date) prescribed a short unknown) course of narcotic medications. These are (unknown) (no (unknown) (unknown) [ERYTHROMYCIN (units ( unknown) date) BASE] unknown) (unknown) (no (unknown) (unknown) [From Sudafed] (units (unknown) date) unknown) (unknown) (no (unknown) (unknown) acetaminophen 500 (units (unknown) date) mg tablet 2 tab PO unknown) Q4H PRN Pain, Mild 05/04/18 05/04/18 (unknown) (no (unknown) (unknown) advisable to (units (u nknown) date) discuss stool unknown) softeners with the pharmacist when you olive picker your (unknown) (no (unknown) (unknown) aerosol inhaler (units (unknown) date) Shortness Of unknown) Breath (unknown) (no (unknown) (unknown) albuterol sulfate (units (unknown) date) 90 mcg/actuation 1 unknown) - 2 puff inhalation Q4H PRN 05/04/18 (unknown) (no (unknown) (unknown) alcohol intake (units (unknown) date) frequency: 0-2 unknown) drinks per day (unknown) (no (unknown) (unknown) and hopes to get (units (unknown) date) something to help. unknown) She denies any facial swelling nor fever or (unknown) (no (unknown) (unknown) appointment. Let (units (unknown) date) them know you were unknown) seen in the Emergency Department and that we (unknown) (no (unknown) (unknown) ask that you be (units (unknown) date) seen in follow up. unknown) (unknown) (no (unknown) (unknown) aspirin [ASPIRIN] (units (unknown) date) Allergy Unknown unknown) Verified 05/04/18 13:49 (unknown) (no (unknown) (unknown) benzonatate 100 (units (unknown) date) mg capsule 1 cap unknown) PO TID PRN Cough 05/04/18 05/04/18 (unknown) (no (unknown) (unknown) chills. She has (units (unknown) date) no nausea, unknown) vomiting or difficulty swallowing. She states on (unknown) (no (unknown) (unknown) codeine [CODEINE] (units (unknown) date) Allergy Severe unknown) NAUSEA / Verified 05/04/18 13:49 (unknown) (no (unknown) (unknown) concerning (units (unk nown) date) symptoms, such as unknown) [fever greater than 101 F, shaking chills, (unknown) (no (unknown) (unknown) constipation, (units ( unknown) date) melena. unknown) (unknown) (no (unknown) (unknown) controlled (units (unk nown) date) substances through unknown) the ED and your pain management will need to be (unknown) (no (unknown) (unknown) docusate sodium (units (unknown) date) 250 mg capsule 1 unknown) cap PO DAILY 05/04/18 05/04/18 (unknown) (no (unknown) (unknown) erythromycin base (units (unknown) date) Allergy Severe unknown) SWELLING Verified 05/04/18 13:49 (unknown) (no (unknown) (unknown) ferrous sulfate (units (unknown) date) 325 mg (65 mg 1 unknown) tab PO DAILY 05/04/18 05/04/18 (unknown) (no (unknown) (unknown) fluticasone (units (un known) date) propionate 50 1 - unknown) 2 spray intranasal DAILY 05/04/18 05/04/18 (unknown) (no (unknown) (unknown) gallops. There is (units (unknown) date) no chest wall unknown) tenderness. (unknown) (no (unknown) (unknown) hemorrhage or (units ( unknown) date) exudate. unknown) (unknown) (no (unknown) (unknown) hydrocodone 5 (units ( unknown) date) mg-acetaminophen unknown) 325 1 tab PO Q4-6H PRN pain #10 tabs 06/16/22 (unknown) (no (unknown) (unknown) iron) (units (unkno wn) date) tablet,delayed unknown) release (unknown) (no (unknown) (unknown) labetalol 200 mg (units (unknown) date) tablet 1 tab PO unknown) Q6H 05/04/18 05/04/18 (unknown) (no (unknown) (unknown) lactulose 10 (units (u nknown) date) gram/15 mL oral 15 unknown) ml PO EVERY OTHER DAY 05/04/18 05/04/18 (unknown) (no (unknown) (unknown) latex [LATEX] (units ( unknown) date) Allergy Unknown unknown) Verified 05/04/18 13:49 (unknown) (no (unknown) (unknown) mcg/actuation (units ( unknown) date) nasal unknown) (unknown) (no (unknown) (unknown) metoclopramide (units (unknown) date) HCl 10 mg tablet unknown) 10 mg PO TID PRN Nausea 05/04/18 05/04/18 (unknown) (no (unknown) (unknown) mg tablet (units (unkn own) date) unknown) (unknown) (no (unknown) (unknown) no.72-iron 27 (units ( unknown) date) mg-folic acid 1 mg unknown) (unknown) (no (unknown) (unknown) noted, no (units (unkn own) date) significant unknown) erythema, active bleeding or drainage noted (unknown) (no (unknown) (unknown) occasion a clot (units (unknown) date) falls out of the unknown) socket and she bleeds a bit but not for long. (unknown) (no (unknown) (unknown) or rhonchi. Heart (units (unknown) date) rate is regular unknown) rhythm, there are no murmurs, clicks, rubs, or (unknown) (no (unknown) (unknown) oxycodone [From (units (unknown) date) OXYCONTIN] AdvReac unknown) Mild 'Ineffective Verified 05/04/18 13:49 (unknown) (no (unknown) (unknown) potentially (units (un known) date) dangerous and unknown) addictive medications that should be used carefully. (unknown) (no (unknown) (unknown) vitamin (units (unknown) date) with calcium 1 tab unknown) PO DAILY 05/04/18 05/04/18 (unknown) (no (unknown) (unknown) prescription. (units ( unknown) date) unknown) (unknown) (no (unknown) (unknown) pseudoephedrine (units (unknown) date) Allergy Verified unknown) 05/04/18 13:49 (unknown) (no (unknown) (unknown) ranitidine HCl (units (unknown) date) 150 mg capsule 1 unknown) cap PO BID 05/04/18 05/04/18 (unknown) (no (unknown) (unknown) seizures, (units (unkn own) date) incoordination. unknown) (unknown) (no (unknown) (unknown) sent home only (units ( unknown) date) with instructions unknown) to take Tylenol and Motrin. She is having pain (unknown) (no (unknown) (unknown) sertraline 50 mg (units (unknown) date) tablet 50 mg PO unknown) QPM 05/04/18 05/04/18 (unknown) (no (unknown) (unknown) solution (units (unkno wn) date) unknown) (unknown) (no (unknown) (unknown) sounds are normal (units (unknown) date) in all 4 unknown) quadrants. There is no mass or organomegaly. (unknown) (no (unknown) (unknown) spray,suspension (units (unknown) date) unknown) (unknown) (no (unknown) (unknown) tablet (units (unkno wn) date) unknown) (unknown) (no (unknown) (unknown) tablet (units (unkno wn) date) unknown) (unknown) (no (unknown) (unknown) this. Many people (units (unknown) date) get constipated on unknown) narcotic medications so it would be (unknown) (no (unknown) (unknown) through your (units (u nknown) date) Primary Care unknown) Provider (unknown) (no (unknown) (unknown) with a chief (units (u nknown) date) complaint of a unknown) recent dental extraction and now worsening pain. (unknown) (no (unknown) (unknown) worsening pain, (units (unknown) date) persistent unknown) vomiting or other bothersome symptoms] (unknown) (no (unknown) (unknown) zolpidem [From (units (unknown) date) AMBIEN] AdvReac unknown) Mild 'Makes me Verified 05/04/18 13:49 Social History No information. Vital Signs No information.
[2022-08-14 10:53] LABS: BASOPHILS % (AUTO) 0.8 %; EOSINOPHILS # (AUTO) 0.1 10^3/uL (0.0-0.7); EOSINOPHILS % (AUTO) 1.6 %; HCT - HEMATOCRIT 35.8 % (37.0-47.0); HGB - HEMOGLOBIN 12.5 g/dL (12.0-16.0); LYMPHOCYTES # (AUTO) 1.4 10^3/uL (1.5-3.5); LYMPHOCYTES % (AUTO) 27.2 %; MEAN CORPUSCULAR HEMOGLOBIN 30.3 pg (27.0-31.0); MEAN CORPUSCULAR HGB CONC 34.9 g/dL (32.0-36.0); MEAN CORPUSCULAR VOLUME 86.9 fL (81.0-99.0); MONOCYTES # (AUTO) 0.4 10^3/uL (0.0-1.0); MONOCYTES % (AUTO) 6.8 %; NEUTROPHILS # (AUTO) 3.3 10^3/uL (1.5-6.6); NEUTROPHILS % (AUTO) 63.4 %; PLT - PLATELET COUNT 289 10^3/uL (130-450); RED BLOOD COUNT 4.12 10^6/uL (4.20-5.40); WHITE BLOOD COUNT 5.1 x10^3/uL (4.8-10.8)
[2022-08-14 11:01] LABS: BILIRUBIN,URINE NEGATIVE (NEGATIVE); GLUCOSE, URINE (UA) NEGATIVE (NEGATIVE); KETONES,URINE (UA) NEGATIVE (NEGATIVE); LEUKOCYTE ESTERASE, URINE NEGATIVE (NEGATIVE); NITRITE,URINE NEGATIVE (NEGATIVE); OCCULT BLOOD,URINE MODERATE (NEGATIVE); PH,URINE 7.5 PH (5.0-7.5); PROTEIN,URINE NEGATIVE (NEGATIVE); UROBILINOGEN,URINE 0.2 (NORMAL) E.U./dL (NORMAL)
[2022-08-14 11:03] LABS: CLARITY,URINE CLEAR (CLEAR)
[2022-08-14 11:04] LABS: ALBUMIN 4.5 g/dL (3.2-5.5); ALBUMIN/GLOBULIN RATIO 1.6 (1.0-2.2); BILIRUBIN,TOTAL 0.6 mg/dL (0.2-1.0); CALCIUM 9.4 mg/dL (8.5-10.3); CREATININE 0.8 mg/dL (0.4-1.0); POTASSIUM 4.3 mmol/L (3.5-5.0); TOTAL PROTEIN 7.3 g/dL (6.7-8.2)
[2022-08-14 11:16] LABS: BACTERIA,URINE Rare /HPF (None Seen); SQUAMOUS EPITHELIAL CELL,UR RARE Squamous (<= Few); WBC,URINE 0-3 /HPF (0-5)
--- NOTE | 2022-08-14 12:35 | ED Physician Documentation ---
History of Present Illness - Stated complaint Stated Complaint: LOWER ABD SUTURE PX - Chief complaint Chief Complaint: Wound - Additonal information Additional information: 42-year-old female presents emergency department for evaluation of possible surgical wound incision. She underwent a laparoscopic hysterectomy on [address] Marv Cespedes. She had been recovering eventfully at home when she began to have pain around the lower midline pelvic laparoscopic incision site. Over the course of the night the pain became more severe and today she noticed that the suture had fallen out. She describes some yellow purulent material and debris. Over the last 9 days she has been having some lower abdominal pain but not more than she had anticipated. She continues to have a small amount of vaginal bleeding though she describes that this is decreasing in quantity each day. No fevers or vomiting. 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 : None HEENT: None Psych: Depression, Anxiety Musculoskeletal: None Derm: None - Past Surgical History Past Surgical History: Yes /ENGINEERING PROJECT DESIGNER: section, Hysterectomy - Present Medications Home Medications: Ambulatory Orders Medication Instructions Recorded Confirmed Albuterol Sulfate [Proair Hfa 1 - 2 puffs PO QID PRN 07/31/22 07/31/22 Inhaler] HYDROcod/ACETAM 5/325 [[place] 5/325] 5 mg PO HS 08/05/22 08/05/22 diphenhydrAMINE [Benadryl] 25 mg PO HS 08/05/22 08/05/22 Acetaminophen [Acetaminophen Extra 1,000 mg PO Q8H PRN #60 tablet 08/06/22 Strength] Docusate Sodium 100Mg Capsule 100 - 200 mg PO BID PRN #60 cap 08/06/22 [Colace 100Mg Capsule] Ibuprofen [Motrin] 600 mg PO Q6H PRN #30 tab 08/06/22 Ondansetron Odt [Zofran Odt] 4 mg TL Q6H PRN #20 tablet 08/06/22 oxyCODONE [Roxicodone] 2.5 - 5 mg PO Q4H PRN #10 tablet 08/06/22 - Allergies Allergies/Adverse Reactions: Allergies Allergy/AdvReac Type Severity Reaction Status Date / Time amoxicillin Allergy Unknown Verified 08/14/22 10:37 bee venom protein (honey bee) Allergy Unknown Verified 08/14/22 10:37 hydromorphone HCl * Allergy Nausea Verified 08/14/22 10:37 [From Dilaudid] iodine Allergy Respiratory Verified 08/14/22 10:37 latex Allergy Hives Verified 08/14/22 10:37 mold Allergy Unknown Verified 08/14/22 10:37 oxycodone HCl * Allergy Emesis Verified 08/14/22 10:37 [From Percocet] Penicillins Allergy Hives Verified 08/14/22 10:37 aspirin AdvReac Intermediate Epistaxis Verified 08/14/22 10:37 erythromycin base AdvReac Intermediate SWELLING Verified 08/14/22 10:37 codeine AdvReac Emesis Verified 08/05/22 10:12 pseudoephedrine HCl * AdvReac Edema Verified 08/05/22 10:12 [From Sudafed] - Social History Does the pt smoke?: No Smoking Status: Never smoker Does the pt drink ETOH?: Yes Does the pt have substance abuse?: Yes - Immunizations Immunizations are current?: Yes - POLST Patient has POLST: No PD ED PE NORMAL - General General: Alert and oriented X 3, No acute distress - HEENT HEENT: Atraumatic - Cardiac Cardiac: RRR, No murmur - Respiratory Respiratory: Clear bilaterally - Abdomen Abdomen: Normal bowel sounds, Soft, Non tender - Derm Derm: Normal color, Warm and dry, Other (3 laparoscopic incision sites are seen on the abdomen. Bilateral lower pelvic sites intact and clean with a small amount of surrounding ecchymosis. Midline incision has opened. Small amount of serous drainage noted. Small amount of surrounding erythema without induration. Mild tenderness) Results - Vitals Vitals: Vital Signs - 24 hr 08/14/22 10:34 Temperature 36.0 C L Heart Rate 79 Respiratory 16 Rate Blood Pressure 126/80 O2 Saturation 98 Oxygen O2 Source Room air - Labs Labs: Laboratory Tests 08/14/22 08/14/22 08/14/22 10:46 10:46 10:49 WBC 5.1 RBC 4.12 L Hgb 12.5 Hct 35.8 L MCV 86.9 MCH 30.3 MCHC 34.9 RDW 13.0 Plt Count 289 MPV 9.0 Neut # (Auto) 3.3 Lymph # (Auto) 1.4 L [place] # (Auto) 0.4 Eos # (Auto) 0.1 Baso # (Auto) 0.0 Absolute Nucleated RBC 0.00 Nucleated RBC % 0.0 Sodium 142 Potassium 4.3 Chloride 108 Carbon Dioxide 26 Anion Gap 8.0 BUN 17 Creatinine 0.8 Estimated GFR (MDRD) 79 L Glucose 96 Calcium 9.4 Total Bilirubin 0.6 AST 16 ALT 20 Alkaline Phosphatase 111 Total Protein 7.3 Albumin 4.5 Globulin 2.8 Albumin/Globulin Ratio 1.6 Lipase 45 Urine Color YELLOW Urine Clarity CLEAR Urine pH 7.5 Ur Specific [place] 1.015 Urine Protein NEGATIVE Urine Glucose (UA) NEGATIVE Urine Ketones NEGATIVE Urine Occult Blood MODERATE H Urine Nitrite NEGATIVE Urine Bilirubin NEGATIVE Urine Urobilinogen 0.2 (NORMAL) Ur Leukocyte Esterase NEGATIVE Urine RBC 11-25 H Urine WBC 0-3 Ur Squamous Epith Cells RARE Squamous Urine Bacteria Rare Ur Microscopic Review INDICATED Urine Culture Comments NOT INDICATED PD MEDICAL DECISION MAKING - ED course Complexity details: reviewed results, re-evaluated patient, considered differential, d/w patient, d/w family, d/w [employer] financial[employer] consultant (HERMANN) ED course: 42-year-old female who is 9 days status post laparoscopic hysterectomy presents emergency department for evaluation of her lower abdominal laparoscopic incision where a suture came out early this morning. She reports that mucopurulent fluid drained. On exam where the midline incision stitch has fallen out there is a small amount of erythema but no induration. Small amount of serous drainage was noted. She does have some mild tenderness and not more than 1 would expect post surgery. No fevers. Her CBC shows no leukocytosis. Electrolytes are unremarkable. I briefly discussed this case with Dr. Marv Cespedes the OB who did the hysterectomy. As he was in-house he did come to the bedside and evaluated the wound. He made the recommendation that Steri-Strips be placed. He will continue to follow the patient in clinic. Given lack of fevers, leukocytosis secondary findings to suggest acute cellulitis or seroma development will defer any antibiotics. Emergent return precautions otherwise discussed. Departure - Departure Disposition: 01 Home, Self Care Clinical Impression: Status post hysterectomy, Visit for wound check Condition: Stable Record reviewed to determine appropriate education?: Yes Comments: Brie you are seen today in the emergency department because a suture has come out from your recent laparoscopic incision. We did place Steri-Strips across this. You can continue your usual care as you were at home. Today in the emergency department your labs showed no findings to suggest infection. Though there is a small amount of redness surrounding the incision site this is more consistent with inflammation than active infection. Continue follow-up with Dr. Cespedes on the as already scheduled. Return immediately to the ER if you have any fevers worsening symptoms uncontrolled vomiting or severe abdominal pain.
--- NOTE | 2022-08-15 11:33 | CONSULTATION NOTE ---
Surgery Consult - Consult Date Consult Date: 08/14/22 Requesting Provider: DION Melo - Home Meds/Allergies Home Medications: Patient History Medication Instructions Recorded Confirmed Albuterol Sulfate [Proair Hfa 1 - 2 puffs PO QID PRN 07/31/22 07/31/22 Inhaler] HYDROcod/ACETAM 5/325 [[place] 5/325] 5 mg PO HS 08/05/22 08/05/22 diphenhydrAMINE [Benadryl] 25 mg PO HS 08/05/22 08/05/22 Allergies/Adverse Reactions: Allergies Allergy/AdvReac Type Severity Reaction Status Date / Time amoxicillin Allergy Unknown Verified 08/14/22 10:37 bee venom protein (honey bee) Allergy Unknown Verified 08/14/22 10:37 hydromorphone HCl * Allergy Nausea Verified 08/14/22 10:37 [From Dilaudid] iodine Allergy Respiratory Verified 08/14/22 10:37 latex Allergy Hives Verified 08/14/22 10:37 mold Allergy Unknown Verified 08/14/22 10:37 oxycodone HCl * Allergy Emesis Verified 08/14/22 10:37 [From Percocet] Penicillins Allergy Hives Verified 08/14/22 10:37 aspirin AdvReac Intermediate Epistaxis Verified 08/14/22 10:37 erythromycin base AdvReac Intermediate SWELLING Verified 08/14/22 10:37 codeine AdvReac Emesis Verified 08/05/22 10:12 pseudoephedrine HCl * AdvReac Edema Verified 08/05/22 10:12 [From Sudafed] - Vital Signs Vital Signs: Last Vital Signs Temp 96.8 F L 08/14/22 10:34 Pulse 79 08/14/22 10:34 Resp 16 08/14/22 10:34 BP 126/80 08/14/22 10:34 Pulse Ox 98 08/14/22 10:34 O2 Flow Rate Patient is a 42-year-old female status post total laparoscopic hysterectomy on 08/05/2022. She presents today with an incision that opened up. She says she got up and noticed that a suture was open and removed it. There was a small amount of pus, so she put a bandage over it. She called my office, but I was in surgery, so she presented to the ED. she denies fever and chills. No continued drainage. Mild pain. Past medical history Abnormal uterine bleeding Anemia Hepatic hemangioma Past surgical history Previous section x2 Bilateral salpingectomy EGD x2 Family history Noncontributory Social history Denies tobacco, alcohol, drugs. She is a former smoker. Physical Constitutional: alert, no acute distress, well hydrated, well developed, well nourished, appropriate dress. Cardiovascular: Regular rate and rhythm. Respiratory: no respiratory distress. Abdomen: Nondistended, nontender. Infraumbilical, right and left lower quadrant incisions intact and healing well. Suprapubic incision opened approximately 1/2 to 1 cm with exposed subcutaneous tissue seen. Depth less than 1 cm. No active bleeding or drainage. No significant erythema. Psych: affect and mood appropriate, normal interaction, good eye contact. Assessment and plan 42-year-old female with superficial dehiscence of surgical site 1. Dehiscence of surgical site -Recommend Steri-Strip placement, although wound will likely heal by secondary intention. Discussed that this may be a slightly larger scar, but will likely not lead to long-term complications. Should keep the area clean and monitor for signs of redness, discharge, fever, chills. Patient has upcoming visit with me in clinic. Should call for any concerning symptoms prior to that. - Lab Results Result Diagrams: 08/14/22 10:46 08/14/22 10:46
== END 2022-08-14 13:30 | disposition home or self-care (01) ==
LOC: ED 10:29
DX: Z48.02 Encounter for removal of sutures (principal); Z90.710 Acquired absence of both cervix and uterus
CPT/HCPCS: 36415; 80053; 81001; 81003; 83690; 85025; 87086; 99282; 99283

== ENCOUNTER 2023-01-09 16:22 | Outpatient (CLI) | payer MEDICAID ==
--- NOTE | 2023-01-09 20:28 | Ultrasound Report ---
PROCEDURE: Pelvic w/Transvaginal INDICATIONS: PELVIC PAIN TECHNIQUE: Real-time scanning was performed of the pelvic organs, with image documentation. Additional endovagi nal scanning was necessary due to incomplete visualization of the adnexal and endometrial structures by transabdominal scanning. COMPARISON: None. FINDINGS: Uterus: Surgically absent Ovaries: The right ovary measures 2.3 x 2.3 x 1.3 cm, with a calculated ovarian volume of 3.6 cc. T he left ovary measures 2.2 x 1.3 x 2.1 cm, with a calculated ovarian volume of 3.1 cc. The ovaries h ave a normal sonographic appearance. Less than 12 follicles can be seen in each ovary. No adnexal m asses are seen. Other: No pathologic free abdominal or pelvic fluid. IMPRESSION: Remote hysterectomy. Otherwise unremarkable pelvic ultrasound. Reviewed by: Gavino Qiu MD on 01/09/2023 8:26 PM PST Approved by: Gavino Qiu MD on 01/09/2023 8:26 PM PST Station ID: [id number]
== END 2023-01-09 16:23 | disposition home or self-care (01) ==
LOC: DI 16:22
PROVIDERS: ATTEND Obstetrics & Gynecology
DX: R10.2 Pelvic and perineal pain (principal); Z90.710 Acquired absence of both cervix and uterus

== ENCOUNTER 2023-06-17 09:40 | Outpatient (CLI) | payer MEDICAID ==
[2023-06-17 11:59] LABS: INR 1.1 (0.8-1.2); PT - PROTHROMBIN TIME 12.3 secs (9.9-12.6)
[2023-06-17 12:18] LABS: BASOPHILS % (AUTO) 0.6 %; EOSINOPHILS # (AUTO) 0.1 10^3/uL (0.0-0.7); EOSINOPHILS % (AUTO) 1.5 %; HCT - HEMATOCRIT 42.9 % (37.0-47.0); HGB - HEMOGLOBIN 14.3 g/dL (12.0-16.0); LYMPHOCYTES # (AUTO) 1.7 10^3/uL (1.5-3.5); LYMPHOCYTES % (AUTO) 37.3 %; MEAN CORPUSCULAR HEMOGLOBIN 29.1 pg (27.0-31.0); MEAN CORPUSCULAR HGB CONC 33.3 g/dL (32.0-36.0); MEAN CORPUSCULAR VOLUME 87.4 fL (81.0-99.0); MEAN PLATELET VOLUME 9.9 fL (7.9-10.8); MONOCYTES # (AUTO) 0.4 10^3/uL (0.0-1.0); MONOCYTES % (AUTO) 7.9 %; NEUTROPHILS # (AUTO) 2.4 10^3/uL (1.5-6.6); NEUTROPHILS % (AUTO) 52.3 %; PLT - PLATELET COUNT 238 10^3/uL (130-450); RED BLOOD COUNT 4.91 10^6/uL (4.20-5.40); RED CELL DISTRIBUTION WIDTH 12.6 % (12.0-15.0); WHITE BLOOD COUNT 4.7 x10^3/uL (4.8-10.8)
[2023-06-17 13:19] LABS: ALBUMIN 4.1 g/dL (3.2-5.5); ALBUMIN/GLOBULIN RATIO 1.6 (1.0-2.2); BILIRUBIN,TOTAL 0.5 mg/dL (0.2-1.0); CREATININE 0.7 mg/dL (0.6-1.3); POTASSIUM 4.1 mmol/L (3.5-4.5); TOTAL PROTEIN 6.6 g/dL (6.4-8.9)
== END 2023-06-17 09:41 | disposition home or self-care (01) ==
LOC: LAB.N 09:40
PROVIDERS: ATTEND Family Medicine
DX: D18.03 Hemangioma of intra-abdominal structures (principal)
CPT/HCPCS: 36415; 80053; 83690; 85025; 85610

== ENCOUNTER 2023-07-05 09:02 | Outpatient (CLI) | payer MEDICAID ==
--- NOTE | 2023-07-05 10:57 | Ultrasound Report ---
PROCEDURE: Abdomen Complete INDICATIONS: HEPATIC HEMANGIOMAS TECHNIQUE: Real-time scanning was performed of the abdominal and retroperitoneal organs, with image documentatio n. COMPARISON: 01/16/2022 FINDINGS: Liver: Focal echogenicity in the right hepatic lobe near the dome measures 5.6 x 7.1 x 7.0 cm, previ ously 8.0 x 4.9 x 5.3 cm Gallbladder: Unremarkable. Biliary ducts: Intrahepatic bile ducts are non-dilated. Extrahepatic bile duct caliber measures mm. Normal is 6-7 mm or less in diameter, or 10 mm or less post-cholecystectomy. Pancreas: Visualized portions of the pancreas are sonographically normal. Spleen: Spleen is normal in size and homogeneous in echotexture. Kidneys: Kidneys are normal in size and echotexture. Right kidney measures cm long; left kidney david sures cm long. No hydronephrosis or nephrolithiasis. No solid masses. No complex renal cystic lesio ns which require follow-up. Aorta: Visualized aorta is normal in caliber at less than 3 cm. Iliacs: Proximal common iliac arteries are normal in caliber at less than 2.5 cm. IVC: Intrahepatic inferior vena cava is patent. Miscellaneous: No free abdominal fluid. IMPRESSION: Hepatic hemangioma slightly increased in size compared to the prior exam Reviewed by: Tereso Deluna MD on 07/05/2023 9:55 AM LESLY Approved by: Tereso Deluna MD on 07/05/2023 9:55 AM LESLY Station ID: [id number]
== END 2023-07-05 09:03 | disposition home or self-care (01) ==
LOC: DI 09:02
PROVIDERS: ATTEND Family Medicine
DX: D18.03 Hemangioma of intra-abdominal structures (principal)

== ENCOUNTER 2023-12-04 11:29 | Outpatient (CLI) | payer MEDICAID ==
--- NOTE | 2023-12-08 11:07 | Mammography Report ---
BILATERAL DIGITAL SCREENING MAMMOGRAM 3D/2D: 12/04/2023 CLINICAL: Routine screening. Comparison is made to exam dated: 08/28/2015 mammogram - [facility]. Both breasts are heterogeneously dense, which may obscure small masses (category c / 51-75% glandular tissue). No significant masses, calcifications, or other findings are seen in either breast. There has been no significant interval change. IMPRESSION: NEGATIVE There is no mammographic evidence of malignancy. A 1 year screening mammogram is recommended. Based on Tyrer-Cuzick model (a risk assessment model), the patient's lifetime risk is 22.0% and her 1 0 year risk is 3.2%. If a patient has an elevated risk, a more comprehensive evaluation should be con sidered and/or a referral to a genetic counselor. The [place] [employer], [place] [employer], and NCCN Guidelines advise the consideration of Breast MRI as an adjunct to screening mammog sandor in patients whose "Lifetime risk to develop breast cancer" is 20% or higher. This exam was interpreted at Station ID: [id number]. NOTE: For mammograms, a report in lay terms will be sent to the patient. Approximately 15% of breast malignancies will not be visualized mammographically. In the management of a palpable breast mass, a negative mammogram must not discourage biopsy of a clinically suspicious lesion. Electronically Signed By: Babak Abad M.D. [email or web address]/sea:12/07/2023 17:08:01 ACR BI-RADS Category 1: Negative 3341F PARENCHYMAL PATTERN: (D) - The breast(s) demonstrate(s) heterogeneously dense fibroglandular paryesyy ma. BI-RADS CATEGORY: (1) - 1 Mammogram [id number] 1 year screening LATERALITY: (B)
== END 2023-12-04 11:30 | disposition home or self-care (01) ==
LOC: MERGE 11:29 → DI 11:29
PROVIDERS: ATTEND Nurse Practitioner
DX: Z12.31 Encounter for screening mammogram for malignant neoplasm of breast (principal); R92.333 Mammographic heterogeneous density, bilateral breasts

== ENCOUNTER 2024-02-19 18:46 | Emergency (ER) | payer MEDICAID ==
--- NOTE | 2024-02-19 19:09 | ED Physician Documentation ---
PD HPI HEENT - Stated complaint Stated Complaint: TOOTH PX - Chief complaint Chief Complaint: Heent - Additional information Additional information: 43-year-old female presents emergency department for right dental pain. Patient had tooth extraction on Thursday she was prescribed antibiotics and has not picked up the antibiotics since then. She went to urgent care yesterday and said that they gave her a Toradol shot and it did not help her pain since then she has still not picked up her antibiotics and she now has right facial swelling and increased ongoing pain. No fevers or chills. 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 MECHANIC: Hysterectomy, section - Present Medications Home Medications: Ambulatory Orders Medication Instructions Recorded Confirmed Albuterol Sulfate [Proair Hfa 1 - 2 puffs PO QID PRN 07/31/22 02/19/24 Inhaler] Sertraline [Zoloft] 50 mg PO DAILY 02/19/24 02/19/24 hydrOXYzine HCL [Hydroxyzine HCl] 25 mg PO HS 02/19/24 02/19/24 lamoTRIgine [Lamictal Xr] 50 mg PO HS 02/19/24 02/19/24 - Allergies Allergies/Adverse Reactions: Allergies Allergy/AdvReac Type Severity Reaction Status Date / Time amoxicillin Allergy Unknown Verified 02/19/24 19:11 bee venom protein (honey bee) Allergy Unknown Verified 02/19/24 19:11 hydromorphone HCl * Allergy Nausea Verified 02/19/24 19:11 [From Dilaudid] iodine Allergy Respiratory Verified 02/19/24 19:11 latex Allergy Hives Verified 02/19/24 19:11 mold Allergy Unknown Verified 02/19/24 19:11 oxycodone HCl * Allergy Emesis Verified 02/19/24 19:11 [From Percocet] Penicillins Allergy Hives Verified 02/19/24 19:11 aspirin AdvReac Intermediate Epistaxis Verified 02/19/24 19:11 erythromycin base AdvReac Intermediate SWELLING Verified 02/19/24 19:11 codeine AdvReac Emesis Verified 02/19/24 19:11 pseudoephedrine HCl * AdvReac Edema Verified 02/19/24 19:11 [From Sudafed] - Social History Does the pt smoke?: No Smoking Status: Never smoker Does the pt drink ETOH?: Yes Does the pt have substance abuse?: Yes - Immunizations Immunizations are current?: Yes - POLST Patient has POLST: No PD ED PE NORMAL - Vitals Vital signs reviewed: Yes - General General: Alert and oriented X 3, No acute distress, Well developed/nourished - HEENT HEENT: Other (Right facial swelling, Right lower molar tooth extraction no purulent drainage, No mastoiditis) Results - Vitals Vitals: Vital Signs - 24 hr 02/19/24 18:52 Temperature 36.3 C L Heart Rate 92 Respiratory 16 Rate Blood Pressure 134/78 H O2 Saturation 98 Oxygen O2 Source Room air PD Medical Decision Making - ED course ED course: Patient presents for dental pain After dental extraction and not taking antibiotics as prescribed. Patient not immunosuppressed, afebrile and well appearing with patent airway, have low suspicion for deep space infection or any concern for airway compromise. Based on history, physical, and work up. No evidence No evidence of RPA, METAL TURNER, Ludwigs angina, periapical abscess. Offered patient dental nerve block for pain which patient accepted. I am prescribing a short course of short-acting opioid pain medication for this patient. I have reviewed the patients EXTENSION COURSE COORDINATOR and no concerning findings were noted. I have discussed that the opioids are for short term therapy only, and will not be refilled from the ED. Instructed patient to continue to treat pain with ibuprofen/acetaminophen until they see a dentist. She was given 1 dose of clindamycin here in the emergency department she says that she is allergic to Augmentin.It was stressed to the patient that she needs to rock picker her antibiotics first thing tomorrow morning and to start taking them immediately and to follow-up with the dentist that the procedure Departure - Departure Disposition: 01 Home, Self Care Clinical Impression: Tooth abscess Condition: Stable Instructions: ED Tooth Pain Comments: We have given you a dental block here in the emergency department to help with your tooth pain but as we discussed I cannot stress the importance of going to the pharmacy tomorrow and picking up your antibiotics as this will be the only thing that can help fully resolve your pain as it will help with the infection. I would call Andrea Nieves tomorrow and get in with them as soon as possible as you may have a dry socket that needs to be addressed. Please rock picker the antibio tics at the pharmacy tomorrow prioritize this above all other things you will need to pick this up first thing in the morning and start taking it as prescribed. I am prescribing a short course of narcotic pain medication for you. These are potentially dangerous and addictive medications that should be used carefully. These medications may constipate you. Take an yuef-ssq-kraxtck stool softener (docusate) twice daily with plenty of water while taking these medications. If you go 24 hours without a bowel movement, take [id number]-[id number]-munobei miralax, per package instructions. Do not drink or drive while taking these medications. If you received narcotic or sedating medications while in the emergency department, do not drive for 24 hours. Store this medication in a safe, secure place and out of reach of children. It is a violation of federal law to give or sell this medication to another person or to use in a manner other than prescribed. The ED will not refill narcotic prescriptions, including prescriptions lost or stolen. To dispose of unwanted medications: 1. [facility] [address] in [place] has a medication drop box. They accept prescription medications (in pill form) Thursday through Thursday 9:00 a.m. to 5:00 p.m. 2. The [facility] [employer] accepts prescription medications (in pill form only) for disposal year round. Call for more information. 3. Contact the [facility] for the next [facility] sponsored prescription drug collection event. , [phone], or [phone]; Note that many narcotic pain relievers also contain Tylenol/acetaminophen. Please ensure that your total dose of acetaminophen from all sources does not exceed 3 g (3000 mg) per day. Forms: PCP List Discharge Date/Time: 02/19/24 20:33
[2024-02-19 19:16] VITALS: BP 134/78; O2SAT 98
[2024-02-19] MEDS: CLINDAMYCIN 150 MG CAPSULE PO STA (19:57)
[2024-02-19] MEDS: HYDROcod/ACET 5/325 Prepack 4 PO STA (20:23)
== END 2024-02-19 20:33 | disposition home or self-care (01) ==
LOC: ED 18:46
DX: K04.7 Periapical abscess without sinus (principal)
CPT/HCPCS: 64400; 99283; A9270

== ENCOUNTER 2024-05-27 08:32 | Emergency (ER) | payer MEDICAID ==
[2024-05-27 08:55] VITALS: BP 129/71; O2SAT 99
[2024-05-27 09:07] LABS: RAPID STREP SCREEN Negative (Negative)
--- NOTE | 2024-05-27 09:23 | ED Physician Documentation ---
PD HPI HEENT - Stated complaint Stated Complaint: SORE THROAT/SWELLING - Chief complaint Chief Complaint: Heent - History obtained from History obtained from: Patient - History of Present Illness Timing - onset: How many days ago (3) Timing - duration: Days (3) Timing - details: Gradual onset, Still present Location: Throat Improves: Medication Worsens: Swalllowing Associated symptoms: Congestion, Swollen nodes. No: Cough Similar symptoms before: Diagnosis (tonsilitis) Recently seen: Not recently seen - Additional information Additional information: 44-year-old Brie Serrano has a prior history of tonsillitis as a child she has had multiple episodes of strep and she has developed a sore throat 3 days ago she is having some difficulty swallowing she denies any cough or fever she is having more pain on the right side of her throat. Review of Systems Constitutional: denies: Fever Eyes: denies: Decreased vision Ears: denies: Ear pain Nose: reports: Congestion Throat: reports: Sore throat Cardiac: denies: Chest pain / pressure, Palpitations Respiratory: denies: Dyspnea, Cough GI: denies: Abdominal Pain, Nausea, Vomiting, Constipation, Diarrhea : denies: Dysuria, Frequency PD PAST MEDICAL HISTORY - Past Medical History Past Medical History: Yes Cardiovascular: None Respiratory: Other, Sleep apnea Neuro: None Endocrine/Autoimmune: None GI: Other SADDLE STITCHER: None : None HEENT: None Psych: Depression, Anxiety Musculoskeletal: None Derm: None - Past Surgical History Past Surgical History: Yes /SADDLE STITCHER: Hysterectomy, section - Present Medications Home Medications: Ambulatory Orders Medication Instructions Recorded Confirmed Albuterol Sulfate [Proair Hfa 1 - 2 puffs PO QID PRN 07/31/22 02/19/24 Inhaler] Sertraline [Zoloft] 50 mg PO DAILY 02/19/24 02/19/24 hydrOXYzine HCL [Hydroxyzine HCl] 25 mg PO HS 02/19/24 02/19/24 lamoTRIgine [Lamictal Xr] 50 mg PO HS 02/19/24 02/19/24 Azithromycin [Zithromax] 250 mg PO DAILY #6 tablet 05/27/24 - Allergies Allergies/Adverse Reactions: Allergies Allergy/AdvReac Type Severity Reaction Status Date / Time amoxicillin Allergy Unknown Verified 02/19/24 19:11 bee venom protein (honey bee) Allergy Unknown Verified 02/19/24 19:11 hydromorphone HCl * Allergy Nausea Verified 02/19/24 19:11 [From Dilaudid] iodine Allergy Respiratory Verified 02/19/24 19:11 latex Allergy Hives Verified 02/19/24 19:11 mold Allergy Unknown Verified 02/19/24 19:11 oxycodone HCl * Allergy Emesis Verified 02/19/24 19:11 [From Percocet] Penicillins Allergy Hives Verified 02/19/24 19:11 aspirin AdvReac Intermediate Epistaxis Verified 02/19/24 19:11 erythromycin base AdvReac Intermediate SWELLING Verified 02/19/24 19:11 codeine AdvReac Emesis Verified 02/19/24 19:11 pseudoephedrine HCl * AdvReac Edema Verified 02/19/24 19:11 [From Sudafed] - Social History Does the pt smoke?: No Smoking Status: Never smoker Does the pt drink ETOH?: Yes Does the pt have substance abuse?: Yes - Immunizations Immunizations are current?: Yes - POLST Patient has POLST: No PD ED PE NORMAL - Vitals Vital signs reviewed: Yes (Tachycardic) - General General: Alert and oriented X 3, No acute distress, Well developed/nourished - HEENT HEENT: Atraumatic, PERRL, EOMI, Ears normal, Moist mucous membranes, Other (There is swelling to both tonsils the right is more swollen than the left there is erythema to the anterior pillar and exudate present.) - Neck Neck: Supple, no meningeal sign, No bony TTP - Cardiac Cardiac: RRR, No murmur - Respiratory Respiratory: No respiratory distress, Clear bilaterally - Abdomen Abdomen: Soft, Non tender - Back Back: No CVA TTP, No spinal TTP - Derm Derm: Normal color, Warm and dry, No rash - Extremities Extremities: No deformity, No edema - Neuro Neuro: Alert and oriented X 3, provider relations coordinator 2-12 intact, No motor deficit, No sensory deficit, Normal speech Eye Opening: Spontaneous Motor: Obeys Commands Verbal: Oriented GCS Score: 15 - Psych Psych: Normal mood, Normal affect Results - Vitals Vitals: Vital Signs - 24 hr 05/27/24 08:44 Temperature 36.2 C L Heart Rate 104 H Respiratory 20 Rate Blood Pressure 129/71 O2 Saturation 99 Oxygen O2 Source Room air - Labs Labs: Laboratory Tests 05/27/24 08:48 Group A Strep Rapid Negative PD Medical Decision Making - ED course Complexity details: reviewed results, re-evaluated patient, considered differential, d/w patient Reviewed Lab Results: Rapid strep was negative ED course: 44-year-old female with a prior history of recurrent tonsillitis presents with tonsillar swelling to the right side. She has no evidence of otitis or pneumonia. She is treated in the emergency room with 10 mg [address] her on a short course of azithromycin as she is allergic to amoxicillin. A rapid strep was negative. Departure - Departure Disposition: 01 Home, Self Care Clinical Impression: Tonsillitis Condition: Stable Instructions: ED Tonsillitis Follow-Up: Judy Galloway ARNP [Primary Care Provider] - Prescriptions: Azithromycin [Zithromax] 250 mg PO DAILY #6 tablet Comments: Brie, today it looks like you have tonsillitis again mostly on the right side. Our expectations with treatment today are improvement in your symptoms, with the dose of dexamethasone we gave you, by this afternoon. I have E scribed some azithromycin to the [facility] in [place]. This is a clean up antibiotic that will be a short course. Again the expectation is improvement followed by resolution.
[2024-05-27] MEDS: CHERRY SYRUP 10 ML UDC PO ONE (09:41)
[2024-05-27] MEDS: DEXAMETHASONE 10 MG/ML VIAL PO STA (09:42)
== END 2024-05-27 09:45 | disposition home or self-care (01) ==
LOC: ED 08:32
DX: J03.90 Acute tonsillitis, unspecified (principal)
CPT/HCPCS: 87070; 87430; 99283; A9270

== ENCOUNTER 2024-06-02 09:03 | Outpatient (CLI) | payer MEDICAID ==
[2024-06-02 09:32] LABS: ALBUMIN 4.4 g/dL (3.2-5.5); ALBUMIN/GLOBULIN RATIO 1.8 (1.0-2.2); ALKALINE PHOSPHATASE 150 IU/L (42-121); ALT ALANINE AMINOTRANSFERASE 17 IU/L (10-60); AST ASPARTATE AMINOTRANSFERASE 15 IU/L (10-42); BILIRUBIN,TOTAL 0.6 mg/dL (0.2-1.0); BUN - BLOOD UREA NITROGEN 12 mg/dL (6-20); CALCIUM 9.7 mg/dL (8.5-10.3); CARBON DIOXIDE - CO2 29 mmol/L (21-32); CHLORIDE 104 mmol/L (101-111); CREATININE 0.8 mg/dL (0.6-1.3); CRP - C-REACTIVE PROTEIN < 0.5 mg/dL (<0.5); GFR - MDRD 79 (>89); GLUCOSE 103 mg/dL (74-104); POTASSIUM 3.9 mmol/L (3.5-4.5); SODIUM 139 mmol/L (135-145); TOTAL PROTEIN 6.9 g/dL (6.4-8.9)
== END 2024-06-02 09:04 | disposition home or self-care (01) ==
LOC: LAB 09:03
PROVIDERS: ATTEND Nurse Practitioner
DX: R74.8 Abnormal levels of other serum enzymes (principal); R53.83 Other fatigue
CPT/HCPCS: 36415; 80053; 85651; 86140

== ENCOUNTER 2024-08-08 09:15 | Outpatient (CLI) | payer BC, MEDICAID ==
--- NOTE | 2024-08-08 15:58 | Ultrasound Report ---
PROCEDURE: Abdomen Limited INDICATIONS: HEPATIC HEMANGIOMAS, OVARIAN CYST TECHNIQUE: Real-time focused scanning was performed of the abdomen, with image documentation. COMPARISONS: MRI abdomen with and without contrast 02/12/2022, ultrasound abdomen 07/05/2023 FINDINGS: Liver: Liver is normal in size. The parenchyma is hyperechoic. In the right hepatic lobe, there is a 7.6 x 6.0 x 7.1 cm (5.6 x 7.1 x 7.1 cm on 07/05/2023) hyperechoic mass with peripheral nodular flow. The main portal vein is patent and measures 15 mm in size. IMPRESSION: 1.Slight interval increase in size of 7.6 cm right hepatic lobe hemangioma. 2.Hepatic steatosis. Reviewed by: Patel Tabor MD on 08/08/2024 3:57 PM PDT Approved by: Patel Tabor MD on 08/08/2024 3:57 PM PDT Station ID: [id number]
--- NOTE | 2024-08-08 16:26 | Ultrasound Report ---
PROCEDURE: Pelvic w/Transvaginal INDICATIONS: HEPATIC HEMANGIOMAS, OVARIAN CYST TECHNIQUE: Real-time scanning was performed of the pelvic organs, with image documentation. Additional endovagi nal scanning was necessary due to incomplete visualization of the adnexal and endometrial structures by transabdominal scanning. COMPARISON: Pelvic ultrasound 01/09/2023, 07/22/2022 and 01/16/2022 FINDINGS: Uterus: Status post hysterectomy. Ovaries: The right ovary measures 1.6 x 1.3 x 1.7 cm, with a calculated ovarian volume of 1.8 cc. T he left ovary measures 3.7 x 4.5 x 3.8 cm, with a calculated ovarian volume of 33 cc. Within the lef t ovary, there is a 2.9 x 2.4 x 2.6 cm lesion with low level internal internally echoes and multiple thin septations with crenulated borders. The ovaries otherwise have a normal sonographic appearance. Less than 12 follicles can be seen in each ovary. No adnexal masses are seen. No other cystic lesio ns measuring greater than 3 cm. Other: No pathologic free abdominal or pelvic fluid. IMPRESSION: 1.Left ovarian 2.6 cm endometrioma versus hemorrhagic cyst (should resolve in 2-3 menstrual cycles). Please correlate for a history of endometriosis. 2.Otherwise, no sonographic abnormality of the ovaries. Reviewed by: Patel Tabor MD on 08/08/2024 4:25 PM PDT Approved by: Patel Tabor MD on 08/08/2024 4:25 PM PDT Station ID: [id number]
== END 2024-08-08 09:16 | disposition home or self-care (01) ==
LOC: DI 09:15
PROVIDERS: ATTEND Nurse Practitioner
DX: D18.03 Hemangioma of intra-abdominal structures (principal); K76.0 Fatty (change of) liver, not elsewhere classified; N83.292 Other ovarian cyst, left side